=== PATIENT | male | born 1985 | race Caucasian/White ===

== ENCOUNTER 2017-10-12 21:09 | Emergency (ER) | payer OTHER ==
[2017-10-12] MEDS ORDERED: SODIUM CHLORIDE 0.9% 1,000 ML IV STA (21:17)
--- NOTE | 2017-10-12 21:21 | ED ---
Seizure HPI - General Stated Complaint: Seizure, Fall Time Seen by Provider: 10/12/17 21:11 Source: RN notes reviewed, old records reviewed - History of Present Illness Initial Comments: This is a 32-year-old male presents emergency department today chief complaint of seizure activity. He reports that he was on the top of 4 stairs had a seizure and then fell. He arrives EMS. He states is having more frequent seizures over the past 6 months. He is on Depakote and Vimpat. He states he has seen Dr. Shea in the past. Patient states that he has been taking his medications regularly. Denies any fever or chills or any other symptoms. He states that he otherwise isn't feeling well. Related to the fall he does complain of some lower back pain. He does have a history of degenerative disc disease in his lumbar spine. - Related Data Home Medications Medication Instructions Recorded Confirmed Albuterol Sulfate [Proair Hfa] 1 - 2 puff INHALATION RT-QID PRN 10/12/17 Cetirizine HCl [Zyrtec] 10 mg PO HS 10/12/17 10/12/17 Divalproex Sodium [Depakote] 500 mg PO BID 10/12/17 10/12/17 Lacosamide [Vimpat] 50 mg PO BID 10/12/17 10/12/17 Allergies Allergy/AdvReac Type Severity Reaction Status Date / Time codeine Allergy Anaphylaxis Verified 10/12/17 21:50 grape Allergy Unknown Verified 10/12/17 21:50 Review of Systems ROS Statement: Those systems with pertinent positive or pertinent negative responses have been documented in the HPI. ROS Other: All systems not noted in ROS Statement are negative. Past Medical History Past Medical History: Asthma, Seizure Disorder Additional Past Medical History / Comment(s): CHRONIC BRONCHITIS History of Any Multi-Drug Resistant Organisms: None Reported Past Surgical History: Adenoidectomy Past Psychological History: Anxiety, Bipolar Smoking Status: Current every day smoker Past Alcohol Use History: Occasional Past Drug Use History: Marijuana General Exam - General Exam Comments Initial Comments: 32-year-old male. Alert and oriented 3. In a c-collar. No distress. He does appear to be somewhat postictal and lethargic. General appearance: alert, in no apparent distress Head exam: Present: atraumatic, normocephalic, normal inspection Eye exam: Present: normal appearance, PERRL, EOMI. Absent: scleral icterus, conjunctival injection, periorbital swelling ENT exam: Present: normal exam, mucous membranes moist Neck exam: Present: normal inspection, other (Patient placed in c-collar.). Absent: tenderness, meningismus, lymphadenopathy Respiratory exam: Present: normal lung sounds bilaterally. Absent: respiratory distress, wheezes, rales, rhonchi, stridor Cardiovascular Exam: Present: regular rate, normal rhythm, normal heart sounds. Absent: systolic murmur, diastolic murmur, rubs, gallop, clicks GI/Abdominal exam: Present: soft, normal bowel sounds. Absent: distended, tenderness, guarding, rebound, rigid Extremities exam: Present: normal inspection, full ROM, normal capillary refill. Absent: tenderness, pedal edema, joint swelling, calf tenderness Back exam: Present: normal inspection, other (Lumbar spinal tenderness.) Neurological exam: Present: alert, oriented X3, CN II-XII intact Expanded Patient oriented to: Present: person, place, time Speech: Present: fluid speech Cranial nerves: EOM's Intact: Normal, Facial Sensation: Normal Cerebellar function: Finger to Nose: Normal Upper motor neuron: Pronator Drift: Normal Sensory exam: Upper Extremity Light Touch: Normal, Lower Extremity Light Touch: Normal Motor strength exam: RUE: 5, LUE: 5, RLE: 5, LLE: 5 Eye Response: (4) open spontaneously Motor Response: (6) obeys commands Verbal Response: (5) oriented [place] Total: 15 Psychiatric exam: Present: normal affect, normal mood Skin exam: Present: warm, dry, intact, normal color. Absent: rash Course Vital Signs 10/12/17 10/12/17 21:19 23:04 Temperature 98.7 F Pulse Rate 91 87 Respiratory 16 18 Rate Blood Pressure 164/102 127/97 O2 Sat by Pulse 98 97 Oximetry - Reevaluation(s) Reevaluation #1: 10/12/17 21:34 Patient had a one episode of tonic-clonic seizure. Was given 1 mg of Ativan. He is postictal at this time. Medical Decision Making - Medical Decision Making This patient is a 32 year old male CC of multiple seizures. Patient had 2 "seizure" episodes in ED, however he had a positive drop arm test. Patient was continuiing to have these episodes for 3 minutes each. Patient fell down the stairs during first seizure episode, and was placed in C collar. Patient was given CT brain and cspine, which was negative and patient was then removed from C collar. All other labs were reviewed and unremarkable. PAtient reports he has multiple seizures a day. His depakote level is within therapuetic range. Patient informed due to history of multiple seizures, as well as 2 seizures and post ictal periods in ED, I wanted to admit the patient. He reported that he did not want to stay and wanted to smoke a cigarrette. Advised him that if he was admitted, I could not allow him to leave and smoke and return. Offered nicotine patch, and patient refused. Patient will be leaving AMA. He is with a friend, whom will be staying with him. Return parameters discussed. - Lab Data Result diagrams: 10/12/17 20:48 10/12/17 20:48 Lab Results 10/12/17 10/12/17 10/12/17 Range/Units 20:48 20:48 20:48 WBC 8.1 (3.8-10.6) k/uL RBC 5.38 (4.30-5.90) m/uL Hgb 15.7 (13.0-17.5) gm/dL Hct 46.4 (39.0-53.0) % MCV 86.4 (80.0-100.0) fL MCH 29.3 (25.0-35.0) pg MCHC 33.9 (31.0-37.0) g/dL RDW 12.8 (11.5-15.5) % Plt Count 178 (150-450) k/uL Neutrophils % 52 % Lymphocytes % 35 % Monocytes % 6 % Eosinophils % 5 % Basophils % 1 % Neutrophils # 4.2 (1.3-7.7) k/uL Lymphocytes # 2.8 (1.0-4.8) k/uL Monocytes # 0.5 (0-1.0) k/uL Eosinophils # 0.4 (0-0.7) k/uL Basophils # 0.1 (0-0.2) k/uL Sodium 142 (137-145) mmol/L Potassium 4.1 (3.5-5.1) mmol/L Chloride 103 (98-107) mmol/L Carbon Dioxide 23 (22-30) mmol/L Anion Gap 16 mmol/L BUN 7 L (9-20) mg/dL Creatinine 0.90 (0.66-1.25) mg/dL Est GFR (CKD-EPI)AfAm >90 (>60 ml/min/1.73 sqM) Est GFR (CKD-EPI)NonAf >90 (>60 ml/min/1.73 sqM) Glucose 89 (74-99) mg/dL Calcium 9.7 (8.4-10.2) mg/dL Total Bilirubin 0.5 (0.2-1.3) mg/dL AST 25 (17-59) U/L ALT 33 (21-72) U/L Alkaline Phosphatase 53 (38-126) U/L Troponin I <0.012 (0.000-0.034) ng/mL Total Protein 6.9 (6.3-8.2) g/dL Albumin 4.3 (3.5-5.0) g/dL Urine Color Urine Appearance (Clear) Urine pH (5.0-8.0) Ur Specific [place] (1.001-1.035) Urine Protein (Negative) Urine Glucose (UA) (Negative) Urine Ketones (Negative) Urine Blood (Negative) Urine Nitrite (Negative) Urine Bilirubin (Negative) Urine Urobilinogen (<2.0) mg/dL Ur Leukocyte Esterase (Negative) Urine Opiates Screen (NotDetected) Ur Oxycodone Screen (NotDetected) Urine Methadone Screen (NotDetected) Ur Propoxyphene Screen (NotDetected) Ur Barbiturates Screen (NotDetected) Valproic Acid 74.9 ug/mL U Tricyclic Antidepress (NotDetected) Ur Phencyclidine Scrn (NotDetected) Ur Amphetamines Screen (NotDetected) U Methamphetamines Scrn (NotDetected) U Benzodiazepines Scrn (NotDetected) Urine Cocaine Screen (NotDetected) U Marijuana (THC) Screen (NotDetected) 10/12/17 Range/Units 23:56 WBC (3.8-10.6) k/uL RBC (4.30-5.90) m/uL Hgb (13.0-17.5) gm/dL Hct (39.0-53.0) % MCV (80.0-100.0) fL MCH (25.0-35.0) pg MCHC (31.0-37.0) g/dL RDW (11.5-15.5) % Plt Count (150-450) k/uL Neutrophils % % Lymphocytes % % Monocytes % % Eosinophils % % Basophils % % Neutrophils # (1.3-7.7) k/uL Lymphocytes # (1.0-4.8) k/uL Monocytes # (0-1.0) k/uL Eosinophils # (0-0.7) k/uL Basophils # (0-0.2) k/uL Sodium (137-145) mmol/L Potassium (3.5-5.1) mmol/L Chloride (98-107) mmol/L Carbon Dioxide (22-30) mmol/L Anion Gap mmol/L BUN (9-20) mg/dL Creatinine (0.66-1.25) mg/dL Est GFR (CKD-EPI)AfAm (>60 ml/min/1.73 sqM) Est GFR (CKD-EPI)NonAf (>60 ml/min/1.73 sqM) Glucose (74-99) mg/dL Calcium (8.4-10.2) mg/dL Total Bilirubin (0.2-1.3) mg/dL AST (17-59) U/L ALT (21-72) U/L Alkaline Phosphatase (38-126) U/L Troponin I (0.000-0.034) ng/mL Total Protein (6.3-8.2) g/dL Albumin (3.5-5.0) g/dL Urine Color Yellow Urine Appearance Clear (Clear) Urine pH 7.0 (5.0-8.0) Ur Specific [place] 1.008 (1.001-1.035) Urine Protein Negative (Negative) Urine Glucose (UA) Negative (Negative) Urine Ketones Negative (Negative) Urine Blood Negative (Negative) Urine Nitrite Negative (Negative) Urine Bilirubin Negative (Negative) Urine Urobilinogen <2.0 (<2.0) mg/dL Ur Leukocyte Esterase Negative (Negative) Urine Opiates Screen Not Detected (NotDetected) Ur Oxycodone Screen Not Detected (NotDetected) Urine Methadone Screen Not Detected (NotDetected) Ur Propoxyphene Screen Not Detected (NotDetected) Ur Barbiturates Screen Not Detected (NotDetected) Valproic Acid ug/mL U Tricyclic Antidepress Not Detected (NotDetected) Ur Phencyclidine Scrn Not Detected (NotDetected) Ur Amphetamines Screen Not Detected (NotDetected) U Methamphetamines Scrn Not Detected (NotDetected) U Benzodiazepines Scrn Not Detected (NotDetected) Urine Cocaine Screen Not Detected (NotDetected) U Marijuana (THC) Screen Detected H (NotDetected) 10/13/17 03:54 EKG shows sinus rhythm, normal EKG. Ventricularly of 89 bpm. FL interval 134 ms. QRS duration 84 ms. QT QTc is 344/[address] elevation or T-wave inversion. 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 No changes. No fractures noted. Normal chest x-ray. No acute changes. Disposition Clinical Impression: Seizure Disposition: Left Against Medical Advice Condition: Stable Referrals: None,Stated [Primary Care Provider] - 1-2 days Aylin Joseph MD [STAFF PHYSICIAN] - 1-2 days Time of Disposition: 01:17
[2017-10-12] MEDS ORDERED: MORPHINE SULFATE 4MG/4ML SYRG IVP ONE (21:24)
[2017-10-12 21:25] VITALS: TEMP 98.7
[2017-10-12] MEDS: LORazepam 2 MG/ML INJ IV STA (21:35)
[2017-10-12 22:02] LABS: Basophils # (A) 0.1 k/uL (0-0.2); Basophils % (A) 1 %; Eosinophils # (A) 0.4 k/uL (0-0.7); Eosinophils % (A) 5 %; HCT 46.4 % (39.0-53.0); HGB 15.7 gm/dL (13.0-17.5); Lymphocytes # (A) 2.8 k/uL (1.0-4.8); Lymphocytes % (A) 35 %; MCH 29.3 pg (25.0-35.0); MCHC 33.9 g/dL (31.0-37.0); MCV 86.4 fL (80.0-100.0); Mean Platelet Volume 7.3; Monocytes # (A) 0.5 k/uL (0-1.0); Monocytes % (A) 6 %; Neutrophils # (A) 4.2 k/uL (1.3-7.7); Neutrophils % (A) 52 %; Platelet Count 178 k/uL (150-450); RBC 5.38 m/uL (4.30-5.90); RDW 12.8 % (11.5-15.5); WBC 8.1 k/uL (3.8-10.6)
[2017-10-12 22:24] LABS: ALT 33 U/L (21-72); AST 25 U/L (17-59); Albumin 4.3 g/dL (3.5-5.0); Alkaline Phosphatase 53 U/L (38-126); Anion Gap 16 mmol/L; Blood Urea Nitrogen 7 mg/dL (9-20); Calcium 9.7 mg/dL (8.4-10.2); Carbon Dioxide 23 mmol/L (22-30); Chloride 103 mmol/L (98-107); Glucose 89 mg/dL (74-99); Potassium 4.1 mmol/L (3.5-5.1); Sodium 142 mmol/L (137-145); Total Bilirubin 0.5 mg/dL (0.2-1.3); Total Protein 6.9 g/dL (6.3-8.2)
--- NOTE | 2017-10-12 22:28 | CT ---
EXAMINATION TYPE: CT brain howard wo con DATE OF EXAM: 10/12/2017 COMPARISON: 10/06/2014 HISTORY: Seizure today, history of seizures. Fall down 4 steps. Posterior head pain. Neck pain CT DLP: 1387 mGycm Automated exposure control for dose reduction was used. TECHNIQUE: CT scan of the head and cervical spine are performed without contrast. FINDINGS: Ventricles have normal size. There is no mass effect nor midline shift. There is no sign of intracranial hemorrhage. The calvarium is intact. The cervical vertebra have normal alignment. Posterior elements are intact. Disc spaces are normal fo r age. The skull base appears intact. Facet joints appear intact. IMPRESSION: Negative CT scan of the brain. Negative CT scan of the cervical spine. No change.
[2017-10-12 22:29] LABS: Valproic Acid (Depakene) 74.9 ug/mL
[2017-10-12 23:06] VITALS: BP 127/97; PULSE 87; RESP 18
--- NOTE | 2017-10-12 23:25 | XR ---
EXAMINATION TYPE: XR chest 2V DATE OF EXAM: 10/12/2017 COMPARISON: 03/03/2016 HISTORY: Chest pain TECHNIQUE: Frontal and lateral views of the chest are obtained. FINDINGS: Heart and mediastinum are normal. Lungs are clear. Diaphragm is normal. Bony thorax appear s normal. IMPRESSION: Normal chest. No change.
--- NOTE | 2017-10-12 23:27 | XR ---
EXAMINATION TYPE: XR lumbar spine 2 or 3V DATE OF EXAM: 10/12/2017 COMPARISON: 03/03/2016 HISTORY: Back pain TECHNIQUE: 3 views FINDINGS: Vertebra have normal spacing and alignment. There is probably L5 spondylolysis. This is unc hanged.. Disc spaces are fairly well-maintained. I see no compression fracture. IMPRESSION: There is probably L5 spondylolysis without any spondylolisthesis. No change. No acute fra cture seen.
[2017-10-13 00:04] LABS: Appearance,Urine Clear (Clear); Bilirubin,Urine Negative (Negative); Blood,Urine Negative (Negative); Color,Urine Yellow; Glucose,Urine (UA) Negative (Negative); Ketones,Urine Negative (Negative); Leukocyte Esterase,Urine Negative (Negative); Nitrite,Urine Negative (Negative); Protein,Urine Negative (Negative); Specific Gravity,Urine 1.008 (1.001-1.035); Urobilinogen,Urine <2.0 mg/dL (<2.0)
[2017-10-13 00:27] LABS: Amphetamine Screen,Urine Not Detected (NotDetected); Barbiturate Screen,Urine Not Detected (NotDetected); Benzodiazepines Screen,Urine Not Detected (NotDetected); Cocaine Screen,Urine Not Detected (NotDetected); Methadone Screen, Urine Not Detected (NotDetected); Opiate Screen,Urine Not Detected (NotDetected); Oxycodone Screen, Urine Not Detected (NotDetected); Phencyclidine Screen,Urine Not Detected (NotDetected); Tricyclic Antidepressant,Urine Not Detected (NotDetected); Urn Cannabinoid Scrn Detected (NotDetected)
[2017-10-13] MEDS: LORazepam 2 MG/ML INJ IV STA (00:43)
== END 2017-10-13 02:06 | disposition left against medical advice (07) ==
LOC: EC 21:09
DX: M54.5 Low back pain (principal); G40.909 Epilepsy, unspecified, not intractable, without status epilepticus; F17.200 Nicotine dependence, unspecified, uncomplicated; Z79.899 Other long term (current) drug therapy; Z88.5 Allergy status to narcotic agent; Z91.018 Allergy to other foods; Z53.8 Procedure and treatment not carried out for other reasons; W10.9XXA Fall (on) (from) unspecified stairs and steps, initial encounter
CPT/HCPCS: 36415; 93005; 80164; 80053; 84484; 85025; 80306; 72100; 71046; 72125; 70450; 99285; 96374; 96361 ×3; J2060; 81003

== ENCOUNTER 2017-12-06 10:43 | Emergency (ER) | payer OTHER ==
[2017-12-06 11:00] VITALS: RESP 18
--- NOTE | 2017-12-06 11:02 | ED ---
General Adult HPI - General Chief complaint: Seizure Stated complaint: Seizure Time Seen by Provider: 12/06/17 11:00 Source: patient, RN notes reviewed Mode of arrival: EMS Limitations: no limitations - History of Present Illness Initial comments: This is a 32-year-old male who presents emergency Department with a past medical history for seizures. Patient states she's been on Depakote for 3 months. Patient states she missed today's dose. Patient denies being sick at all lately however he states he does have a dry cough. Patient denies any nausea vomiting diarrhea. Patient denies chest pain palpitations. Patient denies any headache patient denies numbness weakness. Patient denies any lightheadedness or dizziness. Patient denies abdominal pain. Patient denies any recent injury or trauma. He states he was at his neurologist office when he sees in a chair and they sent him here. Patient denies drug use. - Related Data Home Medications Medication Instructions Recorded Confirmed Albuterol Sulfate [Proair Hfa] 1 - 2 puff INHALATION RT-QID PRN 10/12/17 Cetirizine HCl [Zyrtec] 10 mg PO HS 10/12/17 12/06/17 Divalproex Sodium [Depakote] 500 mg PO BID 10/12/17 12/06/17 Allergies Allergy/AdvReac Type Severity Reaction Status Date / Time codeine Allergy Anaphylaxis Verified 12/06/17 11:05 grape Allergy Unknown Verified 12/06/17 11:05 Review of Systems ROS Statement: Those systems with pertinent positive or pertinent negative responses have been documented in the HPI. ROS Other: All systems not noted in ROS Statement are negative. Past Medical History Past Medical History: Asthma, Seizure Disorder Additional Past Medical History / Comment(s): CHRONIC BRONCHITIS History of Any Multi-Drug Resistant Organisms: None Reported Past Surgical History: Adenoidectomy Past Psychological History: Anxiety, Bipolar Smoking Status: Current every day smoker Past Alcohol Use History: Occasional Past Drug Use History: Marijuana General Exam - General Exam Comments Initial Comments: GENERAL: Patient is well-developed and well-nourished. Patient is nontoxic and well- hydrated and is in no acute distress. ENT: Neck is soft and supple. No significant lymphadenopathy is noted. Oropharynx is clear. Moist mucous membranes. Neck has full range of motion without eliciting any pain. EYES: The sclera were anicteric and conjunctiva were pink and moist. Extraocular movements were intact and pupils were equal round and reactive to light. Eyelids were unremarkable. PULMONARY: Unlabored respirations. Good breath sounds bilaterally. No audible rales rhonchi or wheezing was noted. CARDIOVASCULAR: There is a regular rate and rhythm without any murmurs gallops or rubs. ABDOMEN: Soft and nontender with normal bowel sounds. No palpable organomegaly was noted. There is no palpable pulsatile mass. SKIN: Skin is clear with no lesions or rashes and otherwise unremarkable. NEUROLOGIC: Patient is alert and oriented x3. Cranial nerves II through XII are grossly intact. Motor and sensory are also intact. Normal speech, volume and content. Symmetrical smile. MUSCULOSKELETAL: Normal extremities with adequate strength and full range of motion. No lower extremity swelling or edema. No calf tenderness. LYMPHATICS: No significant lymphadenopathy is noted PSYCHIATRIC: Normal psychiatric evaluation. Normal interpersonal interactions appears functionally intact in deals appropriately with others. No signs of depression. No signs of anxiety. Limitations: no limitations Course Vital Signs 12/06/17 10:56 Temperature 98.4 F Pulse Rate 74 Respiratory 18 Rate Blood Pressure 134/62 O2 Sat by Pulse 99 Oximetry Medical Decision Making - Medical Decision Making I spoke with Dr. Joseph's PA and he stated that the patient was a noncompliant patient. - Lab Data Result diagrams: 12/06/17 11:10 12/06/17 11:10 Lab Results 12/06/17 12/06/17 12/06/17 Range/Units 11:10 11:10 11:10 WBC 7.7 (3.8-10.6) k/uL RBC 5.08 (4.30-5.90) m/uL Hgb 15.3 (13.0-17.5) gm/dL Hct 44.5 (39.0-53.0) % MCV 87.6 (80.0-100.0) fL MCH 30.2 (25.0-35.0) pg MCHC 34.5 (31.0-37.0) g/dL RDW 13.7 (11.5-15.5) % Plt Count 206 (150-450) k/uL Neutrophils % 64 % Lymphocytes % 23 % Monocytes % 7 % Eosinophils % 5 % Basophils % 0 % Neutrophils # 4.9 (1.3-7.7) k/uL Lymphocytes # 1.8 (1.0-4.8) k/uL Monocytes # 0.5 (0-1.0) k/uL Eosinophils # 0.4 (0-0.7) k/uL Basophils # 0.0 (0-0.2) k/uL Sodium 142 (137-145) mmol/L Potassium 4.2 (3.5-5.1) mmol/L Chloride 104 (98-107) mmol/L Carbon Dioxide 26 (22-30) mmol/L Anion Gap 12 mmol/L BUN 13 (9-20) mg/dL Creatinine 0.80 (0.66-1.25) mg/dL Est GFR (CKD-EPI)AfAm >90 (>60 ml/min/1.73 sqM) Est GFR (CKD-EPI)NonAf >90 (>60 ml/min/1.73 sqM) Glucose 109 H (74-99) mg/dL Calcium 9.1 (8.4-10.2) mg/dL Total Bilirubin 0.3 (0.2-1.3) mg/dL AST 22 (17-59) U/L ALT 33 (21-72) U/L Alkaline Phosphatase 46 (38-126) U/L Total Protein 6.2 L (6.3-8.2) g/dL Albumin 3.9 (3.5-5.0) g/dL Urine Opiates Screen (NotDetected) Ur Oxycodone Screen (NotDetected) Urine Methadone Screen (NotDetected) Ur Propoxyphene Screen (NotDetected) Ur Barbiturates Screen (NotDetected) Valproic Acid 39.6 ug/mL U Tricyclic Antidepress (NotDetected) Ur Phencyclidine Scrn (NotDetected) Ur Amphetamines Screen (NotDetected) U Methamphetamines Scrn (NotDetected) U Benzodiazepines Scrn (NotDetected) Urine Cocaine Screen (NotDetected) U Marijuana (THC) Screen (NotDetected) 12/06/17 Range/Units 12:13 WBC (3.8-10.6) k/uL RBC (4.30-5.90) m/uL Hgb (13.0-17.5) gm/dL Hct (39.0-53.0) % MCV (80.0-100.0) fL MCH (25.0-35.0) pg MCHC (31.0-37.0) g/dL RDW (11.5-15.5) % Plt Count (150-450) k/uL Neutrophils % % Lymphocytes % % Monocytes % % Eosinophils % % Basophils % % Neutrophils # (1.3-7.7) k/uL Lymphocytes # (1.0-4.8) k/uL Monocytes # (0-1.0) k/uL Eosinophils # (0-0.7) k/uL Basophils # (0-0.2) k/uL Sodium (137-145) mmol/L Potassium (3.5-5.1) mmol/L Chloride (98-107) mmol/L Carbon Dioxide (22-30) mmol/L Anion Gap mmol/L BUN (9-20) mg/dL Creatinine (0.66-1.25) mg/dL Est GFR (CKD-EPI)AfAm (>60 ml/min/1.73 sqM) Est GFR (CKD-EPI)NonAf (>60 ml/min/1.73 sqM) Glucose (74-99) mg/dL Calcium (8.4-10.2) mg/dL Total Bilirubin (0.2-1.3) mg/dL AST (17-59) U/L ALT (21-72) U/L Alkaline Phosphatase (38-126) U/L Total Protein (6.3-8.2) g/dL Albumin (3.5-5.0) g/dL Urine Opiates Screen Not Detected (NotDetected) Ur Oxycodone Screen Not Detected (NotDetected) Urine Methadone Screen Not Detected (NotDetected) Ur Propoxyphene Screen Not Detected (NotDetected) Ur Barbiturates Screen Not Detected (NotDetected) Valproic Acid ug/mL U Tricyclic Antidepress Not Detected (NotDetected) Ur Phencyclidine Scrn Not Detected (NotDetected) Ur Amphetamines Screen Not Detected (NotDetected) U Methamphetamines Scrn Not Detected (NotDetected) U Benzodiazepines Scrn Not Detected (NotDetected) Urine Cocaine Screen Not Detected (NotDetected) U Marijuana (THC) Screen Detected H (NotDetected) Disposition Clinical Impression: Generalized seizure Disposition: HOME SELF-CARE Condition: Good Instructions: Recurrent Seizures in Adults (ED) Is patient prescribed a controlled substance at d/c from ED?: No Referrals: None,Stated [Primary Care Provider] - 1-2 days Time of Disposition: 13:32
[2017-12-06 11:26] LABS: Basophils % (A) 0 %; Eosinophils # (A) 0.4 k/uL (0-0.7); Eosinophils % (A) 5 %; HCT 44.5 % (39.0-53.0); HGB 15.3 gm/dL (13.0-17.5); Lymphocytes # (A) 1.8 k/uL (1.0-4.8); Lymphocytes % (A) 23 %; MCH 30.2 pg (25.0-35.0); MCHC 34.5 g/dL (31.0-37.0); MCV 87.6 fL (80.0-100.0); Monocytes # (A) 0.5 k/uL (0-1.0); Monocytes % (A) 7 %; Neutrophils # (A) 4.9 k/uL (1.3-7.7); Neutrophils % (A) 64 %; Platelet Count 206 k/uL (150-450); RBC 5.08 m/uL (4.30-5.90); RDW 13.7 % (11.5-15.5); WBC 7.7 k/uL (3.8-10.6)
[2017-12-06 11:46] LABS: ALT 33 U/L (21-72); AST 22 U/L (17-59); Albumin 3.9 g/dL (3.5-5.0); Alkaline Phosphatase 46 U/L (38-126); Anion Gap 12 mmol/L; Blood Urea Nitrogen 13 mg/dL (9-20); Calcium 9.1 mg/dL (8.4-10.2); Carbon Dioxide 26 mmol/L (22-30); Chloride 104 mmol/L (98-107); Glucose 109 mg/dL (74-99); Potassium 4.2 mmol/L (3.5-5.1); Sodium 142 mmol/L (137-145); Total Bilirubin 0.3 mg/dL (0.2-1.3); Total Protein 6.2 g/dL (6.3-8.2)
[2017-12-06 12:27] LABS: Amphetamine Screen,Urine Not Detected (NotDetected); Barbiturate Screen,Urine Not Detected (NotDetected); Benzodiazepines Screen,Urine Not Detected (NotDetected); Cocaine Screen,Urine Not Detected (NotDetected); Methadone Screen, Urine Not Detected (NotDetected); Opiate Screen,Urine Not Detected (NotDetected); Oxycodone Screen, Urine Not Detected (NotDetected); Phencyclidine Screen,Urine Not Detected (NotDetected); Tricyclic Antidepressant,Urine Not Detected (NotDetected); Urn Cannabinoid Scrn Detected (NotDetected)
--- NOTE | 2017-12-06 13:16 | XR ---
EXAMINATION TYPE: XR chest 2V DATE OF EXAM: 12/06/2017 COMPARISON: 10/12/2017 INDICATION: Difficulty breathing, seizure TECHNIQUE: Frontal and lateral views of the chest are obtained. FINDINGS: The heart size is normal. The pulmonary vasculature is normal. The lungs are clear. IMPRESSION: 1. No acute pulmonary process.
[2017-12-06] MEDS ORDERED: DIVALPROEX 500 MG TABLET.DR PO STA (13:30)
[2017-12-06 13:40] VITALS: BP 134/71; PULSE 76; TEMP 97.8
== END 2017-12-06 13:47 | disposition home or self-care (01) ==
LOC: EC 10:43
DX: G40.909 Epilepsy, unspecified, not intractable, without status epilepticus (principal); R05 Cough; J45.909 Unspecified asthma, uncomplicated; F41.9 Anxiety disorder, unspecified; F31.9 Bipolar disorder, unspecified; F17.200 Nicotine dependence, unspecified, uncomplicated; Z79.899 Other long term (current) drug therapy; Z88.5 Allergy status to narcotic agent; Z91.018 Allergy to other foods
CPT/HCPCS: 36415; 71046; 80053; 80164; 80306; 85025; 99284

== ENCOUNTER 2018-07-16 14:43 | Emergency (ER) | payer OTHER ==
[2018-07-16 15:11] VITALS: RESP 16
[2018-07-16] MEDS ORDERED: LORazepam 2 MG/ML INJ IV STA (15:11)
--- NOTE | 2018-07-16 15:19 | ED ---
General Adult HPI - General Chief complaint: Seizure Stated complaint: Seizure Source: patient, family Mode of arrival: wheelchair Limitations: altered mental status - History of Present Illness Initial comments: 33yo male with previous seizure disorder presenting today for chief complaint of medication noncompliance and recurring seizures. Upon chart review there are noted examination findings including positive drop arm testing during "seizure activity". Upon presentation today patient states that he has had increasing seizures since he has been off of his medication of Depakote a 500 mg twice a day. Patient states that he lost his insurance recently has not been able to afford these medications for almost a year. Patient states he has been kicked out of 2 neurology offices due to noncompliance. Patient states he has been stressed from being jobless and lives circumstances so he feels this could be causing the seizure activity. He states he was not able to get much sleep last night due to seizure activity. The seizures were not witnessed, patient denies any biting of tongue or incontinence. Patient is unsure if he has fallen, he states he thinks it all happened in his bed. Patient states he was on his way to work, his grandfather was driving him when his grandfather stated he began shaking. Denied loss of consciousness. Patient was alert and oriented 3 following "seizure like activity". Upon arrival pt is AAOx3, this was 2 minutes following seizure in care. No evidence of incontinence. Pt appears well. Remainder of ROS (-), patient denies any recent fever, chills, shortness of breath, chest pain, back pain, abdominal pain, nausea or vomiting, numbness or tingling, dysuria or hematuria, constipation or diarrhea, headaches or visual changes, or any other complaints. - Related Data Home Medications Medication Instructions Recorded Confirmed Albuterol Sulfate [Proair Hfa] 1 - 2 puff INHALATION RT-QID PRN 10/12/17 Cetirizine HCl [Zyrtec] 10 mg PO HS 10/12/17 12/06/17 Divalproex Sodium [Depakote] 500 mg PO BID 10/12/17 12/06/17 Previous Rx's Medication Instructions Recorded Divalproex [Depakote] 500 mg PO BID 10 Days #20 tablet. 07/16/18 Allergies Allergy/AdvReac Type Severity Reaction Status Date / Time codeine Allergy Anaphylaxis Verified 07/16/18 15:11 grape Allergy Unknown Verified 07/16/18 15:11 Review of Systems ROS Statement: Those systems with pertinent positive or pertinent negative responses have been documented in the HPI. ROS Other: All systems not noted in ROS Statement are negative. Past Medical History Past Medical History: Asthma, Seizure Disorder Additional Past Medical History / Comment(s): CHRONIC BRONCHITIS History of Any Multi-Drug Resistant Organisms: None Reported Past Surgical History: Adenoidectomy Past Psychological History: Anxiety, Bipolar Smoking Status: Current every day smoker Past Alcohol Use History: Occasional Past Drug Use History: Marijuana General Exam - General Exam Comments Initial Comments: General: The patient is awake and alert, in no distress, and does not appear acutely ill. Eye: +3 mm pupils are equal, round and reactive to light, extra-ocular movements are intact. No nystagmus. There is normal conjunctiva bilaterally. No signs of icterus. Ears, nose, mouth and throat: There are moist mucous membranes and no oral lesions. No midline pain to palpation of the cervical spine. Full range motion of the cervical spine. No evidence of oral injury, no tongue or oral mucosa lesions/ lacerations. Neck: The neck is supple, there is no tenderness or JVD. Cardiovascular: There is a regular rate and rhythm. No murmur, rub or gallop is appreciated. Respiratory: Lungs are clear to auscultation, respirations are non-labored, breath sounds are equal. No wheezes, stridor, rales, or rhonchi. Gastrointestinal: Soft, non-distended, non-tender abdomen without masses or organomegaly noted. There is no rebound or guarding present. No CVA tenderness. Bowel sounds are unremarkable. Musculoskeletal: Normal ROM, no tenderness. Strength 5/5. Sensation intact. Radial and DP pulses equal bilaterally 2+. Neurological: A&O x 3. CN II-XII intact, memory intact to immediately, intermediate and care home recall. Able to follow simple verbal. Able to name a common object (pen). High quality, labial (pa) and lingual (la) speech. Low quality posterior pharynx/larynx (ga) voice sounds. Able to express general knowledge (days in a week). No hemineglect or inattention noted. Finger agnosia (-) and spatially oriented (identified L index finger touched R shoulder with L index finger). Light touch and temperature sensation present over the face, chest, abdomen, back, UE bilaterally, and LE bilaterally. Able to localize point during point localization b/l and extinction. No visible bulk atrophy, hypertrophy, fasciculations, or myoclonus of the UE or LE b/l. Full PROM in UE and LE b/l. Bilateral muscle strength 5/5 for the following muscles: deltoid, biceps, triceps, brachioradialis, wrist extensors/flexor, hip flexor, hip abductors/adductors, hamstrings, quadriceps, feet dorsiflexors/plantar flexors. Finger to nose, finger to the examiners finger, and heel to howard coordinated and accurate b/l. Coordinated and even demonstration of hand flip, finger to thumb, and toe tap b/l. Gait is coordinated and even in stride with tandem. (-) pronator drift. No nuchal rigidity. (-) Brudzinskis and Kernig signs. Skin: Skin is warm and dry and no rashes or lesions are noted. No evidence of incontinence. Psychiatric: Cooperative, appropriate mood & affect, normal judgment. Limitations: altered mental status Course Vital Signs 07/16/18 07/16/18 07/16/18 15:00 17:33 17:55 Temperature 98.3 F 98.4 F Pulse Rate 78 80 Respiratory 16 16 16 Rate Blood Pressure 163/83 150/70 O2 Sat by Pulse 96 97 Oximetry EKG Findings - EKG Comments: EKG Findings:: A 12-lead EKG was performed and shows the following: Rate is 66bpm, and rhythm is normal sinus with sinus arrhythmia. There are normal QRS complexes and normal R-wave progression. ST segments have no elevation or depression, and [place] segments appear normal. Medical Decision Making - Medical Decision Making EKG no acute findings. Laboratory studies unremarkable. CK WNL. No elevation of WBC. CT obtained given patient on clear history of head trauma. Negative for acute intracranial process. "Seizure activity" witnessed by the nurse-she stated did not appear to be consistent with a true tonic-clonic seizure, she states all 4 extremities removing however patient was lifting himself off the bed, and verbal. She denied incontinence. Patient did not have a postictal phase. Patient was speaking alert and oriented 3 within 2 minutes post seizure when I arrived in the room. Given patient is subtherapeutic on seizure medications with known seizure disorder, I do feel patient is stable for discharge with refill of medication. Patient was given information regarding a free reduced cost clinic. Patient states that he will purchase medication following discharge. Patient is to follow-up outpatient with neurology as well as primary care, patient verbalizes understanding. Upon discharge patient is well-appearing, no additional episodes of seizure-like activity. Patient given 1 g depakote prior to discharge. Case discussed in detail with Dr. Ferreira who agreed with impression and plan. Return parameters were discussed at length with patient prior to discharge. Pt verbalized understanding. Patient discharged in stable condition. Well. Patient requested work note upon discharge. This was provided. - Lab Data Result diagrams: 07/16/18 15:10 07/16/18 15:10 Lab Results 07/16/18 07/16/18 07/16/18 Range/Units 15:10 15:10 15:10 WBC 8.1 (3.8-10.6) k/uL RBC 5.50 (4.30-5.90) m/uL Hgb 16.5 (13.0-17.5) gm/dL Hct 48.5 (39.0-53.0) % MCV 88.2 (80.0-100.0) fL MCH 30.1 (25.0-35.0) pg MCHC 34.1 (31.0-37.0) g/dL RDW 13.0 (11.5-15.5) % Plt Count 228 (150-450) k/uL Neutrophils % 61 % Lymphocytes % 29 % Monocytes % 4 % Eosinophils % 4 % Basophils % 1 % Neutrophils # 4.9 (1.3-7.7) k/uL Lymphocytes # 2.3 (1.0-4.8) k/uL Monocytes # 0.4 (0-1.0) k/uL Eosinophils # 0.3 (0-0.7) k/uL Basophils # 0.1 (0-0.2) k/uL Sodium 137 (137-145) mmol/L Potassium 4.4 (3.5-5.1) mmol/L Chloride 107 (98-107) mmol/L Carbon Dioxide 19 L (22-30) mmol/L Anion Gap 11 mmol/L BUN 10 (9-20) mg/dL Creatinine 0.92 (0.66-1.25) mg/dL Est GFR (CKD-EPI)AfAm >90 (>60 ml/min/1.73 sqM) Est GFR (CKD-EPI)NonAf >90 (>60 ml/min/1.73 sqM) Glucose 110 H (74-99) mg/dL Calcium 9.6 (8.4-10.2) mg/dL Total Bilirubin 0.7 (0.2-1.3) mg/dL AST 25 (17-59) U/L ALT 28 (21-72) U/L Alkaline Phosphatase 55 (38-126) U/L CK-MB (CK-2) (0.0-2.4) ng/mL Total Protein 7.1 (6.3-8.2) g/dL Albumin 4.5 (3.5-5.0) g/dL Urine Color Light Yellow Urine Appearance Clear (Clear) Urine pH 6.0 (5.0-8.0) Ur Specific Dawson 1.005 (1.001-1.035) Urine Protein Negative (Negative) Urine Glucose (UA) Negative (Negative) Urine Ketones Negative (Negative) Urine Blood Negative (Negative) Urine Nitrite Negative (Negative) Urine Bilirubin Negative (Negative) Urine Urobilinogen <2.0 (<2.0) mg/dL Ur Leukocyte Esterase Negative (Negative) Urine Opiates Screen Not Detected (NotDetected) Ur Oxycodone Screen Not Detected (NotDetected) Urine Methadone Screen Not Detected (NotDetected) Ur Propoxyphene Screen Not Detected (NotDetected) Ur Barbiturates Screen Not Detected (NotDetected) Valproic Acid <10.0 ug/mL U Tricyclic Antidepress Not Detected (NotDetected) Ur Phencyclidine Scrn Not Detected (NotDetected) Ur Amphetamines Screen Not Detected (NotDetected) U Methamphetamines Scrn Not Detected (NotDetected) U Benzodiazepines Scrn Not Detected (NotDetected) Urine Cocaine Screen Not Detected (NotDetected) U Marijuana (THC) Screen Detected H (NotDetected) 07/16/18 Range/Units 15:10 WBC (3.8-10.6) k/uL RBC (4.30-5.90) m/uL Hgb (13.0-17.5) gm/dL Hct (39.0-53.0) % MCV (80.0-100.0) fL MCH (25.0-35.0) pg MCHC (31.0-37.0) g/dL RDW (11.5-15.5) % Plt Count (150-450) k/uL Neutrophils % % Lymphocytes % % Monocytes % % Eosinophils % % Basophils % % Neutrophils # (1.3-7.7) k/uL Lymphocytes # (1.0-4.8) k/uL Monocytes # (0-1.0) k/uL Eosinophils # (0-0.7) k/uL Basophils # (0-0.2) k/uL Sodium (137-145) mmol/L Potassium (3.5-5.1) mmol/L Chloride (98-107) mmol/L Carbon Dioxide (22-30) mmol/L Anion Gap mmol/L BUN (9-20) mg/dL Creatinine (0.66-1.25) mg/dL Est GFR (CKD-EPI)AfAm (>60 ml/min/1.73 sqM) Est GFR (CKD-EPI)NonAf (>60 ml/min/1.73 sqM) Glucose (74-99) mg/dL Calcium (8.4-10.2) mg/dL Total Bilirubin (0.2-1.3) mg/dL AST (17-59) U/L ALT (21-72) U/L Alkaline Phosphatase (38-126) U/L CK-MB (CK-2) 0.6 (0.0-2.4) ng/mL Total Protein (6.3-8.2) g/dL Albumin (3.5-5.0) g/dL Urine Color Urine Appearance (Clear) Urine pH (5.0-8.0) Ur Specific Dawson (1.001-1.035) Urine Protein (Negative) Urine Glucose (UA) (Negative) Urine Ketones (Negative) Urine Blood (Negative) Urine Nitrite (Negative) Urine Bilirubin (Negative) Urine Urobilinogen (<2.0) mg/dL Ur Leukocyte Esterase (Negative) Urine Opiates Screen (NotDetected) Ur Oxycodone Screen (NotDetected) Urine Methadone Screen (NotDetected) Ur Propoxyphene Screen (NotDetected) Ur Barbiturates Screen (NotDetected) Valproic Acid ug/mL U Tricyclic Antidepress (NotDetected) Ur Phencyclidine Scrn (NotDetected) Ur Amphetamines Screen (NotDetected) U Methamphetamines Scrn (NotDetected) U Benzodiazepines Scrn (NotDetected) Urine Cocaine Screen (NotDetected) U Marijuana (THC) Screen (NotDetected) Disposition Clinical Impression: Tremor, Non-compliance, Seizure secondary to subtherapeutic anticonvulsant medication Disposition: HOME SELF-CARE Condition: Good Additional Instructions: Please use medication as discussed. Please follow-up with family doctor in the next 2 days, please follow-up with neurology in next week. Please return to emergency room if the symptoms increase or worsen or for any other concerns. Prescriptions: Divalproex [Depakote] 500 mg PO BID 10 Days #20 tablet.dr Is patient prescribed a controlled substance at d/c from ED?: No Referrals: None,Stated [Primary Care Provider] - 1-2 days [facility] [NON-STAFF] - 1-2 days Time of Disposition: 17:16
[2018-07-16 16:05] LABS: Basophils # (A) 0.1 k/uL (0-0.2); Basophils % (A) 1 %; Eosinophils # (A) 0.3 k/uL (0-0.7); Eosinophils % (A) 4 %; HCT 48.5 % (39.0-53.0); HGB 16.5 gm/dL (13.0-17.5); Lymphocytes # (A) 2.3 k/uL (1.0-4.8); Lymphocytes % (A) 29 %; MCH 30.1 pg (25.0-35.0); MCHC 34.1 g/dL (31.0-37.0); MCV 88.2 fL (80.0-100.0); Mean Platelet Volume 7.3; Monocytes # (A) 0.4 k/uL (0-1.0); Monocytes % (A) 4 %; Neutrophils # (A) 4.9 k/uL (1.3-7.7); Neutrophils % (A) 61 %; Platelet Count 228 k/uL (150-450); WBC 8.1 k/uL (3.8-10.6)
[2018-07-16 16:11] LABS: Appearance,Urine Clear (Clear); Bilirubin,Urine Negative (Negative); Blood,Urine Negative (Negative); Color,Urine Light Yellow; Glucose,Urine (UA) Negative (Negative); Ketones,Urine Negative (Negative); Leukocyte Esterase,Urine Negative (Negative); Nitrite,Urine Negative (Negative); Protein,Urine Negative (Negative); Specific Gravity,Urine 1.005 (1.001-1.035); Urobilinogen,Urine <2.0 mg/dL (<2.0)
[2018-07-16 16:21] LABS: Amphetamine Screen,Urine Not Detected (NotDetected); Barbiturate Screen,Urine Not Detected (NotDetected); Benzodiazepines Screen,Urine Not Detected (NotDetected); Cocaine Screen,Urine Not Detected (NotDetected); Methadone Screen, Urine Not Detected (NotDetected); Opiate Screen,Urine Not Detected (NotDetected); Oxycodone Screen, Urine Not Detected (NotDetected); Phencyclidine Screen,Urine Not Detected (NotDetected); Tricyclic Antidepressant,Urine Not Detected (NotDetected); Urn Cannabinoid Scrn Detected (NotDetected)
[2018-07-16 16:29] LABS: ALT 28 U/L (21-72); AST 25 U/L (17-59); Albumin 4.5 g/dL (3.5-5.0); Alkaline Phosphatase 55 U/L (38-126); Anion Gap 11 mmol/L; Blood Urea Nitrogen 10 mg/dL (9-20); Calcium 9.6 mg/dL (8.4-10.2); Carbon Dioxide 19 mmol/L (22-30); Chloride 107 mmol/L (98-107); Glucose 110 mg/dL (74-99); Potassium 4.4 mmol/L (3.5-5.1); Sodium 137 mmol/L (137-145); Total Bilirubin 0.7 mg/dL (0.2-1.3); Total Protein 7.1 g/dL (6.3-8.2)
[2018-07-16 16:34] LABS: Valproic Acid (Depakene) <10.0 ug/mL
--- NOTE | 2018-07-16 16:45 | CT ---
EXAMINATION TYPE: CT brain cspine wo con DATE OF EXAM: 07/16/2018 COMPARISON: CT brain and cervical spine October 12, 2017. HISTORY: Seizure activity with fall causing headache and neck pain. CT DLP: 1456.9 mGycm. Automated Exposure Control for Dose Reduction was Utilized. TECHNIQUE: CT scan of the head and cervical spine are performed without contrast. FINDINGS: There is no acute intracranial hemorrhage, mass effect, or midline shift identified. The ventricles and sulci are within normal limits in size. The globes are intact and the visualized sin uses are clear. The calvarium is intact. Cervical spine is visualized in its entirety from C1 through upper thoracic levels and demonstrates s atisfactory alignment without evidence of acute fracture or dislocation. Prevertebral soft tissue ap pears within normal limits. The C1-C2 articulation is within normal limits on the coronal images. V ertebral body heights and disc space heights are maintained. No large posterior disc herniations are present. No significant spurring is seen. Thyroid gland is felt within normal limits. Lung apices are clear. IMPRESSION: 1. There is no acute fracture or dislocation evident in the cervical spine. 2. No acute intracranial hemorrhage or midline shift is seen. No significant change from prior.
[2018-07-16] MEDS ORDERED: DIVALPROEX 500 MG TABLET.DR PO STA (17:14)
[2018-07-16 17:56] VITALS: BP 150/70; PULSE 80; TEMP 98.4
== END 2018-07-16 17:55 | disposition home or self-care (01) ==
LOC: EC 14:43
DX: G40.909 Epilepsy, unspecified, not intractable, without status epilepticus (principal); T42.6X5A Adverse effect of other antiepileptic and sedative-hypnotic drugs, initial encounter; Z91.14 Patient's other noncompliance with medication regimen; J45.909 Unspecified asthma, uncomplicated; F31.9 Bipolar disorder, unspecified; F41.9 Anxiety disorder, unspecified; F17.200 Nicotine dependence, unspecified, uncomplicated; Z79.899 Other long term (current) drug therapy; Z88.5 Allergy status to narcotic agent; Z91.018 Allergy to other foods
CPT/HCPCS: 36415; 93005; 80164; 80053; 82553; 85025; 81003; 80306; 72125; 70450; 99284; 96374; J2060

== ENCOUNTER 2018-08-13 12:03 | Emergency (ER) | payer OTHER ==
[2018-08-13] MEDS ORDERED: DIVALPROEX 500 MG TABLET.DR PO STA (12:48)
--- NOTE | 2018-08-13 12:56 | ED ---
General Adult HPI - General Chief complaint: Seizure Stated complaint: seizure Time Seen by Provider: 08/13/18 12:25 Source: patient Mode of arrival: wheelchair Limitations: no limitations - History of Present Illness Initial comments: 33-year-old male past medical history of seizure disorder presenting today for chief complaint of seizure activity. Patient states this morning prior to work he began having seizure-like activity. He states he would not come to the emergency department however he needed a work note. Patient states this happened last month. He states he has been out of his Depakote twice daily since July and hasnt taken it for over a year prior to that. Pt states he was told at one time he was told he had pseudo seizures. Pt denies biting tongue or incontinence. Patient denies any muscle weakness, nausea, vomiting, headache, paresthesias or tingling loss of sensation of the upper or lower extremity. Patient denies any facial asymmetry, difficulty swallowing or difficulty speaking. Patient had seizure-like activity in triage, however he seemed to maintain muscular according to nursing staff, once in room pt has another episode of seizure like activity was given ativan, nursing staff again states they were unsure if it was a seizure but pt was shaking all 4 extremities. Pt was AAOx3 shortly after. Responding to questions and I was able to obtain history without difficulty, no signs of AMS. Patient states he's been kicked out of 2 neurology offices and no longer has insurance to see a primary care or afford his medication. Upon arrival pt has elevated BP reading remaining VS within acceptable limits, pt AAOx3. - Related Data Home Medications Medication Instructions Recorded Confirmed Albuterol Sulfate [Proair Hfa] 1 - 2 puff INHALATION RT-QID PRN 10/12/17 Cetirizine HCl [Zyrtec] 10 mg PO HS 10/12/17 12/06/17 Divalproex Sodium [Depakote] 500 mg PO BID 10/12/17 12/06/17 Previous Rx's Medication Instructions Recorded Divalproex [Depakote] 500 mg PO BID 10 Days #20 tablet. 07/16/18 Divalproex [Depakote] 500 mg PO BID 15 Days #30 tablet. 08/13/18 Allergies Allergy/AdvReac Type Severity Reaction Status Date / Time codeine Allergy Anaphylaxis Verified 07/16/18 15:11 grape Allergy Unknown Verified 07/16/18 15:11 Review of Systems ROS Statement: Those systems with pertinent positive or pertinent negative responses have been documented in the HPI. ROS Other: All systems not noted in ROS Statement are negative. Past Medical History Past Medical History: Asthma, Seizure Disorder Additional Past Medical History / Comment(s): CHRONIC BRONCHITIS History of Any Multi-Drug Resistant Organisms: None Reported Past Surgical History: Adenoidectomy Past Psychological History: Anxiety, Bipolar Smoking Status: Current every day smoker Past Alcohol Use History: Rare Past Drug Use History: Marijuana General Exam - General Exam Comments Initial Comments: General: The patient is awake and alert, in no distress, and does not appear acutely ill. Eye: +3 mm pupils are equal, round and reactive to light, extra-ocular movements are intact. No nystagmus. There is normal conjunctiva bilaterally. No signs of icterus. Ears, nose, mouth and throat: There are moist mucous membranes and no oral lesions. Neck: The neck is supple, there is no tenderness or JVD. Cardiovascular: There is a regular rate and rhythm. No murmur, rub or gallop is appreciated. Respiratory: Lungs are clear to auscultation, respirations are non-labored, breath sounds are equal. No wheezes, stridor, rales, or rhonchi. Gastrointestinal: Soft, non-distended, non-tender abdomen without masses or organomegaly noted. There is no rebound or guarding present. No CVA tenderness. Bowel sounds are unremarkable. Musculoskeletal: Normal ROM, no tenderness. Strength 5/5. Sensation intact. Pulses equal bilaterally 2+. Neurological: A&O x 3. CN II-XII intact, memory intact to immediately, intermediate and senior care recall. Able to follow simple verbal. Able to name a common object (pen). High quality, labial (pa) and lingual (la) speech. Low quality posterior pharynx/larynx (ga) voice sounds. Able to express general knowledge (days in a week). No hemineglect or inattention noted. Finger agnosia (-) and spatially oriented (identified L index finger touched R shoulder with L index finger). Light touch and temperature sensation present over the face, chest, abdomen, back, UE bilaterally, and LE bilaterally. Able to localize point during point localization b/l and extinction. No visible bulk atrophy, hypertrophy, fasciculations, or myoclonus of the UE or LE b/l. Full PROM in UE and LE b/l. Bilateral muscle strength 5/5 for the following muscles: deltoid, biceps, triceps, brachioradialis, wrist extensors/flexor, hip flexor, hip abductors/adductors, hamstrings, quadriceps, feet dorsiflexors/plantar flexors. Finger to nose, finger to the examiners finger, and heel to howard coordinated and accurate b/l. Coordinated and even demonstration of hand flip, finger to thumb, and toe tap b/l. Gait is coordinated and even in stride with tandem, toe and heel walk. (-) pronator drift. . Skin: Skin is warm and dry and no rashes or lesions are noted. Psychiatric: Cooperative, appropriate mood & affect, normal judgment. Limitations: no limitations Course Vital Signs 08/13/18 08/13/18 08/13/18 12:11 12:25 14:58 Temperature 97.8 F 97.9 F Pulse Rate 75 78 Respiratory 18 16 Rate Blood Pressure 143/91 127/70 O2 Sat by Pulse 95 98 Oximetry Medical Decision Making - Medical Decision Making 32-year-old male with past medical history of pseudoseizure presenting today for seizure-like activity. Patient states he has been non-complaint with his home medication of depakote for the past year aside from a prescription i wrote in July in 2018. Pt states she had a seizure today and presented for a work note or he wouldn't have come. pt denies fall or head injury. Pt admits slight headache. Nursing staff stated to me that they had a hard time differentiating if it was an actual seizure. No witnessed activity by myself but evaluated pt moments later, no apparent post ictal phase pt AAOx3. Appearing well. Lactic acid WNL, no leukocytosis. Vital signs within a couple limits. No focal neurological deficits on examination. Patient requesting discharge. I did discuss case with attending provider Dr. Ferreira at this time we do feel patient is stable for discharge with prescription for antiepileptic medication and neurology follow-up. Patient is agreeable plan discharge. - Lab Data Result diagrams: 08/13/18 13:00 08/13/18 13:00 Lab Results 08/13/18 08/13/18 08/13/18 Range/Units 13:00 13:00 13:00 WBC 7.4 (3.8-10.6) k/uL RBC 5.67 (4.30-5.90) m/uL Hgb 16.5 (13.0-17.5) gm/dL Hct 49.7 (39.0-53.0) % MCV 87.6 (80.0-100.0) fL MCH 29.2 (25.0-35.0) pg MCHC 33.3 (31.0-37.0) g/dL RDW 12.9 (11.5-15.5) % Plt Count 234 (150-450) k/uL Neutrophils % 60 % Lymphocytes % 25 % Monocytes % 6 % Eosinophils % 5 % Basophils % 2 % Neutrophils # 4.5 (1.3-7.7) k/uL Lymphocytes # 1.9 (1.0-4.8) k/uL Monocytes # 0.5 (0-1.0) k/uL Eosinophils # 0.4 (0-0.7) k/uL Basophils # 0.1 (0-0.2) k/uL Sodium 138 (137-145) mmol/L Potassium 4.5 (3.5-5.1) mmol/L Chloride 103 (98-107) mmol/L Carbon Dioxide 24 (22-30) mmol/L Anion Gap 11 mmol/L BUN 8 L (9-20) mg/dL Creatinine 1.00 (0.66-1.25) mg/dL Est GFR (CKD-EPI)AfAm >90 (>60 ml/min/1.73 sqM) Est GFR (CKD-EPI)NonAf >90 (>60 ml/min/1.73 sqM) Glucose 94 (74-99) mg/dL Plasma Lactic Acid Christian 1.1 (0.7-2.0) mmol/L Calcium 9.7 (8.4-10.2) mg/dL Total Bilirubin 0.9 (0.2-1.3) mg/dL AST 21 (17-59) U/L ALT 29 (21-72) U/L Alkaline Phosphatase 59 (38-126) U/L Ammonia 17 (<30) umol/L Total Protein 7.0 (6.3-8.2) g/dL Albumin 4.4 (3.5-5.0) g/dL Disposition Clinical Impression: Observed seizure-like activity, History of pseudoseizure Disposition: HOME SELF-CARE Condition: Good Instructions (If sedation given, give patient instructions): Recurrent Seizures in Adults (ED) Additional Instructions: Please use medication as discussed. Please follow-up with family doctor in the next 2 days with neurology and your family doctor. Please return to emergency room if the symptoms increase or worsen or for any other concerns. Prescriptions: Divalproex [Depakote] 500 mg PO BID 15 Days #30 tablet.dr Is patient prescribed a controlled substance at d/c from ED?: No Referrals: None,Stated [Primary Care Provider] - 1-[address] [facility] [NON-[facility]] - 1-2 days Aylin Joseph MD [Medical Doctor] - 1-2 days Time of Disposition: 14:24
[2018-08-13 13:36] LABS: Basophils # (A) 0.1 k/uL (0-0.2); Basophils % (A) 2 %; Eosinophils # (A) 0.4 k/uL (0-0.7); Eosinophils % (A) 5 %; HCT 49.7 % (39.0-53.0); HGB 16.5 gm/dL (13.0-17.5); Lymphocytes # (A) 1.9 k/uL (1.0-4.8); Lymphocytes % (A) 25 %; MCH 29.2 pg (25.0-35.0); MCHC 33.3 g/dL (31.0-37.0); MCV 87.6 fL (80.0-100.0); Mean Platelet Volume 6.6; Monocytes # (A) 0.5 k/uL (0-1.0); Monocytes % (A) 6 %; Neutrophils # (A) 4.5 k/uL (1.3-7.7); Neutrophils % (A) 60 %; Platelet Count 234 k/uL (150-450); RBC 5.67 m/uL (4.30-5.90); RDW 12.9 % (11.5-15.5); WBC 7.4 k/uL (3.8-10.6)
[2018-08-13 13:46] LABS: Lactic Acid, Venous 1.1 mmol/L (0.7-2.0)
[2018-08-13 13:47] LABS: ALT 29 U/L (21-72); AST 21 U/L (17-59); Albumin 4.4 g/dL (3.5-5.0); Alkaline Phosphatase 59 U/L (38-126); Anion Gap 11 mmol/L; Blood Urea Nitrogen 8 mg/dL (9-20); Calcium 9.7 mg/dL (8.4-10.2); Carbon Dioxide 24 mmol/L (22-30); Chloride 103 mmol/L (98-107); Glucose 94 mg/dL (74-99); Potassium 4.5 mmol/L (3.5-5.1); Sodium 138 mmol/L (137-145); Total Bilirubin 0.9 mg/dL (0.2-1.3)
[2018-08-13 14:59] VITALS: BP 127/70; PULSE 78; RESP 16; TEMP 97.9
== END 2018-08-13 14:58 | disposition home or self-care (01) ==
LOC: EC 12:03
DX: G40.909 Epilepsy, unspecified, not intractable, without status epilepticus (principal); R51 Headache; J45.909 Unspecified asthma, uncomplicated; F31.9 Bipolar disorder, unspecified; F17.200 Nicotine dependence, unspecified, uncomplicated; Z79.899 Other long term (current) drug therapy; Z88.5 Allergy status to narcotic agent; Z91.018 Allergy to other foods
CPT/HCPCS: 36415; 80053; 82140; 83605; 85025; 99284

== ENCOUNTER 2018-08-18 17:20 | Emergency (ER) | payer OTHER ==
[2018-08-18 17:30] VITALS: RESP 18
[2018-08-18] MEDS ORDERED: ACETAMINOPHEN TAB 500 MG TAB PO STA (17:47)
[2018-08-18] MEDS ORDERED: LORazepam 2 MG/ML INJ IV STA (17:53)
--- NOTE | 2018-08-18 17:58 | ED ---
Seizure HPI - General Chief Complaint: Seizure Stated Complaint: Seizure Time Seen by Provider: 08/18/18 17:25 Source: patient, EMS Mode of arrival: ambulatory Limitations: no limitations - History of Present Illness Initial Comments: 33-year-old male patient with past medical history significant for seizures presents to the emergency department today for evaluation after experiencing a seizure. Patient states he was at work on his break when the next thing he knew , he woke up and people were standing around him. Bystanders reported that he had 2 seizures while he was out. Patient denies biting his tongue or losing bowel or bladder control. Patient states that he did stop taking his seizure medication in July because his insurance ran out and he cannot afford the prescription. States he has had several seizures since stopping the medication. He is reporting headache currently. States that witnesses reported he had his head when he fell. States he is having some neck discomfort as well. Denies any pain radiation down his arms. Denies any numbness or tingling to his extremities. Denies any current dizziness, weakness , blurred vision, or double vision. Patient was seen and evaluated here 5 days ago for seizure. Patient denies any recent rash, fever, chills, shortness breath , chest pain, abdominal pain, nausea, vomiting, diarrhea, constipation, back pain, hematuria, dysuria, urinary urgency, urinary frequency, or any other complaints. - Related Data Home Medications Medication Instructions Recorded Confirmed Albuterol Sulfate [Proair Hfa] 1 - 2 puff INHALATION RT-QID PRN 10/12/17 Cetirizine HCl [Zyrtec] 10 mg PO HS 10/12/17 12/06/17 Divalproex Sodium [Depakote] 500 mg PO BID 10/12/17 12/06/17 Previous Rx's Medication Instructions Recorded Divalproex [Depakote] 500 mg PO BID 10 Days #20 tablet. 07/16/18 Divalproex [Depakote] 500 mg PO BID 15 Days #30 tablet. 08/13/18 Divalproex Sodium [Depakote] 500 mg PO BID #60 tablet. 08/18/18 Allergies Allergy/AdvReac Type Severity Reaction Status Date / Time codeine Allergy Anaphylaxis Verified 08/18/18 17:30 grape Allergy Unknown Verified 08/18/18 17:30 Review of Systems ROS Statement: Those systems with pertinent positive or pertinent negative responses have been documented in the HPI. ROS Other: All systems not noted in ROS Statement are negative. Past Medical History Past Medical History: Asthma, Seizure Disorder Additional Past Medical History / Comment(s): CHRONIC BRONCHITIS History of Any Multi-Drug Resistant Organisms: None Reported Past Surgical History: Adenoidectomy Past Psychological History: Anxiety, Bipolar Smoking Status: Current every day smoker Past Alcohol Use History: Rare Past Drug Use History: Marijuana General Exam Limitations: no limitations General appearance: alert, in no apparent distress, other (Physical well- developed, well-nourished adult male patient in no acute distress. Vital signs upon presentation are temperature 98.2F, pulse 82, respirations 18, blood pressure 135/119, pulse ox 96% on room air.) Eye exam: Present: normal appearance, PERRL, EOMI. Absent: scleral icterus, conjunctival injection, nystagmus, periorbital swelling ENT exam: Present: normal exam, normal oropharynx, mucous membranes moist Neck exam: Present: normal inspection, other (Midline posterior cervical tenderness). Absent: tenderness, meningismus, full ROM (C-collar in place), lymphadenopathy Respiratory exam: Present: normal lung sounds bilaterally. Absent: respiratory distress, wheezes, rales, rhonchi, stridor Cardiovascular Exam: Present: regular rate, normal rhythm, normal heart sounds. Absent: systolic murmur, diastolic murmur, rubs, gallop, clicks GI/Abdominal exam: Present: soft, normal bowel sounds. Absent: distended, tenderness, guarding, rebound, rigid Extremities exam: Present: normal inspection, full ROM, normal capillary refill , other (Radial pulses 2+ and equal bilaterally. Pedal pulses 2+ and equal bilaterally.). Absent: tenderness, pedal edema, joint swelling, calf tenderness Back exam: Present: normal inspection. Absent: vertebral tenderness Neurological exam: Present: alert, oriented X3, CN II-XII intact Psychiatric exam: Present: normal affect, normal mood Skin exam: Present: warm, dry, intact, normal color. Absent: rash Course Vital Signs 08/18/18 08/18/18 17:26 18:07 Temperature 98.2 F Pulse Rate 82 70 Respiratory 18 18 Rate Blood Pressure 135/119 131/80 O2 Sat by Pulse 96 99 Oximetry Medical Decision Making - Medical Decision Making 33-year-old male patient with past medical history significant for seizures, stopped taking his medication in July due to insurance issues presents to the emergency department today for evaluation after having 2 seizures while at work. Patient did strike his head was complaining of neck pain. Patient was seen and evaluated here in 08/13/2018 for similar complaints. Labs reviewed from that visit Amer within normal range. A CT brain and C-spine was obtained at this visit and did show no acute intracranial or cervical spinal abnormalities. Patient will be discharged home with prescription, he is instructed to go to [facility] where the prescription may be enough for him to afford. He is instructed to follow up with his neurologist and primary care physician for recheck. 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 [facility] Return parameters were discussed in detail. He verbalizes understanding and agrees with this plan. - Radiology Data Radiology results: report reviewed, image reviewed CT brain and C-spine without contrast was obtained. Report reviewed in its entirety. Impression by Dr. Albrecht shows no acute fracture dislocation evident in the cervical spine. No acute intracranial hemorrhage, mass effect, or midline shift is seen. Mild paranasal sinus disease. Disposition Clinical Impression: Recurrent seizures, Head injury Disposition: HOME SELF-CARE Condition: Good Instructions (If sedation given, give patient instructions): Head Injury (ED), Recurrent Seizures in Adults (ED) Additional Instructions: Prescription filled, child vomited for cheaper prescription coverage. Follow- up with your primary care physician for recheck in 1-2 days. Return to the emergency department immediately for any new, worsening, or concerning symptoms. Prescriptions: Divalproex Sodium [Depakote] 500 mg PO BID #60 tablet.dr Is patient prescribed a controlled substance at d/c from ED?: No [facility]: [facility] [[facility]] - 1-2 days Time of Disposition: 18:38
--- NOTE | 2018-08-18 18:14 | CT ---
EXAMINATION TYPE: CT brain cspine wo con DATE OF EXAM: 08/18/2018 COMPARISON: 07/16/2018 HISTORY: Seizure and fall. Subsequent head and neck pain CT DLP: 1521.6 mGycm. Automated Exposure Control for Dose Reduction was Utilized. TECHNIQUE: CT scan of the head and cervical spine are performed without contrast. FINDINGS: There is no acute intracranial hemorrhage, mass effect, or midline shift identified. Prom inent perivascular spaces seen at the level of the inferior basal ganglia on the right on image 22. The ventricles and sulci are within normal limits in size. The globes are intact. Mild mucosal thick ening is seen circumferentially around the left maxillary sinus. Mild mucosal thickening is also pres ent within the ethmoid sinuses. Remaining paranasal sinuses and mastoid air cells are well aerated. Cervical spine is visualized in its entirety from C1 through upper thoracic levels and demonstrates s atisfactory alignment without evidence of acute fracture or dislocation. Prevertebral soft tissue ap pears within normal limits. The C1-C2 articulation is unremarkable. IMPRESSION: 1. There is no acute fracture or dislocation evident in the cervical spine. 2. No acute intracranial hemorrhage, mass effect, or midline shift is seen. 3. Mild paranasal sinus disease.
[2018-08-18 18:55] VITALS: BP 117/83; PULSE 84; TEMP 97.7
== END 2018-08-18 18:54 | disposition home or self-care (01) ==
LOC: EC 17:20
DX: G40.909 Epilepsy, unspecified, not intractable, without status epilepticus (principal); S09.90XA Unspecified injury of head, initial encounter; J32.9 Chronic sinusitis, unspecified; M54.2 Cervicalgia; J45.909 Unspecified asthma, uncomplicated; F31.9 Bipolar disorder, unspecified; F17.200 Nicotine dependence, unspecified, uncomplicated; Z88.5 Allergy status to narcotic agent; Z91.018 Allergy to other foods; Z79.899 Other long term (current) drug therapy; W01.10XA Fall on same level from slipping, tripping and stumbling with subsequent striking against unspecified object, initial encounter; Y92.69 Other specified industrial and construction area as the place of occurrence of the external cause
CPT/HCPCS: 72125; 70450; 99285; 96374; J2060

== ENCOUNTER 2019-04-18 18:00 | Emergency (ER) | payer OTHER ==
[2019-04-18 18:21] VITALS: TEMP 98
[2019-04-18] MEDS ORDERED: SODIUM CHLORIDE 0.9% 1,000 ML IV STA (18:28)
[2019-04-18 18:57] LABS: Basophils # (A) 0.1 k/uL (0-0.2); Basophils % (A) 1 %; Eosinophils # (A) 0.2 k/uL (0-0.7); Eosinophils % (A) 2 %; HCT 44.6 % (39.0-53.0); HGB 15.3 gm/dL (13.0-17.5); Lymphocytes # (A) 2.3 k/uL (1.0-4.8); Lymphocytes % (A) 27 %; MCH 30.6 pg (25.0-35.0); MCHC 34.3 g/dL (31.0-37.0); MCV 89.2 fL (80.0-100.0); Mean Platelet Volume 6.1; Monocytes # (A) 0.4 k/uL (0-1.0); Monocytes % (A) 5 %; Neutrophils # (A) 5.4 k/uL (1.3-7.7); Neutrophils % (A) 63 %; Platelet Count 213 k/uL (150-450); RBC 4.99 m/uL (4.30-5.90); RDW 12.8 % (11.5-15.5); WBC 8.5 k/uL (3.8-10.6)
--- NOTE | 2019-04-18 18:58 | XR ---
EXAMINATION TYPE: XR chest 2V DATE OF EXAM: 04/18/2019 COMPARISON: 12/06/2017 HISTORY: Seizure TECHNIQUE: Frontal and lateral views of the chest are obtained. FINDINGS: Heart and mediastinum are normal. Lungs are clear. Diaphragm is normal. Bony thorax appear s normal. IMPRESSION: Normal chest. No change.
--- NOTE | 2019-04-18 18:59 | ED ---
Recheck HPI - General Chief Complaint: Recheck/Abnormal Lab/Rx Stated Complaint: EVA, Seizure Time Seen by Provider: 04/18/19 18:20 Source: patient Mode of arrival: wheelchair Limitations: no limitations - History of Present Illness Initial Comments: 34-year-old male patient presents to emergency department for evaluation of shortness of breath. Patient states he has been having symptoms since last evening. States that he feels like his chest is heavy and he cannot take a full breath. States he has been coughing. He reports yellow sputum production. Denies any hemoptysis. Denies fever or chills. Patient states he did take 2 breathing treatments prior to arrival which did not help. Patient states he did have more than one seizure today. He has not been taking any seizure medication due to insurance issues over the last year. Denies any alcohol or drug use. Denies any leg swelling or tenderness. Denies any recent travel. Patient de nies any recent rash, abdominal pain, nausea, vomiting, diarrhea, constipation, back pain, numbness, tingling, dizziness, weakness, hematuria, dysuria, urinary urgency, urinary frequency, headache, visual changes, or any other complaints. - Related Data Home Medications Medication Instructions Recorded Confirmed Albuterol Sulfate [Proair Hfa] 1 - 2 puff INHALATION RT-QID PRN 10/12/17 12/06/17 Cetirizine HCl [Zyrtec] 10 mg PO HS 10/12/17 12/06/17 Divalproex Sodium [Depakote] 500 mg PO BID 10/12/17 12/06/17 Previous Rx's Medication Instructions Recorded Divalproex [Depakote] 500 mg PO BID 10 Days #20 tablet. 07/16/18 Divalproex [Depakote] 500 mg PO BID 15 Days #30 tablet. 08/13/18 Divalproex Sodium [Depakote] 500 mg PO BID #60 tablet. 08/18/18 Divalproex Sodium [Depakote] 500 mg PO BID #60 tablet. 04/18/19 guaiFENesin-DM 600/30MG [Mucinex 1 each PO Q12HR #10 tab.er.12h 04/18/19 Dm] levETIRAcetam [Keppra] 500 mg PO BID #60 tab 04/18/19 predniSONE 50 mg PO DAILY #5 tablet 04/18/19 Allergies Allergy/AdvReac Type Severity Reaction Status Date / Time codeine Allergy Anaphylaxis Verified 08/18/18 17:30 grape Allergy Unknown Verified 08/18/18 17:30 Review of Systems ROS Statement: Those systems with pertinent positive or pertinent negative responses have been documented in the HPI. ROS Other: All systems not noted in ROS Statement are negative. Past Medical History Past Medical History: Asthma, Seizure Disorder Additional Past Medical History / Comment(s): CHRONIC BRONCHITIS History of Any Multi-Drug Resistant Organisms: None Reported Past Surgical History: Adenoidectomy Past Psychological History: Anxiety, Bipolar Smoking Status: Current every day smoker Past Alcohol Use History: Rare Past Drug Use History: Marijuana General Exam Limitations: no limitations General appearance: alert, in no apparent distress, other (Physical well- developed, well-nourished adult male patient in no acute distress. Vital signs upon presentation are temperature 98.2F, pulse 88, respiration 16, blood press ure 136/70, pulse ox 99% on room air.) Eye exam: Present: normal appearance, PERRL, EOMI. Absent: scleral icterus, conjunctival injection, periorbital swelling ENT exam: Present: normal exam, normal oropharynx, mucous membranes moist Respiratory exam: Present: normal lung sounds bilaterally. Absent: respiratory distress, wheezes, rales, rhonchi, stridor Cardiovascular Exam: Present: regular rate, normal rhythm, normal heart sounds. Absent: systolic murmur, diastolic murmur, rubs, gallop, clicks GI/Abdominal exam: Present: soft, normal bowel sounds. Absent: distended, tenderness, guarding, rebound, rigid Neurological exam: Present: alert, oriented X3, CN II-XII intact Psychiatric exam: Present: normal affect, normal mood Skin exam: Present: warm, dry, intact, normal color. Absent: rash Course Vital Signs 04/18/19 04/18/19 18:19 19:23 Temperature 98 F Pulse Rate 88 74 Respiratory 16 20 Rate Blood Pressure 136/70 130/70 O2 Sat by Pulse 99 100 Oximetry Medical Decision Making - Medical Decision Making 34-year-old male patient presents to the emergency department today for evaluation of shortness of breath, cough, and seizures. Physical examination reveals clear equal lung sounds. Patient is to Neck. He does exhibit a productive cough. He is neurologically intact with no focal deficits. Chest x- ray showed no acute cardiopulmonary process. There is no seizure activity in the emergency department. Labs reviewed and were unremarkable. Patient does n ow have insurance, we will give a loading dose of Keppra and refill his seizure medications. He'll also be treated for acute bronchitis with prednisone and Mucinex DM. He does have inhalers at home. He is instructed to follow-up with the primary care physician and neurologist for further evaluation, these have been recommended to him. Return parameters were discussed in detail. He verbalizes understanding and agrees this plan. - Lab Data Result diagrams: 04/18/19 18:46 04/18/19 18:46 Lab Results 04/18/19 04/18/19 04/18/19 Range/Units 18:46 18:46 18:46 WBC 8.5 (3.8-10.6) k/uL RBC 4.99 (4.30-5.90) m/uL Hgb 15.3 (13.0-17.5) gm/dL Hct 44.6 (39.0-53.0) % MCV 89.2 (80.0-100.0) fL MCH 30.6 (25.0-35.0) pg MCHC 34.3 (31.0-37.0) g/dL RDW 12.8 (11.5-15.5) % Plt Count 213 (150-450) k/uL Neutrophils % 63 % Lymphocytes % 27 % Monocytes % 5 % Eosinophils % 2 % Basophils % 1 % Neutrophils # 5.4 (1.3-7.7) k/uL Lymphocytes # 2.3 (1.0-4.8) k/uL Monocytes # 0.4 (0-1.0) k/uL Eosinophils # 0.2 (0-0.7) k/uL Basophils # 0.1 (0-0.2) k/uL PT 9.8 (9.0-12.0) sec INR 0.9 (<1.2) APTT 23.2 (22.0-30.0) sec D-Dimer 0.19 (<0.60) mg/L FEU Sodium 140 (137-145) mmol/L Potassium 3.7 (3.5-5.1) mmol/L Chloride 106 (98-107) mmol/L Carbon Dioxide 23 (22-30) mmol/L Anion Gap 11 mmol/L BUN 12 (9-20) mg/dL Creatinine 0.97 (0.66-1.25) mg/dL Est GFR (CKD-EPI)AfAm >90 (>60 ml/min/1.73 sqM) Est GFR (CKD-EPI)NonAf >90 (>60 ml/min/1.73 sqM) Glucose 129 H (74-99) mg/dL Calcium 9.7 (8.4-10.2) mg/dL Total Bilirubin 0.3 (0.2-1.3) mg/dL AST 25 (17-59) U/L ALT 36 (21-72) U/L Alkaline Phosphatase 45 (38-126) U/L Troponin I (0.000-0.034) ng/mL Total Protein 7.1 (6.3-8.2) g/dL Albumin 4.5 (3.5-5.0) g/dL 04/18/19 Range/Units 18:46 WBC (3.8-10.6) k/uL RBC (4.30-5.90) m/uL Hgb (13.0-17.5) gm/dL Hct (39.0-53.0) % MCV (80.0-100.0) fL MCH (25.0-35.0) pg MCHC (31.0-37.0) g/dL RDW (11.5-15.5) % Plt Count (150-450) k/uL Neutrophils % % Lymphocytes % % Monocytes % % Eosinophils % % Basophils % % Neutrophils # (1.3-7.7) k/uL Lymphocytes # (1.0-4.8) k/uL Monocytes # (0-1.0) k/uL Eosinophils # (0-0.7) k/uL Basophils # (0-0.2) k/uL PT (9.0-12.0) sec INR (<1.2) APTT (22.0-30.0) sec D-Dimer (<0.60) mg/L FEU Sodium (137-145) mmol/L Potassium (3.5-5.1) mmol/L Chloride (98-107) mmol/L Carbon Dioxide (22-30) mmol/L Anion Gap mmol/L BUN (9-20) mg/dL Creatinine (0.66-1.25) mg/dL Est GFR (CKD-EPI)AfAm (>60 ml/min/1.73 sqM) Est GFR (CKD-EPI)NonAf (>60 ml/min/1.73 sqM) Glucose (74-99) mg/dL Calcium (8.4-10.2) mg/dL Total Bilirubin (0.2-1.3) mg/dL AST (17-59) U/L ALT (21-72) U/L Alkaline Phosphatase (38-126) U/L Troponin I <0.012 (0.000-0.034) ng/mL Total Protein (6.3-8.2) g/dL Albumin (3.5-5.0) g/dL - Radiology Data Radiology results: report reviewed, image reviewed Two-view x-ray of the chest is obtained. Report reviewed in its entirety. Impression by Dr. Terrazas shows normal chest with no change. Disposition Clinical Impression: Shortness of breath, Recurrent seizures Disposition: HOME SELF-CARE Condition: Good Instructions (If sedation given, give patient instructions): Acute Bronchitis (ED), Recurrent Seizures in Adults (ED) Additional Instructions: Increase fluids. Complete medications as directed. Follow-up with primary care physician and neurologist for further evaluation and refills on her seizure medications. Return to the emergency department immediately for any new, worsening, or concerning symptoms. Prescriptions: Divalproex Sodium [Depakote] 500 mg PO BID #60 tablet. levETIRAcetam [Keppra] 500 mg PO BID #60 tab guaiFENesin-DM 600/30MG [Mucinex Dm] 1 each PO Q12HR #10 tab.er.12h predniSONE 50 mg PO DAILY #5 tablet Is patient prescribed a controlled substance at d/c from ED?: No Referrals: Jose Enrique Marie MD [REFERRING] - 1-2 days Aylin Joseph MD [Medical Doctor] - 1-2 days Time of Disposition: 19:57
[2019-04-18 19:13] LABS: D-Dimer 0.19 mg/L FEU (<0.60); INR 0.9 (<1.2); Partial Thromboplastin Time 23.2 sec (22.0-30.0); Prothrombin Time 9.8 sec (9.0-12.0)
[2019-04-18 19:15] LABS: ALT 36 U/L (21-72); AST 25 U/L (17-59); African American GFR (CKD) >90 (>60 ml/min/1.73 sqM); Albumin 4.5 g/dL (3.5-5.0); Alkaline Phosphatase 45 U/L (38-126); Anion Gap 11 mmol/L; Blood Urea Nitrogen 12 mg/dL (9-20); Calcium 9.7 mg/dL (8.4-10.2); Carbon Dioxide 23 mmol/L (22-30); Chloride 106 mmol/L (98-107); Glucose 129 mg/dL (74-99); Potassium 3.7 mmol/L (3.5-5.1); Sodium 140 mmol/L (137-145); Total Bilirubin 0.3 mg/dL (0.2-1.3); Total Protein 7.1 g/dL (6.3-8.2)
[2019-04-18] MEDS ORDERED: guaiFENesin-DM 600/30MG 1 EACH TAB.ER.12H PO STA (19:53)
[2019-04-18] MEDS ORDERED: levETIRAcetam IV 1,000 MG in SALINE 1 100ML.BAG IVPB STA (19:53)
[2019-04-18] MEDS ORDERED: predniSONE 50 MG TAB PO STA (19:53)
[2019-04-18 20:39] VITALS: BP 128/61; PULSE 70; RESP 16
== END 2019-04-18 20:39 | disposition home or self-care (01) ==
LOC: EC 18:00
DX: G40.909 Epilepsy, unspecified, not intractable, without status epilepticus (principal); J20.9 Acute bronchitis, unspecified; Z76.0 Encounter for issue of repeat prescription; J45.909 Unspecified asthma, uncomplicated; F31.9 Bipolar disorder, unspecified; F17.200 Nicotine dependence, unspecified, uncomplicated; Z88.5 Allergy status to narcotic agent; Z91.018 Allergy to other foods; Z79.899 Other long term (current) drug therapy; Z90.89 Acquired absence of other organs
CPT/HCPCS: 36415; 85379; 80053; 84484; 85025; 85610; 85730; 71046; 99285; 96365; 96361; J1953; J7512

== ENCOUNTER → 2019-07-06 | Outpatient (CLI) | payer OTHER | END | disposition home or self-care (01) | LOC: LABWHC1 09:17 | PROVIDERS: ATTEND Psychiatry & Neurology Pain Medicine | DX: G40.909 Epilepsy, unspecified, not intractable, without status epilepticus (principal); Z51.81 Encounter for therapeutic drug level monitoring | CPT/HCPCS: 36415; 80164; 80177 ==

== ENCOUNTER 2020-02-05 10:41 | Emergency (ER) | payer OTHER ==
[2020-02-05 10:47] VITALS: TEMP 98.3
[2020-02-05] MEDS ORDERED: diphenhydrAMINE 50 MG/ML 1 ML VIAL IVP STA (11:19)
[2020-02-05] MEDS ORDERED: METOCLOPRAMIDE 5 MG/ML 2 ML VIAL IVP STA (11:19)
[2020-02-05] MEDS ORDERED: SODIUM CHLORIDE 0.9% 1,000 ML IV ONE (11:20)
--- NOTE | 2020-02-05 11:31 | ED ---
General Adult HPI - General Chief complaint: Headache Stated complaint: headache Time Seen by Provider: 02/05/20 10:49 Source: patient, RN notes reviewed, old records reviewed Mode of arrival: ambulatory Limitations: no limitations - History of Present Illness Initial comments: 34-year-old male patient proceeded chief complaint headache. Patient reports t hat he woke up with a bitemporal headache. Pt also reports that he has been having sinus congestion and pressure. He reports that it is very severe and he has had nausea without emesis. Denies any visual changes or sensitivity to light. Denies a loss of consciousness. Patient also reports that for the last 6 months or so he has been having various symptoms. She reports that he has a waxing and waning cough. Does report that he is a smoker and smokes 2 packs per day. Was then last 2 weeks the cough has been worse and it has been productive in nature. He denies any chest pain or shortness of breath. Patient also reports that he has been having waxing and waning fevers and chills over this timeframe. Also reports that he has been having recurrent nausea and vomiting in the morning. Denies any current abdominal pain. Patient reports that he was seen for seizures multiple times in last few years. 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 He is not currently on any antiepileptics. Denies any other complaints at this time. Systemic: Pt denies fatigue, rash. Pt denies weakness, night sweats, weight loss. Neuro: Pt denies visual disturbances, syncope or pre-syncope. HEENT: Pt denies ocular discharge or irritation, otalgia, rhinorrhea, pharyngitis or notable lymphadenopathy. Cardiopulmonary: Pt denies chest pain, SOB, heart palpitations, dyspnea on exertion. Abdominal/GI: Pt denies abdominal pain, n/v/d. : Pt denies dysuria, burning w/ urination, frequency/urgency. Denies new onset urinary or bowel incontinence. MSK: Pt denies myalgia, loss of strength or function in extremities. Neuro: Pt denies new onset weakness, paresthesias. - Related Data Home Medications Medication Instructions Recorded Confirmed Albuterol Sulfate [Proair Hfa] 1 - 2 puff INHALATION RT-QID PRN 02/05/20 02/05/20 Ibuprofen [Motrin] 800 mg PO Q8H PRN 02/05/20 02/05/20 Ipratropium [place] [Atrovent Hfa] 2 puff INHALATION RT-QID PRN 02/05/20 02/05/20 Previous Rx's Medication Instructions Recorded Amoxicillin/Potassium Clav 1 each PO Q12HR 10 Days #20 tab 02/05/20 [Augmentin 875-125 Tablet] levETIRAcetam [Keppra] 500 mg PO BID 14 Days #28 tab 02/05/20 Allergies Allergy/AdvReac Type Severity Reaction Status Date / Time codeine Allergy Anaphylaxis Verified 02/05/20 11:00 grape Allergy Unknown Verified 02/05/20 11:00 Review of Systems ROS Statement: Those systems with pertinent positive or pertinent negative responses have been documented in the HPI. ROS Other: All systems not noted in ROS Statement are negative. Past Medical History Past Medical History: Asthma, Seizure Disorder Additional Past Medical History / Comment(s): CHRONIC BRONCHITIS History of Any Multi-Drug Resistant Organisms: None Reported Past Surgical History: Adenoidectomy Past Psychological History: Anxiety, Bipolar Smoking Status: Current every day smoker Past Alcohol Use History: Rare Past Drug Use History: Marijuana General Exam - General Exam Comments Initial Comments: Constitutional: NAD, AOX3, Pt has pleasant affect. HEENT: NC/AT, trachea midline, neck supple, no lymphadenopathy. External ears a ppear normal, without discharge. Mucous membranes moist. Eyes PERRLA, EOM intact. There is no scleral icterus. No pallor noted. Cardiopulmonary: RRR, no murmurs, rubs or gallops, no JVD noted. Lungs CTAB in anterior and posterior barker. No peripheral edema. Abdominal exam: Abdomen soft and non-distended. Abdomen non-tender to palpation in all 4 quadrants. Bowel sounds active in LLQ. No hepatosplenomegaly. No ecchymosis Neuro: CN II-XII intact. No nuchal rigidity. No raccon eyes, no cuellar sign, no hemotympanum. No cervical spinal tenderness. NIH 0. MSK: No posterior calf tenderness bilaterally, homans sign negative bilaterally. Posterior tibialis and radial pulse +2 bilaterally. Sensation intact in upper and lower extremities. Full active ROM in upper and lower extremities, 5/5 stregnth. Limitations: no limitations Course Vital Signs 02/05/20 02/05/20 10:43 12:46 Temperature 98.3 F Pulse Rate 80 72 Respiratory 18 16 Rate Blood Pressure 129/84 108/74 O2 Sat by Pulse 97 97 Oximetry Medical Decision Making - Medical Decision Making 34-year-old male patient presents ED complaining of bitemporal headache. Patient vital signs are stable, afebrile. Physical exam demonstrates acute pathology neurologic exam was intact. Shared decision making patient wishes to have a CT performed of his brain. While waiting for CAT scan patient had a witnessed 3 minute tonic-clonic seizure per nursing staff. Upon my reevaluation patient seizure had stopped spontaneously. Laboratory investigations were obtained and are non-impressive. CT brain without contrast does display sinus disease. Chest x-ray did not display acute process. Patient headache resolved without intervention. I recommended patient to stay in hospital. Patient adamantly denied. He displayed adequate decision-making skills. He is alert and oriented 3. I explained my concerns for possible or significant disablement. He verbalized understanding states that he has friends who will watch over him. Patient will be discharged with his previous dose of Keppra which was 500 mg twice a day will follow-up with his primary care provider and his neurologist. Patient will also be prescribed Augmentin for sinusitis. Case discussed in depth with Dr. Moore. - Lab Data Result diagrams: 02/05/20 11:42 02/05/20 11:42 Lab Results 02/05/20 02/05/20 Range/Units 11:42 11:42 WBC 7.5 (3.8-10.6) k/uL RBC 4.99 (4.30-5.90) m/uL Hgb 14.8 (13.0-17.5) gm/dL Hct 45.0 (39.0-53.0) % MCV 90.1 (80.0-100.0) fL MCH 29.6 (25.0-35.0) pg MCHC 32.8 (31.0-37.0) g/dL RDW 12.8 (11.5-15.5) % Plt Count 220 (150-450) k/uL Neutrophils % 71 % Lymphocytes % 15 % Monocytes % 7 % Eosinophils % 5 % Basophils % 1 % Neutrophils # 5.3 (1.3-7.7) k/uL Lymphocytes # 1.1 (1.0-4.8) k/uL Monocytes # 0.5 (0-1.0) k/uL Eosinophils # 0.4 (0-0.7) k/uL Basophils # 0.1 (0-0.2) k/uL Sodium 136 L (137-145) mmol/L Potassium 3.9 (3.5-5.1) mmol/L Chloride 109 H (98-107) mmol/L Carbon Dioxide 22 (22-30) mmol/L Anion Gap 5 mmol/L BUN 9 (9-20) mg/dL Creatinine 0.81 (0.66-1.25) mg/dL Est GFR (CKD-EPI)AfAm >90 (>60 ml/min/1.73 sqM) Est GFR (CKD-EPI)NonAf >90 (>60 ml/min/1.73 sqM) Glucose 118 H (74-99) mg/dL Calcium 8.7 (8.4-10.2) mg/dL Total Bilirubin 0.3 (0.2-1.3) mg/dL AST 23 (17-59) U/L ALT 21 (4-49) U/L Alkaline Phosphatase 72 (38-126) U/L Total Protein 5.9 L (6.3-8.2) g/dL Albumin 3.7 (3.5-5.0) g/dL Disposition Clinical Impression: Seizure, Sinusitis, Acute headache Disposition: Left Against Medical Advice Condition: Undetermined Additional Instructions: Follow-up with neurologist and primary care provider tomorrow. NO DRIVING FOR 6 MONTHS. Take antibiotics as directed. Take antiseizure medication as directed. Return to ER if condition worsens. Prescriptions: Amoxicillin/Potassium Clav [Augmentin 875-125 Tablet] 1 each PO Q12HR 10 Days #20 tab levETIRAcetam [Keppra] 500 mg PO BID 14 Days #28 tab Is patient prescribed a controlled substance at d/c from ED?: No Referrals: None,Stated [Primary Care Provider] - 1-2 days Srinivasan Escudero [STAFF PHYSICIAN] - 1-2 days Aylin Joseph MD [Medical Doctor] - 1-2 days
[2020-02-05] MEDS ORDERED: LORazepam 2 MG/ML INJ IV STA (11:41)
[2020-02-05 11:54] LABS: Basophils # (A) 0.1 k/uL (0-0.2); Basophils % (A) 1 %; Eosinophils # (A) 0.4 k/uL (0-0.7); Eosinophils % (A) 5 %; HGB 14.8 gm/dL (13.0-17.5); Lymphocytes # (A) 1.1 k/uL (1.0-4.8); Lymphocytes % (A) 15 %; MCH 29.6 pg (25.0-35.0); MCHC 32.8 g/dL (31.0-37.0); MCV 90.1 fL (80.0-100.0); Mean Platelet Volume 7.3; Monocytes # (A) 0.5 k/uL (0-1.0); Monocytes % (A) 7 %; Neutrophils # (A) 5.3 k/uL (1.3-7.7); Neutrophils % (A) 71 %; Platelet Count 220 k/uL (150-450); RBC 4.99 m/uL (4.30-5.90); RDW 12.8 % (11.5-15.5); WBC 7.5 k/uL (3.8-10.6)
[2020-02-05 12:04] LABS: ALT 21 U/L (4-49); AST 23 U/L (17-59); African American GFR (CKD) >90 (>60 ml/min/1.73 sqM); Albumin 3.7 g/dL (3.5-5.0); Alkaline Phosphatase 72 U/L (38-126); Anion Gap 5 mmol/L; Blood Urea Nitrogen 9 mg/dL (9-20); Calcium 8.7 mg/dL (8.4-10.2); Carbon Dioxide 22 mmol/L (22-30); Chloride 109 mmol/L (98-107); Glucose 118 mg/dL (74-99); Non-African American GFR(CKD) >90 (>60 ml/min/1.73 sqM); Potassium 3.9 mmol/L (3.5-5.1); Sodium 136 mmol/L (137-145); Total Bilirubin 0.3 mg/dL (0.2-1.3); Total Protein 5.9 g/dL (6.3-8.2)
--- NOTE | 2020-02-05 12:10 | XR ---
EXAMINATION TYPE: XR chest 2V DATE OF EXAM: 02/05/2020 COMPARISON: 04/28/2019 INDICATION: Headache dizziness TECHNIQUE: Frontal and lateral views of the chest are obtained. FINDINGS: The heart size is normal. The pulmonary vasculature is normal. The lungs are clear. IMPRESSION: 1. No acute pulmonary process.
--- NOTE | 2020-02-05 12:10 | CT ---
EXAMINATION TYPE: CT brain wo con DATE OF EXAM: 02/05/2020 HISTORY: headache CT DLP: 1099.4 mGycm. Automated Exposure Control for Dose Reduction was Utilized. TECHNIQUE: CT scan of the head is performed without contrast. COMPARISON: CT brain 04/30/2019 FINDINGS: There is no acute intracranial hemorrhage, midline shift, or mass effect identified. Brain parenchyma appears normal. The ventricles, sulci, and cisterns are normal in size and configuration. No extra-axial fluid collection. Bones and extracranial soft tissues are intact. The globes are gross ly symmetric. Mastoid air cells are clear. There is mucosal thickening of the left maxillary sinus, e thmoid air cells, and right sphenoid sinus. IMPRESSION: 1. No acute intracranial hemorrhage, midline shift, or mass effect. 2. Paranasal sinus disease as above.
[2020-02-05] MEDS ORDERED: levETIRAcetam IV 1,000 MG in SALINE 1 100ML.BAG IVPB STA (13:03)
[2020-02-05] MEDS ORDERED: levETIRAcetam 500 MG TAB PO STA (13:36)
[2020-02-05] MEDS ORDERED: AMOXIC-POT CLAV 875MG STARTER PACK 2 TAB BTL PO STA (14:17)
[2020-02-05 14:44] VITALS: BP 119/94; PULSE 73; RESP 18
== END 2020-02-05 14:44 | disposition left against medical advice (07) ==
LOC: EC 10:41
DX: J01.90 Acute sinusitis, unspecified (principal); G40.909 Epilepsy, unspecified, not intractable, without status epilepticus; Z53.29 Procedure and treatment not carried out because of patient's decision for other reasons; J45.909 Unspecified asthma, uncomplicated; F17.210 Nicotine dependence, cigarettes, uncomplicated; Z88.5 Allergy status to narcotic agent; Z91.018 Allergy to other foods
CPT/HCPCS: 36415; 70450; 71046; 80053; 85025; 96374; 99285

== ENCOUNTER 2020-06-04 15:02 | Emergency (ER) | payer OTHER ==
[2020-06-04] MEDS ORDERED: LIDOCAINE 5% PATCH TOPICAL STA (15:39)
[2020-06-04] MEDS ORDERED: KETOROLAC 15 MG/ML 1 ML VIAL IM STA (15:39)
--- NOTE | 2020-06-04 15:47 | ED ---
General Adult HPI - General Chief complaint: Fall Stated complaint: Rib pain Time Seen by Provider: 06/04/20 15:27 Source: patient, RN notes reviewed Mode of arrival: ambulatory Limitations: no limitations - History of Present Illness Initial comments: 35-year-old male presents to the emergency department for a chief complaint of rib pain. Patient reports he has pain in the anterolateral aspect of the right ribs around rib 5. Patient reports that 3 days ago he had a seizure and fell onto his right side has had pain ever since. Patient has a history of seizures, he does currently have a neurologist. Patient reports he is following up for this however wanted to be evaluated for the rib pain today. States that it hurts when he coughs and presses on the area. Hurts with movement. Patient thinks he broke a rib. Denies any other injuries.Patient has no other complaints at this time including shortness of breath, chest pain, abdominal pain, nausea or vomiting, headache, or visual changes. - Related Data Home Medications Medication Instructions Recorded Confirmed Albuterol Sulfate [Proair Hfa] 1 - 2 puff INHALATION RT-QID PRN 02/05/20 02/05/20 Ibuprofen [Motrin] 800 mg PO Q8H PRN 02/05/20 02/05/20 Ipratropium [place] [Atrovent Hfa] 2 puff INHALATION RT-QID PRN 02/05/20 02/05/20 Previous Rx's Medication Instructions Recorded Amoxicillin/Potassium Clav 1 each PO Q12HR 10 Days #20 tab 02/05/20 [Augmentin 875-125 Tablet] levETIRAcetam [Keppra] 500 mg PO BID 14 Days #28 tab 02/05/20 Allergies Allergy/AdvReac Type Severity Reaction Status Date / Time codeine Allergy Anaphylaxis Verified 06/04/20 15:17 grape Allergy Unknown Verified 06/04/20 15:17 Review of Systems ROS Statement: Those systems with pertinent positive or pertinent negative responses have been documented in the HPI. ROS Other: All systems not noted in ROS Statement are negative. Past Medical History Past Medical History: Asthma, Seizure Disorder Additional Past Medical History / Comment(s): CHRONIC BRONCHITIS History of Any Multi-Drug Resistant Organisms: None Reported Past Surgical History: Adenoidectomy Past Psychological History: Anxiety, Bipolar Smoking Status: Current every day smoker Past Alcohol Use History: Rare Past Drug Use History: Marijuana General Exam Limitations: no limitations General appearance: alert, in no apparent distress Head exam: Present: atraumatic Eye exam: Present: normal appearance, PERRL, EOMI. Absent: scleral icterus, conjunctival injection, periorbital swelling ENT exam: Present: normal exam, mucous membranes moist Neck exam: Present: normal inspection, full ROM. Absent: tenderness, meningismus, lymphadenopathy Respiratory exam: Present: normal lung sounds bilaterally, chest wall tenderness (Patient has a right sided anterior lateral chest wall tenderness around rib 5. No step-off, no contusion.). Absent: respiratory distress, wheezes, rales, rhonchi, stridor Cardiovascular Exam: Present: regular rate, normal rhythm, normal heart sounds. Absent: systolic murmur, diastolic murmur, rubs, gallop, clicks GI/Abdominal exam: Present: soft, normal bowel sounds. Absent: distended, tenderness, guarding, rebound, rigid Neurological exam: Present: alert Course Vital Signs 06/04/20 15:15 Temperature 98.2 F Pulse Rate 93 Respiratory 20 Rate Blood Pressure 150/69 O2 Sat by Pulse 99 Oximetry Medical Decision Making - Medical Decision Making Vitals are stable. X-ray of the chest and ribs shows no acute cardiopulmonary process or acute displaced right-sided rib fracture. Symptoms are consistent with contusion of ribs given pain is reproducible with tenderness to palpation and movement. At this time patient will follow up with his neurologist for his chronic seizure disorder. He will return here for any worsening symptoms. Disposition Clinical Impression: Rib pain on right side Disposition: HOME SELF-CARE Condition: Good Instructions (If sedation given, give patient instructions): Rib Contusion (ED) Additional Instructions: Please take Motrin and Tylenol for pain. Follow-up with your doctor in one to 2 days. Return to the emergency room for any worsening symptoms. Is patient prescribed a controlled substance at d/c from ED?: No Referrals: Srinivasan Escudero [STAFF PHYSICIAN] - 1-2 days Time of Disposition: 16:34
--- NOTE | 2020-06-04 16:12 | XR ---
EXAMINATION TYPE: XR ribs RT w pa chest xray DATE OF EXAM: 06/04/2020 CLINICAL HISTORY: Fall injury with chest and right-sided rib pain. TECHNIQUE: Single frontal view of the chest is obtained. A frontal and oblique images of right-sided ribs. COMPARISON: Chest x-rays February 05, 2020 FINDINGS: There is no focal air space opacity, pleural effusion, or pneumothorax seen bilaterally. The cardiac silhouette size is within normal limits. The osseous structures are intact. Dedicated images of right-sided ribs show no acute displaced fracture. Overlying soft tissue is unrem arkable. IMPRESSION: 1. No acute cardiopulmonary process. 2. No acute displaced right-sided rib fracture is seen.
[2020-06-04 17:09] VITALS: BP 136/78; PULSE 77; RESP 18; TEMP 98.4
== END 2020-06-04 17:09 | disposition home or self-care (01) ==
LOC: EC 15:02
DX: R07.81 Pleurodynia (principal); J45.909 Unspecified asthma, uncomplicated; F17.200 Nicotine dependence, unspecified, uncomplicated; Z88.5 Allergy status to narcotic agent; Z91.018 Allergy to other foods; W19.XXXA Unspecified fall, initial encounter
CPT/HCPCS: 71101; 99283; 96372; J1885

== ENCOUNTER → 2020-08-03 | Outpatient (CLI) | payer OTHER ==
[2020-08-03 16:57] LABS: Hepatitis A Antibody IgM Non-Reactive (Non-Reactive); Hepatitis B Core IgM Non-Reactive (Non-Reactive); Hepatitis B Surface Antigen Non-Reactive (Non-Reactive); Hepatitis C IgG Antibody Non-Reactive (Non-Reactive)
== END | disposition home or self-care (01) ==
LOC: LABWHC1 09:24
PROVIDERS: ATTEND Nurse Practitioner Psychiatric/Mental Health
DX: F33.2 Major depressive disorder, recurrent severe without psychotic features (principal)
CPT/HCPCS: 36415; 80074; 80164

== ENCOUNTER → 2020-09-29 | Outpatient (CLI) | payer OTHER | END | disposition home or self-care (01) | LOC: LABWHC1 07-27 10:37 | PROVIDERS: ATTEND Nurse Practitioner Psychiatric/Mental Health | DX: F33.2 Major depressive disorder, recurrent severe without psychotic features (principal) | CPT/HCPCS: 36415; 80164 ==

== ENCOUNTER 2020-11-28 12:59 | Emergency (ER) | payer OTHER ==
[2020-11-28] MEDS ORDERED: SODIUM CHLORIDE 0.9% 1,000 ML IV STA (13:22)
[2020-11-28] MEDS ORDERED: methylPREDNISolone SOD SUCCI 125 MG/2 ML VIAL IV STA (13:22)
[2020-11-28 13:42] LABS: Basophils # (A) 0.1 k/uL (0-0.2); Basophils % (A) 1 %; Eosinophils # (A) 0.4 k/uL (0-0.7); Eosinophils % (A) 5 %; HCT 45.3 % (39.0-53.0); HGB 15.9 gm/dL (13.0-17.5); Lymphocytes # (A) 2.3 k/uL (1.0-4.8); Lymphocytes % (A) 30 %; MCH 31.3 pg (25.0-35.0); MCHC 35.2 g/dL (31.0-37.0); MCV 88.9 fL (80.0-100.0); Mean Platelet Volume 7.3; Monocytes # (A) 0.4 k/uL (0-1.0); Monocytes % (A) 5 %; Neutrophils # (A) 4.3 k/uL (1.3-7.7); Neutrophils % (A) 57 %; Platelet Count 242 k/uL (150-450); RDW 12.6 % (11.5-15.5); WBC 7.4 k/uL (3.8-10.6)
[2020-11-28 13:55] LABS: ALT 15 U/L (4-49); AST 20 U/L (17-59); African American GFR (CKD) >90 (>60 ml/min/1.73 sqM); Albumin 4.2 g/dL (3.5-5.0); Alkaline Phosphatase 58 U/L (38-126); Anion Gap 9 mmol/L; Blood Urea Nitrogen 5 mg/dL (9-20); Calcium 9.2 mg/dL (8.4-10.2); Carbon Dioxide 22 mmol/L (22-30); Chloride 108 mmol/L (98-107); Glucose 89 mg/dL (74-99); Non-African American GFR(CKD) >90 (>60 ml/min/1.73 sqM); Potassium 4.5 mmol/L (3.5-5.1); Sodium 139 mmol/L (137-145); Total Bilirubin 0.3 mg/dL (0.2-1.3); Total Protein 6.6 g/dL (6.3-8.2)
--- NOTE | 2020-11-28 14:00 | XR ---
EXAMINATION TYPE: XR chest 2V DATE OF EXAM: 11/28/2020 COMPARISON: Chest x-ray June 04, 2020 HISTORY: Weakness and cough. TECHNIQUE: Frontal and lateral views of the chest are obtained. FINDINGS: There is no new suspicious focal air space opacity, pleural effusion, or pneumothorax seen . The cardiac silhouette size remains within normal limits. The osseous structures are intact. Ove rlying EKG leads. IMPRESSION: No acute cardiopulmonary process. No significant change from prior.
--- NOTE | 2020-11-28 14:20 | ED ---
General Adult HPI - General Chief complaint: Shortness of Breath Stated complaint: sob/dizzy/feeling like passing out Time Seen by Provider: 11/28/20 13:06 Source: patient Mode of arrival: wheelchair Limitations: no limitations - History of Present Illness Initial comments: Patient is a 35-year-old male presenting to the emergency Department with compla ints of a cough, shortness of breath and some dizziness that started this morning. Patient states he is a smoker, normally has a smoker's cough but felt like it was increasing when he woke up this morning. He states he has been coughing a lot, dry cough no production. He states he was doing some dishes and started having a coughing fit when he "passed out." He states he did not hit his head when he fell down onto the ground, he does not think he was out for more than a second. He denies any chest pain, he does feel short of breath when he gets into coughing fits. He states he does have history of bronchitis. He denies any fevers, no nausea or vomiting but he states his appetite is low today. He has no further complaints at this time. Upon arrival to the ER, his vital signs are stable. - Related Data Home Medications Medication Instructions Recorded Confirmed Albuterol Sulfate [Proair Hfa] 1 - 2 puff INHALATION RT-QID PRN 02/05/20 02/05/20 Ibuprofen [Motrin] 800 mg PO Q8H PRN 02/05/20 02/05/20 Ipratropium [place] [Atrovent Hfa] 2 puff INHALATION RT-QID PRN 02/05/20 02/05/20 Previous Rx's Medication Instructions Recorded Amoxicillin/Potassium Clav 1 each PO Q12HR 10 Days #20 tab 02/05/20 [Augmentin 875-125 Tablet] levETIRAcetam [Keppra] 500 mg PO BID 14 Days #28 tab 02/05/20 predniSONE 50 mg PO DAILY #5 tab 11/28/20 Allergies Allergy/AdvReac Type Severity Reaction Status Date / Time codeine Allergy Anaphylaxis Verified 11/28/20 13:03 grape Allergy Unknown Verified 11/28/20 13:03 Review of Systems ROS Statement: Those systems with pertinent positive or pertinent negative responses have been documented in the HPI. ROS Other: All systems not noted in ROS Statement are negative. Past Medical History Past Medical History: Asthma, Seizure Disorder Additional Past Medical History / Comment(s): CHRONIC BRONCHITIS History of Any Multi-Drug Resistant Organisms: None Reported Past Surgical History: Adenoidectomy Past Psychological History: Anxiety, Bipolar Smoking Status: Current every day smoker Past Alcohol Use History: Rare Past Drug Use History: Marijuana General Exam - General Exam Comments Initial Comments: GENERAL: Patient is well-developed and well-nourished. Patient is nontoxic and in no acute distress. HEAD: Atraumatic, normocephalic. EYES: Pupils equal round and reactive to light, extraocular movements intact, sclera anicteric, conjunctiva are normal. Eyelids were unremarkable. ENT: TMs normal, nares patent, oropharynx clear without exudates. Moist mucous membranes. NECK: Normal range of motion, supple without lymphadenopathy or JVD. LUNGS: Unlabored respirations. Breath sounds clear to auscultation bilaterally and equal. No wheezes rales or rhonchi. HEART: Regular rate and rhythm without murmurs, rubs or gallops. ABDOMEN: Soft, nontender, normoactive bowel sounds. No guarding, no rebound. No masses appreciated. : Deferred MUSCULOSKELETAL: Normal extremities with adequate strength and normal range of motion, no pitting or edema. No clubbing or cyanosis. NEUROLOGICAL: Patient is alert and oriented x 3. Motor and sensory are also intact. Cranial nerves II through XII grossly intact. Symmetrical smile. Normal speech, normal gait. PSYCH: Normal mood, normal affect. SKIN: Warm, Dry, normal turgor, no rashes or lesions noted. Limitations: no limitations Course Vital Signs 11/28/20 13:00 Pulse Rate 87 Respiratory 20 Rate Blood Pressure 134/86 O2 Sat by Pulse 99 Oximetry EKG Findings - EKG Comments: EKG Findings:: Normal sinus rhythm, normal ECG, no signs of acute process. Ventricular rate 85, MI interval 132, QT 344. Medical Decision Making - Medical Decision Making Patient is a 35-year-old male here with complaints of a cough, lightheadedness that started this morning. He does have a history of a "smoker's cough", bronchitis. His vitals are stable, afebrile. Chest x-ray shows no acute process, EKG is normal. I did do basic labs on him secondary to his dizziness, these are all unremarkable. Patient was given some fluids and a dose of steroids today. I discussed with patient and his symptoms are most likely viral in nature versus bronchitis. I'll continue him on steroids as well as albuterol inhaler, which he has at home. He can f/u with his pcp. Patient is stable for discharge. Patient is in agreement with this plan of care. Return parameters were discussed with the patient and they verbalized understanding. Case discussed with Dr. Ying. - Lab Data Result diagrams: 11/28/20 13:31 11/28/20 13:31 Lab Results 11/28/20 11/28/20 11/28/20 Range/Units 13:31 13:31 13:31 WBC 7.4 (3.8-10.6) k/uL RBC 5.10 (4.30-5.90) m/uL Hgb 15.9 (13.0-17.5) gm/dL Hct 45.3 (39.0-53.0) % MCV 88.9 (80.0-100.0) fL MCH 31.3 (25.0-35.0) pg MCHC 35.2 (31.0-37.0) g/dL RDW 12.6 (11.5-15.5) % Plt Count 242 (150-450) k/uL MPV 7.3 Neutrophils % 57 % Lymphocytes % 30 % Monocytes % 5 % Eosinophils % 5 % Basophils % 1 % Neutrophils # 4.3 (1.3-7.7) k/uL Lymphocytes # 2.3 (1.0-4.8) k/uL Monocytes # 0.4 (0-1.0) k/uL Eosinophils # 0.4 (0-0.7) k/uL Basophils # 0.1 (0-0.2) k/uL Sodium 139 (137-145) mmol/L Potassium 4.5 (3.5-5.1) mmol/L Chloride 108 H (98-107) mmol/L Carbon Dioxide 22 (22-30) mmol/L Anion Gap 9 mmol/L BUN 5 L (9-20) mg/dL Creatinine 0.85 (0.66-1.25) mg/dL Est GFR (CKD-EPI)AfAm >90 (>60 ml/min/1.73 sqM) Est GFR (CKD-EPI)NonAf >90 (>60 ml/min/1.73 sqM) Glucose 89 (74-99) mg/dL Calcium 9.2 (8.4-10.2) mg/dL Total Bilirubin 0.3 (0.2-1.3) mg/dL AST 20 (17-59) U/L ALT 15 (4-49) U/L Alkaline Phosphatase 58 (38-126) U/L Troponin I <0.012 (0.000-0.034) ng/mL Total Protein 6.6 (6.3-8.2) g/dL Albumin 4.2 (3.5-5.0) g/dL Disposition Clinical Impression: Upper respiratory infection, viral Disposition: HOME SELF-CARE Condition: Stable Instructions (If sedation given, give patient instructions): Upper Respiratory Infection (ED) Additional Instructions: Please return to the Emergency Department if symptoms worsen or any other concerns. Continue with prescribed steroids starting tomorrow. Use albuterol inhaler as needed for shortness of breath. Take [id number] cough syrup. Take Tylenol Motrin for any discomfort. Follow up with your PCP. Prescriptions: predniSONE 50 mg PO DAILY #5 tab Is patient prescribed a controlled substance at d/c from ED?: No Referrals: None,Stated [Primary Care Provider] - 1-2 days Beba Zuniga MD [STAFF PHYSICIAN] - 1-2 days Time of Disposition: 14:27
[2020-11-28 14:36] VITALS: RESP 18
[2020-11-28 14:37] VITALS: BP 122/79; PULSE 77
== END 2020-11-28 14:40 | disposition home or self-care (01) ==
LOC: EC 12:59
DX: J06.9 Acute upper respiratory infection, unspecified (principal); R06.02 Shortness of breath; R42 Dizziness and giddiness; R55 Syncope and collapse; B97.89 Other viral agents as the cause of diseases classified elsewhere; J45.909 Unspecified asthma, uncomplicated; F31.9 Bipolar disorder, unspecified; F12.90 Cannabis use, unspecified, uncomplicated; G40.909 Epilepsy, unspecified, not intractable, without status epilepticus; F17.200 Nicotine dependence, unspecified, uncomplicated; Z79.1 Long term (current) use of non-steroidal anti-inflammatories (NSAID); Z79.52 Long term (current) use of systemic steroids
CPT/HCPCS: 36415; 93005; 80053; 84484; 85025; 71046; 99285; 96374; 96361; J2930

== ENCOUNTER 2021-08-03 13:22 | Emergency (ER) | payer OTHER ==
[2021-08-03 14:04] VITALS: BP 134/82; PULSE 105; RESP 20; TEMP 99.6
[2021-08-03] MEDS ORDERED: ACETAMINOPHEN TAB 325 MG TAB PO STA (14:45)
--- NOTE | 2021-08-03 14:48 | ED ---
Headache HPI - General Chief Complaint: Headache Stated Complaint: Headache,Weakness Time Seen by Provider: 08/03/21 14:36 Mode of arrival: ambulatory Limitations: no limitations - History of Present Illness Initial Comments: Patient is a 36-year-old male with a past medical history of asthma and seizures who presents with headache since 7 AM this morning. Patient reports he woke up with the bilateral, throbbing headache, 10/10 severity. Patient reports associated runny nose, sore throat, cough, and chills. Patient denies fever, chest pain, shortness of breath, abdominal pain, nausea, vomiting, diarrhea. Patient reports he was exposed to COVID-19 in the last 2 weeks by his brother and his brother's girlfriend. Patient has not COVID-19 vaccinated. - Related Data Home Medications Medication Instructions Recorded Confirmed Albuterol Sulfate [Proair Hfa] 1 - 2 puff INHALATION RT-QID PRN 02/05/20 02/05/20 Ibuprofen [Motrin] 800 mg PO Q8H PRN 02/05/20 02/05/20 Ipratropium [place] [Atrovent Hfa] 2 puff INHALATION RT-QID PRN 02/05/20 02/05/20 Previous Rx's Medication Instructions Recorded Amoxicillin/Potassium Clav 1 each PO Q12HR 10 Days #20 tab 02/05/20 [Augmentin 875-125 Tablet] levETIRAcetam [Keppra] 500 mg PO BID 14 Days #28 tab 02/05/20 predniSONE 50 mg PO DAILY #5 tab 11/28/20 Allergies Allergy/AdvReac Type Severity Reaction Status Date / Time codeine Allergy Anaphylaxis Verified 08/03/21 14:02 grape Allergy Unknown Verified 08/03/21 14:02 Review of Systems ROS Statement: Those systems with pertinent positive or pertinent negative responses have been documented in the HPI. ROS Other: All systems not noted in ROS Statement are negative. Past Medical History Past Medical History: Asthma, Seizure Disorder Additional Past Medical History / Comment(s): CHRONIC BRONCHITIS History of Any Multi-Drug Resistant Organisms: None Reported Past Surgical History: Adenoidectomy Past Psychological History: Anxiety, Bipolar Smoking Status: Current every day smoker Past Alcohol Use History: Rare Past Drug Use History: Marijuana General Exam Limitations: no limitations General appearance: alert, in no apparent distress Head exam: Present: atraumatic, normocephalic, normal inspection Eye exam: Present: normal appearance, PERRL, EOMI. Absent: scleral icterus, conjunctival injection, periorbital swelling ENT exam: Present: normal exam, mucous membranes moist Neck exam: Present: normal inspection. Absent: tenderness, meningismus, lymphadenopathy Respiratory exam: Present: normal lung sounds bilaterally. Absent: respiratory distress, wheezes, rales, rhonchi, stridor Cardiovascular Exam: Present: regular rate, normal rhythm, normal heart sounds. Absent: systolic murmur, diastolic murmur, rubs, gallop, clicks GI/Abdominal exam: Present: soft, normal bowel sounds. Absent: distended, tenderness, guarding, rebound, rigid Neurological exam: Present: alert, oriented X3, CN II-XII intact Psychiatric exam: Present: normal affect, normal mood Course Vital Signs 08/03/21 14:02 Temperature 99.6 F Pulse Rate 105 H Respiratory 20 Rate Blood Pressure 134/82 O2 Sat by Pulse 97 Oximetry Medical Decision Making - Medical Decision Making This is a 36-year-old male who presents with headache since this morning. Patient is positive COVID-19. He does not meet criteria for monoclonal antibodies. Results discussed with patient. Patient instructed to return to ED if there is refractory fever, shortness of breath, or chest pain. - Lab Data Lab Results 08/03/21 Range/Units 14:07 Coronavirus (PCR) Detected A (Not Detectd) Disposition Clinical Impression: COVID-19 Disposition: HOME SELF-CARE Condition: Good Additional Instructions: Return to the ER if there are any concerning, new, or worsening symptoms, such as fever refractory to medication, shortness of breath, or chest pain. Is patient prescribed a controlled substance at d/c from ED?: No Referrals: None,Stated [Primary Care Provider] - 1-2 days Time of Disposition: 15:03
== END 2021-08-03 15:10 | disposition home or self-care (01) ==
LOC: EC 13:22
DX: U07.1 COVID-19 (principal); J45.909 Unspecified asthma, uncomplicated; F41.9 Anxiety disorder, unspecified; F31.9 Bipolar disorder, unspecified; F17.200 Nicotine dependence, unspecified, uncomplicated; F12.90 Cannabis use, unspecified, uncomplicated; Z88.5 Allergy status to narcotic agent
CPT/HCPCS: 87635; 99284

== ENCOUNTER 2022-04-15 11:28 | Emergency (ER) | payer OTHER ==
[2022-04-15 12:02] VITALS: TEMP 97.9
[2022-04-15] MEDS ORDERED: ONDANSETRON 4 MG/2 ML VIAL IVP STA (13:18)
[2022-04-15] MEDS ORDERED: SODIUM CHLORIDE 0.9% 2,000 ML IV STA (13:19)
[2022-04-15 14:11] LABS: ALT 39 U/L (4-49); African American GFR (CKD) >90 (>60 ml/min/1.73 sqM); Albumin 4.7 g/dL (3.5-5.0); Anion Gap 10 mmol/L; Blood Urea Nitrogen 10 mg/dL (9-20); Carbon Dioxide 25 mmol/L (22-30); Chloride 101 mmol/L (98-107); Glucose 88 mg/dL (74-99); Lipase 101 U/L (23-300); Non-African American GFR(CKD) >90 (>60 ml/min/1.73 sqM); Sodium 136 mmol/L (137-145); Total Bilirubin 0.8 mg/dL (0.2-1.3); Total Protein 7.1 g/dL (6.3-8.2)
[2022-04-15 14:18] LABS: AST 37 U/L (17-59); Potassium 4.6 mmol/L (3.5-5.1)
[2022-04-15 14:19] LABS: Alkaline Phosphatase 58 U/L (38-126)
--- NOTE | 2022-04-15 14:39 | XR ---
EXAMINATION TYPE: XR chest 2V DATE OF EXAM: 04/15/2022 COMPARISON: 11/28/2020 INDICATION: Productive cough, abnormal auscultation TECHNIQUE: Frontal and lateral views of the chest are obtained. FINDINGS: The heart size is normal. The pulmonary vasculature is normal. The lungs are clear. IMPRESSION: 1. No acute pulmonary process.
[2022-04-15 15:42] LABS: Basophils % (A) 1 %; Eosinophils # (A) 0.4 k/uL (0-0.7); Eosinophils % (A) 9 %; HCT 42.6 % (39.0-53.0); HGB 14.3 gm/dL (13.0-17.5); Lymphocytes # (A) 2.3 k/uL (1.0-4.8); Lymphocytes % (A) 45 %; MCH 29.7 pg (25.0-35.0); MCHC 33.7 g/dL (31.0-37.0); MCV 88.2 fL (80.0-100.0); Mean Platelet Volume 7.7; Monocytes # (A) 0.2 k/uL (0-1.0); Monocytes % (A) 5 %; Neutrophils # (A) 1.9 k/uL (1.3-7.7); Neutrophils % (A) 38 %; Platelet Count 200 k/uL (150-450); RBC 4.83 m/uL (4.30-5.90); RDW 12.8 % (11.5-15.5)
--- NOTE | 2022-04-15 16:10 | ED ---
General Adult HPI - General Chief complaint: Nausea/Vomiting/Diarrhea Stated complaint: Nausea Time Seen by Provider: 04/15/22 13:13 Source: patient Mode of arrival: ambulatory Limitations: no limitations - History of Present Illness Initial comments: Patient is a 37-year-old male with past medical history of asthma and seizure disorder who presents to the emergency department with a chief complaint of nausea and vomiting. Reports multiple episodes of nausea and vomiting a day for the past week. Also reports headache and sweats. Denies fever, chills, abdominal pain, diarrhea. No recent sick contacts. No chest pain or shortness of breath. Last bowel movement was today which patient states was normal, nonbloody. Patient denies change in diet. He has been eating and drinking as normal. He does admit to daily marijuana use. - Related Data Previous Rx's Medication Instructions Recorded Ondansetron Odt [Zofran Odt] 4 mg PO Q8HR PRN #10 tab 04/15/22 Allergies Allergy/AdvReac Type Severity Reaction Status Date / Time codeine Allergy Anaphylaxis Verified 04/15/22 14:19 grape Allergy Unknown Verified 04/15/22 14:19 Review of Systems ROS Statement: Those systems with pertinent positive or pertinent negative responses have been documented in the HPI. ROS Other: All systems not noted in ROS Statement are negative. Past Medical History Past Medical History: Asthma, Seizure Disorder Additional Past Medical History / Comment(s): CHRONIC BRONCHITIS History of Any Multi-Drug Resistant Organisms: None Reported Past Surgical History: Adenoidectomy Past Psychological History: Anxiety, Bipolar Smoking Status: Current every day smoker Past Alcohol Use History: Rare Past Drug Use History: Marijuana General Exam Limitations: no limitations General appearance: alert, in no apparent distress Head exam: Present: atraumatic, normocephalic, normal inspection Respiratory exam: Present: normal lung sounds bilaterally. Absent: respiratory distress, wheezes, rales, rhonchi, stridor Cardiovascular Exam: Present: regular rate, normal rhythm, normal heart sounds. Absent: systolic murmur, diastolic murmur, rubs, gallop, clicks GI/Abdominal exam: Present: soft, normal bowel sounds. Absent: distended, tenderness, guarding, rebound, rigid Neurological exam: Present: alert, oriented X3, CN II-XII intact Psychiatric exam: Present: normal affect, normal mood Skin exam: Present: warm, dry, intact, normal color. Absent: rash Course Vital Signs 04/15/22 04/15/22 04/15/22 11:59 14:01 16:33 Temperature 97.9 F Pulse Rate 64 64 66 Respiratory 20 18 18 Rate Blood Pressure 141/77 136/80 138/74 O2 Sat by Pulse 100 100 100 Oximetry Medical Decision Making - Medical Decision Making This is a 37-year-old male sent in with nausea and vomiting. Vitals stable. Abdomen is soft and nontender.Laboratory studies obtained which show no acute abnormality. COVID-19 and influenza are not detected. Patient given IV fluids and Zofran which improved his symptoms. At this time there are no diagnostic studies to explain patient's symptoms. Possibly related to marijuana use. Patient counseled on cessation. He will be discharged with Zofran and instructions to follow-up with his primary care provider. Dr. Ferreira is my attending. - Lab Data Result diagrams: 04/15/22 15:33 04/15/22 13:56 Lab Results 04/15/22 04/15/22 04/15/22 Range/Units 12:03 13:56 14:10 WBC (3.8-10.6) k/uL RBC (4.30-5.90) m/uL Hgb (13.0-17.5) gm/dL Hct (39.0-53.0) % MCV (80.0-100.0) fL MCH (25.0-35.0) pg MCHC (31.0-37.0) g/dL RDW (11.5-15.5) % Plt Count (150-450) k/uL MPV Neutrophils % % Lymphocytes % % Monocytes % % Eosinophils % % Basophils % % Neutrophils # (1.3-7.7) k/uL Lymphocytes # (1.0-4.8) k/uL Monocytes # (0-1.0) k/uL Eosinophils # (0-0.7) k/uL Basophils # (0-0.2) k/uL Sodium 136 L (137-145) mmol/L Potassium 4.6 (3.5-5.1) mmol/L Chloride 101 (98-107) mmol/L Carbon Dioxide 25 (22-30) mmol/L Anion Gap 10 mmol/L BUN 10 (9-20) mg/dL Creatinine 0.87 (0.66-1.25) mg/dL Est GFR (CKD-EPI)AfAm >90 (>60 ml/min/1.73 sqM) Est GFR (CKD-EPI)NonAf >90 (>60 ml/min/1.73 sqM) Glucose 88 (74-99) mg/dL Calcium 9.0 (8.4-10.2) mg/dL Total Bilirubin 0.8 (0.2-1.3) mg/dL AST 37 (17-59) U/L ALT 39 (4-49) U/L Alkaline Phosphatase 58 (38-126) U/L Total Protein 7.1 (6.3-8.2) g/dL Albumin 4.7 (3.5-5.0) g/dL Lipase 101 (23-300) U/L Coronavirus (PCR) Not Detected (Not Detectd) Influenza Type A RNA Not Detected (Not Detectd) Influenza Type B (PCR) Not Detected (Not Detectd) 04/15/22 Range/Units 15:33 WBC 5.0 (3.8-10.6) k/uL RBC 4.83 (4.30-5.90) m/uL Hgb 14.3 (13.0-17.5) gm/dL Hct 42.6 (39.0-53.0) % MCV 88.2 (80.0-100.0) fL MCH 29.7 (25.0-35.0) pg MCHC 33.7 (31.0-37.0) g/dL RDW 12.8 (11.5-15.5) % Plt Count 200 (150-450) k/uL MPV 7.7 Neutrophils % 38 % Lymphocytes % 45 % Monocytes % 5 % Eosinophils % 9 % Basophils % 1 % Neutrophils # 1.9 (1.3-7.7) k/uL Lymphocytes # 2.3 (1.0-4.8) k/uL Monocytes # 0.2 (0-1.0) k/uL Eosinophils # 0.4 (0-0.7) k/uL Basophils # 0.0 (0-0.2) k/uL Sodium (137-145) mmol/L Potassium (3.5-5.1) mmol/L Chloride (98-107) mmol/L Carbon Dioxide (22-30) mmol/L Anion Gap mmol/L BUN (9-20) mg/dL Creatinine (0.66-1.25) mg/dL Est GFR (CKD-EPI)AfAm (>60 ml/min/1.73 sqM) Est GFR (CKD-EPI)NonAf (>60 ml/min/1.73 sqM) Glucose (74-99) mg/dL Calcium (8.4-10.2) mg/dL Total Bilirubin (0.2-1.3) mg/dL AST (17-59) U/L ALT (4-49) U/L Alkaline Phosphatase (38-126) U/L Total Protein (6.3-8.2) g/dL Albumin (3.5-5.0) g/dL Lipase (23-300) U/L Coronavirus (PCR) (Not Detectd) Influenza Type A RNA (Not Detectd) Influenza Type B (PCR) (Not Detectd) Disposition Clinical Impression: Hyperemesis, Cough Disposition: HOME SELF-CARE Instructions (If sedation given, give patient instructions): Acute Nausea and Vomiting (ED) Additional Instructions: Take medication as directed. It is important to stop smoking marijuana as this could be related to your consistent vomiting. Follow-up with primary care provider in one to 2 days. Return to the emergency department experience new, concerning, or worsening symptoms Prescriptions: Ondansetron Odt [Zofran Odt] 4 mg PO Q8HR PRN #10 tab PRN Reason: Nausea Is patient prescribed a controlled substance at d/c from ED?: No Referrals: None,Stated [Primary Care Provider] - 1-2 days Time of Disposition: 16:10
[2022-04-15 17:54] VITALS: RESP 18
[2022-04-15 17:58] VITALS: BP 138/74; PULSE 66
== END 2022-04-15 16:33 | disposition home or self-care (01) ==
LOC: EC 11:28
DX: R11.2 Nausea with vomiting, unspecified (principal); R05.9 Cough, unspecified; J45.909 Unspecified asthma, uncomplicated; F17.200 Nicotine dependence, unspecified, uncomplicated; Z20.822 Contact with and (suspected) exposure to COVID-19; Z88.5 Allergy status to narcotic agent; Z91.018 Allergy to other foods
CPT/HCPCS: 96374 ×2; 96361 ×2; 99284; 99285; 36415; 80053; 83690; 85025; 87502; 87635; 71046; J2405

== ENCOUNTER 2022-06-01 18:32 | Observation (INO) | payer OTHER ==
[2022-06-01] MEDS ORDERED: KETOROLAC 15 MG/ML 1 ML VIAL IVP STA (19:35)
[2022-06-01] MEDS ORDERED: SODIUM CHLORIDE 0.9% 1,000 ML IV ONE (19:35)
[2022-06-01 20:08] LABS: Basophils # (A) 0.1 k/uL (0-0.2); Basophils % (A) 1 %; Eosinophils # (A) 0.6 k/uL (0-0.7); Eosinophils % (A) 6 %; HCT 48.5 % (39.0-53.0); HGB 17.1 gm/dL (13.0-17.5); Lymphocytes # (A) 2.2 k/uL (1.0-4.8); Lymphocytes % (A) 21 %; MCH 30.9 pg (25.0-35.0); MCHC 35.4 g/dL (31.0-37.0); MCV 87.3 fL (80.0-100.0); Mean Platelet Volume 7.6; Monocytes # (A) 0.4 k/uL (0-1.0); Monocytes % (A) 4 %; Neutrophils # (A) 6.9 k/uL (1.3-7.7); Neutrophils % (A) 67 %; Platelet Count 228 k/uL (150-450); RBC 5.55 m/uL (4.30-5.90); RDW 12.4 % (11.5-15.5); WBC 10.3 k/uL (3.8-10.6)
[2022-06-01 20:18] LABS: ALT 31 U/L (4-49); AST 38 U/L (17-59); African American GFR (CKD) >90 (>60 ml/min/1.73 sqM); Albumin 4.9 g/dL (3.5-5.0); Alkaline Phosphatase 78 U/L (38-126); Anion Gap 11 mmol/L; Blood Urea Nitrogen 10 mg/dL (9-20); Calcium 9.7 mg/dL (8.4-10.2); Carbon Dioxide 26 mmol/L (22-30); Chloride 100 mmol/L (98-107); Glucose 109 mg/dL (74-99); Lipase 501 U/L (23-300); Non-African American GFR(CKD) >90 (>60 ml/min/1.73 sqM); Sodium 137 mmol/L (137-145); Total Bilirubin 0.8 mg/dL (0.2-1.3); Total Protein 7.5 g/dL (6.3-8.2)
[2022-06-01 20:27] LABS: Appearance,Urine Clear (Clear); Bilirubin,Urine Negative (Negative); Blood,Urine Moderate (Negative); Color,Urine Yellow; Glucose,Urine (UA) Negative (Negative); Ketones,Urine 2+ (Negative); Leukocyte Esterase,Urine Negative (Negative); Mucus,Urine Many /hpf; Nitrite,Urine Negative (Negative); PH, Urine 5.5 (5.0-8.0); Protein,Urine 1+ (Negative); RBC,Urine 6 /hpf (0-5); Specific Gravity,Urine 1.037 (1.001-1.035); Urobilinogen,Urine <2.0 mg/dL (<2.0); WBC,Urine 3 /hpf (0-5)
--- NOTE | 2022-06-01 21:05 | CT ---
EXAMINATION TYPE: CT abdomen pelvis w con DATE OF EXAM: 06/01/2022 COMPARISON: None HISTORY: abdominal pain x [address] DLP: 1085.3 mGycm Automated exposure control for dose reduction was used. CONTRAST: Performed with IV Contrast, patient injected with 100 mL of Isovue 300. Images obtained from the diaphragm to the floor the pelvis with the IV contrast. The lung bases are clear. No pleural effusion. Heart size is normal. No pericardial effusion. Liver s pleen stomach pancreas gallbladder appear intact. The bile ducts are not dilated. There is no adrenal mass. Kidneys show satisfactory contrast opacification. There is no hydronephrosi s. Ureters are not dilated. No retroperitoneal adenopathy. Appendix is posterior and appears normal. The bladder distends smoothly. No inguinal hernia. There is mild fat stranding around the urinary yolanda dder and minimal bladder wall thickening. There are a few sigmoid diverticula. There is no ascites or free air. No sign of a bowel obstruction. The lumbar vertebra show normal spac ing and alignment. Posterior elements are intact. No compression fracture. Bony pelvis is intact. The hip joints are intact. Delayed images show normal renal excretion. There is mild wall thickening of the mid transverse colon. IMPRESSION: There is some mild wall thickening of the transverse colon that could be some mild nonspecific coliti s. There is urinary bladder mild wall thickening and adjacent fat stranding and could be nonspecific cystitis. Mild sigmoid diverticulosis. No evidence of an abscess. Normal appendix.
[2022-06-01] MEDS ORDERED: fentaNYL (PF) 50 MCG/ML 2 ML AMP IVP PRN (21:15)
--- NOTE | 2022-06-01 21:22 | ED ---
General Adult HPI - General Chief complaint: Abdominal Pain Stated complaint: abd pain Time Seen by Provider: 06/01/22 19:29 Source: patient Mode of arrival: ambulatory Limitations: no limitations - History of Present Illness Initial comments: This is a 37-year-old male without any past medical history presents emergency department for 1 week of abdominal pain. The patient stated this abdominal pain was focused on the left and lower abdomen. The patient stated that he waited until today to come to the emergency department because he did not want to take any time off of work and waited for the 4 day weekend. The patient reported continued abdominal pain in the center, suprapubic and left lower quadrants. The patient stated that he had been eating "Motrin like it's candy." The patient stated that he had only minimal improvement of his pain with this medication. The patient stated that he has not had this pain before and stated that he was concerned speaking to the emergency department. The patient reported associated nausea and vomiting only with bowel movements. The patient stated his last bowel movement was yesterday and was diarrhea. The patient denied any fevers and chills and denied any sick contacts. - Related Data Home Medications Medication Instructions Recorded Confirmed No Known Home Medications 06/01/22 06/01/22 Allergies Allergy/AdvReac Type Severity Reaction Status Date / Time codeine Allergy Anaphylaxis Verified 06/01/22 21:36 grape Allergy Unknown Verified 06/01/22 21:36 Review of Systems ROS Statement: Those systems with pertinent positive or pertinent negative responses have been documented in the HPI. ROS Other: All systems not noted in ROS Statement are negative. Past Medical History Past Medical History: Asthma, Seizure Disorder Additional Past Medical History / Comment(s): CHRONIC BRONCHITIS History of Any Multi-Drug Resistant Organisms: None Reported Past Surgical History: Adenoidectomy Past Psychological History: Anxiety, Bipolar Smoking Status: Current every day smoker Past Alcohol Use History: Rare Past Drug Use History: Marijuana General Exam Limitations: no limitations General appearance: alert, in no apparent distress Head exam: Present: atraumatic, normocephalic Eye exam: Present: normal appearance, PERRL Pupils: Present: normal accommodation ENT exam: Present: normal exam, normal oropharynx, mucous membranes moist Neck exam: Present: normal inspection, full ROM Respiratory exam: Present: normal lung sounds bilaterally Cardiovascular Exam: Present: regular rate, normal rhythm, normal heart sounds GI/Abdominal exam: Present: soft, tenderness (Tenderness noted to the umbilicus, suprapubic and left lower quadrant) Extremities exam: Present: normal inspection, full ROM Back exam: Present: normal inspection, full ROM Neurological exam: Present: alert, oriented X3, CN II-XII intact Psychiatric exam: Present: normal affect, normal mood Skin exam: Present: warm, dry Course Vital Signs 06/01/22 06/01/22 06/01/22 18:36 20:20 21:05 Temperature 98.3 F Pulse Rate 89 72 87 Respiratory 20 20 18 Rate Blood Pressure 158/107 157/105 160/102 O2 Sat by Pulse 97 100 97 Oximetry Medical Decision Making - Medical Decision Making The patient was seen and evaluated in the emergency department. Physical exam, the patient was resting in bed without any acute distress. Vital signs admission were stable and within normal limits. Laboratory workup as well as CT abdomen and pelvis was obtained. The patient did initially receive 1 L normal saline fluid and Toradol. Laboratory workup was largely within normal limits however the patient's lipase was elevated at 506. CT abdomen and pelvis showed some mild wall thickening of the transverse colon that could be some mild nonspecific colitis. There is urinary bladder mild wall thickening and adjacent fat stranding in could be nonspecific cystitis. There is mild sigmoid diverticulosis. There is no evidence of an abscess. There is normal appendix. Due to the patient's elevated lipase, the patient will be admitted for acute pancreatitis. The patient does not have a PCP therefore the covering physician, Dr. Miguel, was contacted and did accept the admission. The patient was told this plan and was agreeable. The patient was admitted in stable condition. - Lab Data Result diagrams: 06/01/22 19:41 06/01/22 19:41 Lab Results 06/01/22 06/01/22 06/01/22 Range/Units 19:41 19:41 19:41 WBC 10.3 (3.8-10.6) k/uL RBC 5.55 (4.30-5.90) m/uL Hgb 17.1 (13.0-17.5) gm/dL Hct 48.5 (39.0-53.0) % MCV 87.3 (80.0-100.0) fL MCH 30.9 (25.0-35.0) pg MCHC 35.4 (31.0-37.0) g/dL RDW 12.4 (11.5-15.5) % Plt Count 228 (150-450) k/uL MPV 7.6 Neutrophils % 67 % Lymphocytes % 21 % Monocytes % 4 % Eosinophils % 6 % Basophils % 1 % Neutrophils # 6.9 (1.3-7.7) k/uL Lymphocytes # 2.2 (1.0-4.8) k/uL Monocytes # 0.4 (0-1.0) k/uL Eosinophils # 0.6 (0-0.7) k/uL Basophils # 0.1 (0-0.2) k/uL Sodium 137 (137-145) mmol/L Potassium 4.0 (3.5-5.1) mmol/L Chloride 100 (98-107) mmol/L Carbon Dioxide 26 (22-30) mmol/L Anion Gap 11 mmol/L BUN 10 (9-20) mg/dL Creatinine 1.03 (0.66-1.25) mg/dL Est GFR (CKD-EPI)AfAm >90 (>60 ml/min/1.73 sqM) Est GFR (CKD-EPI)NonAf >90 (>60 ml/min/1.73 sqM) Glucose 109 H (74-99) mg/dL Calcium 9.7 (8.4-10.2) mg/dL Total Bilirubin 0.8 (0.2-1.3) mg/dL AST 38 (17-59) U/L ALT 31 (4-49) U/L Alkaline Phosphatase 78 (38-126) U/L Total Protein 7.5 (6.3-8.2) g/dL Albumin 4.9 (3.5-5.0) g/dL Lipase 501 H (23-300) U/L Urine Color Yellow Urine Appearance Clear (Clear) Urine pH 5.5 (5.0-8.0) Ur Specific [place] 1.037 H (1.001-1.035) Urine Protein 1+ H (Negative) Urine Glucose (UA) Negative (Negative) Urine Ketones 2+ H (Negative) Urine Blood Moderate H (Negative) Urine Nitrite Negative (Negative) Urine Bilirubin Negative (Negative) Urine Urobilinogen <2.0 (<2.0) mg/dL Ur Leukocyte Esterase Negative (Negative) Urine RBC 6 H (0-5) /hpf Urine WBC 3 (0-5) /hpf Urine Mucus Many H (None) /hpf Disposition Clinical Impression: Pancreatitis Disposition: ADMITTED IP TO THIS HOSP Condition: Stable Is patient prescribed a controlled substance at d/c from ED?: No Referrals: None,Stated [Primary Care Provider] - 1-2 days Time of Disposition: 21:40 Decision to Admit Reason: Admit from EC Decision Date: 06/01/22 Decision Time: 21:40
[2022-06-01] MEDS ORDERED: NALOXONE 0.4 MG/ML 1 ML VIAL IV PRN (21:40)
[2022-06-01] MEDS ORDERED: LORazepam 2 MG/ML INJ IV STA (21:43)
[2022-06-01 21:46] LABS: Glucose,Whole Blood 91 mg/dL (70-110)
[2022-06-01] MEDS: SODIUM CHLORIDE 0.9% 1,000 ML IV SCH (21:50)
[2022-06-01] MEDS ORDERED: MORPHINE SULFATE 4 MG/ML SYRINGE IVP PRN (21:57)
[2022-06-02] MEDS: SODIUM CHLORIDE 0.9% 1,000 ML IV SCH (01:04)
--- NOTE | 2022-06-02 02:33 | P.HPIM ---
History of Present Illness H&P Date: 06/01/22 The patient is a 37-year-old male with a PMH of EtOH abuse, seizure disorder, and asthma who presents to the emergency room with complaints of abdominal pain. The patient reports that he has been experiencing intermittent diffuse abdominal discomfort for the past 4-5 days. States that the pain is 7 out of 10 on maximal intensity, nonradiating, exacerbated with food with no alleviating features. He reports associated nausea with multiple episodes of vomiting. Reports feeling significantly better at the time of interview. Reports some loose bowel movements without any blood or melena. Denies experiencing fever, chills, chest pain, shortness of breath. Patient states that he has been sober from alcohol for the past several years. CT abdomen and pelvis revealed findings consistent with nonspecific colitis and cystitis. Laboratory evaluation was remarkable for lipase of 501. Review of systems: Pertinent positives and negatives as discussed in HPI, a complete review of systems was performed and all other systems are negative. Physical examination: General: non toxic, no distress, appears at stated age, overweight Derm: no unusual rashes/lesions, warm Head: atraumatic, normocephalic, symmetric Eyes: EOMI, no lid lag, anicteric sclera, pupils equal round reactive to light ENT: Nose and ears atraumatic Neck: No cervical lymphadenopathy, trachea midline, supple Mouth: no lip lesion, mucus membranes moist Cardiovascular: S1S2 reg, no murmur, positive dorsalis pedis pulse bilateral, no edema Lungs: CTA bilateral, no rhonchi, no rales, no accessory muscle use Abdominal: soft, mild diffuse tenderness, no guarding Ext: muscle strength 5 out of 5 in all 4 extremities grossly, no gross muscle atrophy, no contractures, Neuro: CN II-XI grossly intact, no gross focal neuro deficits Psych: Alert, oriented, appropriate affect Assessment/plan Mild pancreatitis, unclear etiology -IV fluids -Pain control -CT abdomen and left for evaluation not consistent with biliary etiology -Nothing by mouth for now -Antiemetics DVT prophylaxis -Heparin subcu The patient is admitted with an anticipated less than 2 midnight stay for evaluation of pancreatitis. CODE STATUS: Full Code Discussed with: Patient Anticipated discharge date: in am Anticipated discharge place: Home Past Medical History Past Medical History: Asthma, Seizure Disorder Additional Past Medical History / Comment(s): CHRONIC BRONCHITIS History of Any Multi-Drug Resistant Organisms: None Reported Past Surgical History: Adenoidectomy Past Psychological History: Anxiety, Bipolar Smoking Status: Current every day smoker Past Alcohol Use History: Rare Past Drug Use History: Marijuana - Past Family History Mother Family Medical History: Hypertension Medications and Allergies Home Medications Medication Instructions Recorded Confirmed Type No Known Home Medications 06/01/22 06/01/22 History Allergies Allergy/AdvReac Type Severity Reaction Status Date / Time codeine Allergy Anaphylaxis Verified 06/01/22 21:36 grape Allergy Unknown Verified 06/01/22 21:36 Physical Exam Vitals: Vital Signs Temp Pulse Resp BP Pulse Ox 06/01/22 22:05 98.1 F 80 16 144/94 97 06/01/22 21:50 75 16 150/91 99 06/01/22 21:05 87 18 160/102 97 06/01/22 20:20 72 20 157/105 100 06/01/22 18:36 98.3 F 89 20 158/107 97 Intake and Output 06/01/22 06/01/22 06/02/22 14:59 22:59 06:59 Other: Weight 102.058 kg Results CBC & Chem 7: 06/01/22 19:41 06/01/22 19:41 Labs: Abnormal Lab Results - Last 24 Hours (Table) 06/01/22 06/01/22 Range/Units 19:41 19:41 Glucose 109 H (74-99) mg/dL Lipase 501 H (23-300) U/L Ur Specific [place] 1.037 H (1.001-1.035) Urine Protein 1+ H (Negative) Urine Ketones 2+ H (Negative) Urine Blood Moderate H (Negative) Urine RBC 6 H (0-5) /hpf Urine Mucus Many H (None) /hpf
[2022-06-02] MEDS ORDERED: HEPARIN SODIUM,PORCINE/PF 5,000 UNIT/0.5 ML SYRINGE SQ SCH (08:00)
[2022-06-02 08:55] VITALS: BP 126/76; PULSE 73; RESP 16; TEMP 97.9
--- NOTE | 2022-06-02 12:47 | P.DS ---
Providers Date of admission: 06/01/22 21:40 Expected date of discharge: 06/02/22 Attending physician: Filemon Miguel MD Primary care physician: Stated None Hospital Course: Discharge Diagnosis: Mild pancreatitis Possible colitis and cystitis History of alcohol use Hospital Course: 37-year-old male with a PMH of EtOH abuse, seizure disorder, and asthma who presents to the emergency room with complaints of abdominal pain. Laboratory evaluation showed lipase of 501, CT abdomen and pelvis revealed findings consistent with nonspecific colitis and cystitis. Given typical abdominal pain as well as elevated lipase, patient likely has has mild pancreatitis. Patient was resuscitated with IV fluids. Patient tolerating oral diet, and would like to go home. He states that he has not been drinking alcohol for a while. He still has his gallbladder. CT findings not consistent with gallstone pancreatitis, but he needs a dedicated right upper quadrant ultrasound as an outpatient. Patient follow-up with her primary care doctor. UA consistent with microhematuria. Needs repeat urinalysis as an outpatient. Patient seen and examined at bedside. Vital signs reviewed and stable. General: nontoxic, no distress, appears at stated age Derm: warm, dry Head: atraumatic, normocephalic, symmetric Eyes: EOMI, no lid lag, anicteric sclera Mouth: no lip lesion, mucus membranes moist Cardiovascular: S1S2 reg, no murmur Lungs: CTA bilateral, no rhonchi, no rales , no accessory muscle use Abdominal: soft, nontender to palpation, no guarding, no appreciable organomegaly Ext: no gross muscle atrophy, no edema, no contractures Neuro: CN II-XI grossly intact, no focal neuro deficits Psych: Alert, oriented, appropriate affect A total of 32 minutes of time were spent preparing this complex discharge summary. Patient was discharged on 06/02/22 at 10:20. Patient Condition at Discharge: Stable Plan - Discharge Summary New Discharge Prescriptions: No Action No Known Home Medications Discharge Medication List No Known Home Medications 06/01/22 [History] Follow up Appointment(s)/Referral(s): None,Stated [Primary Care Provider] - 1-2 days Patient Instructions/Handouts: Pancreatitis (DC) Activity/Diet/Wound Care/Special Instructions: Please find PCP as soon as possible to further determine the cause of pancreatitis. You may need an ultrasound to see if there is any gallstones or sludge. You also need repeat urine testing to see the cause of blood in your urine. Continue to keeping yourself hydrated. If worsening abdominal pain, fevers or chills, please return to Emergency. Discharge Disposition: HOME SELF-CARE
== END 2022-06-02 11:00 | disposition home or self-care (01) ==
LOC: EC 18:32 → 6NMEDSUR 21:40
PROVIDERS: ADMIT Internal Medicine; ATTEND Internal Medicine
DX: K85.90 Acute pancreatitis without necrosis or infection, unspecified (principal); N30.91 Cystitis, unspecified with hematuria; J45.909 Unspecified asthma, uncomplicated; G40.909 Epilepsy, unspecified, not intractable, without status epilepticus; J42 Unspecified chronic bronchitis; F31.9 Bipolar disorder, unspecified; F41.9 Anxiety disorder, unspecified; F17.200 Nicotine dependence, unspecified, uncomplicated; Z88.5 Allergy status to narcotic agent
CPT/HCPCS: 96361; 96374; 96375; 99285; 36415; 80053; 83690; 85025; 81001; 74177; G0378 ×3; J2060; J3010; J1885; Q9967

== ENCOUNTER 2022-06-07 13:44 | Emergency (ER) | payer OTHER ==
[2022-06-07] MEDS ORDERED: FAMOTIDINE 20 MG TAB PO STA (16:13)
[2022-06-07] MEDS ORDERED: diphenhydrAMINE 50 MG/ML 1 ML VIAL IM STA (16:13)
[2022-06-07] MEDS ORDERED: methylPREDNISolone SOD SUCCI 125 MG/2 ML VIAL IM ONE (16:13)
--- NOTE | 2022-06-07 16:30 | ED ---
General Adult HPI - General Chief complaint: Allergic Reaction Stated complaint: hives Time Seen by Provider: 06/07/22 15:51 Source: patient Mode of arrival: ambulatory Limitations: no limitations - History of Present Illness Initial comments: Patient is a 37-year-old male presenting with chief complaint of hives. Patient states he woke up this morning with hives all over the body. No difficulty breathing or swallowing. Patient states that his eyes were swollen this morning. He denies any new medications, foods, products. He did take an off brand antihistamine, he is unsure of the name. States that the swelling around his eyes has improved, however he is still intensely pruritic. - Related Data Previous Rx's Medication Instructions Recorded diphenhydrAMINE [Benadryl] 25 mg PO Q4-6H PRN #30 capsule 06/07/22 methylPREDNISolone Dose Pack 4 mg PO DIRECTED #1 packet 06/07/22 [Medrol Dose Pack] Allergies Allergy/AdvReac Type Severity Reaction Status Date / Time codeine Allergy Anaphylaxis Verified 06/01/22 21:36 grape Allergy Unknown Verified 06/01/22 21:36 Review of Systems ROS Statement: Those systems with pertinent positive or pertinent negative responses have been documented in the HPI. ROS Other: All systems not noted in ROS Statement are negative. Past Medical History Past Medical History: Asthma, Seizure Disorder Additional Past Medical History / Comment(s): CHRONIC BRONCHITIS pancreatitis History of Any Multi-Drug Resistant Organisms: None Reported Past Surgical History: Adenoidectomy Past Psychological History: Anxiety, Bipolar Smoking Status: Current every day smoker Past Alcohol Use History: Rare Past Drug Use History: Marijuana - Past Family History Mother Family Medical History: Hypertension General Exam Limitations: no limitations General appearance: alert, in no apparent distress Head exam: Present: atraumatic, normocephalic, normal inspection Eye exam: Present: normal appearance ENT exam: Present: normal exam, normal oropharynx, mucous membranes moist Neck exam: Present: normal inspection, full ROM. Absent: tenderness Respiratory exam: Present: normal lung sounds bilaterally. Absent: respiratory distress, wheezes, rales, rhonchi, stridor Cardiovascular Exam: Present: regular rate, normal rhythm, normal heart sounds. Absent: systolic murmur, diastolic murmur, rubs, gallop, clicks Neurological exam: Present: alert, oriented X3, CN II-XII intact Psychiatric exam: Present: normal affect, normal mood Skin exam: Present: warm, dry, intact, normal color, urticaria Course Vital Signs 06/07/22 06/07/22 14:02 18:25 Temperature 98 F 97.3 F L Pulse Rate 100 68 Respiratory 20 18 Rate Blood Pressure 112/69 120/78 O2 Sat by Pulse 98 98 Oximetry Medical Decision Making - Medical Decision Making Patient is a 37-year-old male presenting with chief complaint of hives. Patient woke up today with hives all over his body, no new medications, foods, or other products. No difficulty breathing or swallowing. On physical examination heart and lungs are clear to auscultation, normal posterior pharynx, breathing is unlabored. Patient is given Benadryl, Solu-Medrol, Pepcid. He reports some relief and the degree of itching. He will be discharged home with Medrol Dosepak and Benadryl.Follow-up with PCP. Report back to ER with any new or w orsening symptoms. Discussed return parameters and answered all questions. Patient conveyed verbal understanding and agreed to the plan. I discussed this case in detail with my attending Dr. Card Disposition Clinical Impression: Urticaria Disposition: HOME SELF-CARE Condition: Good Instructions (If sedation given, give patient instructions): Urticaria (ED) Additional Instructions: Follow-up with PCP. Report back to ER with any new or worsening symptoms. Take medication as prescribed. Take Benadryl as needed. Prescriptions: diphenhydrAMINE [Benadryl] 25 mg PO Q4-6H PRN #30 capsule PRN Reason: Allergic Reaction methylPREDNISolone Dose Pack [Medrol Dose Pack] 4 mg PO DIRECTED #1 packet Is patient prescribed a controlled substance at d/c from ED?: No [facility]] - 1-2 days Time of Disposition: 18:18
[2022-06-07 18:26] VITALS: BP 120/78; PULSE 68; RESP 18; TEMP 97.3
== END 2022-06-07 18:25 | disposition home or self-care (01) ==
LOC: EC 13:44
DX: L50.9 Urticaria, unspecified (principal); F17.200 Nicotine dependence, unspecified, uncomplicated; J45.909 Unspecified asthma, uncomplicated; Z88.5 Allergy status to narcotic agent; Z91.018 Allergy to other foods
CPT/HCPCS: 99283; 96372; J1200; J2930

== ENCOUNTER 2022-06-14 05:51 | Emergency (ER) | payer OTHER ==
[2022-06-14 06:02] VITALS: RESP 16; TEMP 97.4
[2022-06-14] MEDS ORDERED: FAMOTIDINE 20 MG/2 ML VIAL IV STA (06:16)
[2022-06-14] MEDS ORDERED: diphenhydrAMINE 50 MG/ML 1 ML VIAL IVP STA (06:16)
[2022-06-14] MEDS ORDERED: methylPREDNISolone SOD SUCCI 125 MG/2 ML VIAL IV STA (06:16)
[2022-06-14] MEDS ORDERED: SODIUM CHLORIDE 0.9% 1,000 ML IV ONE (06:18)
--- NOTE | 2022-06-14 06:32 | ED ---
General Adult HPI - General Chief complaint: Nausea/Vomiting/Diarrhea Stated complaint: Hives, vomiting Time Seen by Provider: 06/14/22 06:08 Source: patient, RN notes reviewed Mode of arrival: ambulatory Limitations: no limitations - History of Present Illness Initial comments: 37-year-old male coming in for hives. He was seen at this ED about a week ago for this same was given a steroid pack upon discharge. He Notes after last dose of the Steroid Pack His Hives Have Come Back and Are Worse. He states hives are itchy and worse now. He tried taking benadryl last night with no relief. He denies any new soaps, detergents, lotions. Denies any ALLERGIES to foods or recent alcohol use. He notes he was evaluated here for pancreatitis on 06/02/2022 and complains accompanying symptoms abdominal pain and vomiting that started last night. Denies chest pain, shortness of breath, fevers, dysuria, hematuria, flank pain. - Related Data Previous Rx's Medication Instructions Recorded diphenhydrAMINE [Benadryl] 25 mg PO Q4-6H PRN #30 capsule 06/07/22 methylPREDNISolone Dose Pack 4 mg PO DIRECTED #1 packet 06/07/22 [Medrol Dose Pack] Ondansetron [Zofran] 4 mg PO Q8HR PRN #10 tab 06/14/22 predniSONE 50 mg PO DAILY #5 tab 06/14/22 Allergies Allergy/AdvReac Type Severity Reaction Status Date / Time codeine Allergy Anaphylaxis Verified 06/14/22 05:58 grape Allergy Unknown Verified 06/14/22 05:58 Review of Systems ROS Statement: Those systems with pertinent positive or pertinent negative responses have been documented in the HPI. ROS Other: All systems not noted in ROS Statement are negative. Past Medical History Past Medical History: Asthma, Seizure Disorder Additional Past Medical History / Comment(s): CHRONIC BRONCHITIS pancreatitis History of Any Multi-Drug Resistant Organisms: None Reported Past Surgical History: Adenoidectomy Past Psychological History: Anxiety, Bipolar Smoking Status: Current every day smoker Past Alcohol Use History: Rare Past Drug Use History: Marijuana - Past Family History Mother Family Medical History: Hypertension General Exam Limitations: no limitations General appearance: alert, in no apparent distress Head exam: Present: atraumatic, normocephalic, normal inspection Eye exam: Present: normal appearance, PERRL, EOMI. Absent: scleral icterus, conjunctival injection, periorbital swelling ENT exam: Present: normal exam, mucous membranes moist Neck exam: Present: normal inspection. Absent: tenderness, meningismus, lymphadenopathy Respiratory exam: Present: normal lung sounds bilaterally. Absent: respiratory distress, wheezes, rales, rhonchi, stridor Cardiovascular Exam: Present: regular rate GI/Abdominal exam: Present: soft, tenderness (Mild epigastric ), normal bowel sounds. Absent: distended, guarding, rebound, rigid Extremities exam: Present: normal inspection, full ROM, normal capillary refill. Absent: tenderness, pedal edema, joint swelling, calf tenderness Back exam: Present: normal inspection Neurological exam: Present: alert, oriented X3, CN II-XII intact Psychiatric exam: Present: normal affect, normal mood Skin exam: Present: warm, dry, intact, normal color, rash (Diffuse, red, raised rash) Course Vital Signs 06/14/22 06/14/22 05:58 08:06 Temperature 97.4 F L Pulse Rate 100 90 Respiratory 16 16 Rate Blood Pressure 129/82 144/97 O2 Sat by Pulse 98 98 Oximetry Medical Decision Making - Medical Decision Making 37-year-old male coming in for hives and vomiting. Patient had lab work done remarkable for WBC 15.6, CMP unremarkable, lipase 75. Patient was given fluids, Benadryl, Solu-Medrol, Pepcid for symptomatic relief in the ER. She given prescriptions for Zofran and prednisone. Return precautions discussed all questions and concerns addressed the patient. He is encouraged to follow up with his primary care as needed. Case discussed with Dr. Oneill. - Lab Data Result diagrams: 06/14/22 06:25 06/14/22 06:25 Lab Results 06/14/22 06/14/22 Range/Units 06:25 06:25 WBC 15.2 H (3.8-10.6) k/uL RBC 5.72 (4.30-5.90) m/uL Hgb 17.5 (13.0-17.5) gm/dL Hct 49.9 (39.0-53.0) % MCV 87.1 (80.0-100.0) fL MCH 30.5 (25.0-35.0) pg MCHC 35.1 (31.0-37.0) g/dL RDW 12.6 (11.5-15.5) % Plt Count 328 (150-450) k/uL MPV 7.8 Neutrophils % 82 % Lymphocytes % 13 % Monocytes % 3 % Eosinophils % 2 % Basophils % 0 % Neutrophils # 12.5 H (1.3-7.7) k/uL Lymphocytes # 1.9 (1.0-4.8) k/uL Monocytes # 0.4 (0-1.0) k/uL Eosinophils # 0.3 (0-0.7) k/uL Basophils # 0.0 (0-0.2) k/uL Sodium 137 (137-145) mmol/L Potassium 4.0 (3.5-5.1) mmol/L Chloride 104 (98-107) mmol/L Carbon Dioxide 24 (22-30) mmol/L Anion Gap 9 mmol/L BUN 19 (9-20) mg/dL Creatinine 0.73 (0.66-1.25) mg/dL Est GFR (CKD-EPI)AfAm >90 (>60 ml/min/1.73 sqM) Est GFR (CKD-EPI)NonAf >90 (>60 ml/min/1.73 sqM) Glucose 128 H (74-99) mg/dL Calcium 9.0 (8.4-10.2) mg/dL Total Bilirubin 0.8 (0.2-1.3) mg/dL AST 25 (17-59) U/L ALT 32 (4-49) U/L Alkaline Phosphatase 62 (38-126) U/L Total Protein 6.4 (6.3-8.2) g/dL Albumin 4.0 (3.5-5.0) g/dL Lipase 75 (23-300) U/L Disposition Clinical Impression: Nausea & vomiting, Hives Disposition: HOME SELF-CARE Condition: Stable Instructions (If sedation given, give patient instructions): Acute Nausea and Vomiting (ED) Additional Instructions: Please return to the ER if symptoms worsen or persist. Prescriptions: predniSONE 50 mg PO DAILY #5 tab Ondansetron [Zofran] 4 mg PO Q8HR PRN #10 tab PRN Reason: Nausea Is patient prescribed a controlled substance at d/c from ED?: No Referrals: None,Stated [Primary Care Provider] - 1-2 days Time of Disposition: 08:25
[2022-06-14 06:48] LABS: Basophils % (A) 0 %; Eosinophils # (A) 0.3 k/uL (0-0.7); Eosinophils % (A) 2 %; HCT 49.9 % (39.0-53.0); HGB 17.5 gm/dL (13.0-17.5); Lymphocytes # (A) 1.9 k/uL (1.0-4.8); Lymphocytes % (A) 13 %; MCH 30.5 pg (25.0-35.0); MCHC 35.1 g/dL (31.0-37.0); MCV 87.1 fL (80.0-100.0); Mean Platelet Volume 7.8; Monocytes # (A) 0.4 k/uL (0-1.0); Monocytes % (A) 3 %; Neutrophils # (A) 12.5 k/uL (1.3-7.7); Neutrophils % (A) 82 %; Platelet Count 328 k/uL (150-450); RBC 5.72 m/uL (4.30-5.90); RDW 12.6 % (11.5-15.5); WBC 15.2 k/uL (3.8-10.6)
[2022-06-14 06:54] LABS: ALT 32 U/L (4-49); AST 25 U/L (17-59); African American GFR (CKD) >90 (>60 ml/min/1.73 sqM); Alkaline Phosphatase 62 U/L (38-126); Anion Gap 9 mmol/L; Blood Urea Nitrogen 19 mg/dL (9-20); Carbon Dioxide 24 mmol/L (22-30); Chloride 104 mmol/L (98-107); Glucose 128 mg/dL (74-99); Lipase 75 U/L (23-300); Non-African American GFR(CKD) >90 (>60 ml/min/1.73 sqM); Sodium 137 mmol/L (137-145); Total Bilirubin 0.8 mg/dL (0.2-1.3); Total Protein 6.4 g/dL (6.3-8.2)
[2022-06-14 08:44] VITALS: BP 132/82; PULSE 94
== END 2022-06-14 08:44 | disposition home or self-care (01) ==
LOC: EC 05:51
DX: R11.2 Nausea with vomiting, unspecified (principal); L50.9 Urticaria, unspecified; J45.909 Unspecified asthma, uncomplicated; F41.9 Anxiety disorder, unspecified; F31.9 Bipolar disorder, unspecified; F17.200 Nicotine dependence, unspecified, uncomplicated; F12.90 Cannabis use, unspecified, uncomplicated; Z79.899 Other long term (current) drug therapy; Z88.5 Allergy status to narcotic agent; Z91.018 Allergy to other foods
CPT/HCPCS: 36415; 80053; 83690; 85025; 99284; 96374; 96375 ×2; 96361; J1200; J2930

== ENCOUNTER 2022-07-22 19:38 | Emergency (ER) | payer OTHER ==
[2022-07-22 19:44] VITALS: TEMP 97.8
[2022-07-22] MEDS ORDERED: MECLIZINE 12.5 MG TAB PO STA (20:32)
[2022-07-22] MEDS ORDERED: SODIUM CHLORIDE 0.9% 1,000 ML IV STA (20:32)
[2022-07-22 20:53] LABS: Basophils # (A) 0.1 k/uL (0-0.2); Basophils % (A) 2 %; Eosinophils # (A) 0.5 k/uL (0-0.7); Eosinophils % (A) 6 %; HCT 45.6 % (39.0-53.0); HGB 15.5 gm/dL (13.0-17.5); Lymphocytes # (A) 2.9 k/uL (1.0-4.8); Lymphocytes % (A) 35 %; MCH 29.4 pg (25.0-35.0); MCV 86.5 fL (80.0-100.0); Mean Platelet Volume 7.5; Monocytes # (A) 0.4 k/uL (0-1.0); Monocytes % (A) 5 %; Neutrophils # (A) 4.1 k/uL (1.3-7.7); Neutrophils % (A) 50 %; Platelet Count 254 k/uL (150-450); RBC 5.27 m/uL (4.30-5.90); RDW 13.3 % (11.5-15.5); WBC 8.2 k/uL (3.8-10.6)
[2022-07-22 21:02] LABS: INR 0.9 (<1.2)
[2022-07-22 21:06] LABS: Potassium 3.8 mmol/L (3.5-5.1)
[2022-07-22 21:07] LABS: ALT 20 U/L (4-49); AST 20 U/L (17-59); African American GFR (CKD) >90 (>60 ml/min/1.73 sqM); Albumin 3.9 g/dL (3.5-5.0); Alkaline Phosphatase 46 U/L (38-126); Anion Gap 6 mmol/L; Blood Urea Nitrogen 8 mg/dL (9-20); Calcium 8.7 mg/dL (8.4-10.2); Carbon Dioxide 25 mmol/L (22-30); Chloride 110 mmol/L (98-107); Glucose 133 mg/dL (74-99); Non-African American GFR(CKD) >90 (>60 ml/min/1.73 sqM); Sodium 141 mmol/L (137-145); Total Bilirubin 0.4 mg/dL (0.2-1.3); Total Protein 6.2 g/dL (6.3-8.2)
--- NOTE | 2022-07-22 21:24 | XR ---
EXAMINATION TYPE: XR chest 2V DATE OF EXAM: 07/22/2022 COMPARISON: 04/15/2022 HISTORY: Cough TECHNIQUE: 2 views FINDINGS: Heart and mediastinum are normal. Lungs are clear. Diaphragm is normal. Bony thorax is norm al. IMPRESSION: Normal chest. No change.
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
--- NOTE | 2022-07-22 22:11 | ED ---
General Adult HPI - General Chief complaint: Dizziness Stated complaint: Dizziness,NVD Time Seen by Provider: 07/22/22 20:20 Source: patient, RN notes reviewed, old records reviewed Mode of arrival: ambulatory Limitations: no limitations - History of Present Illness Initial comments: Patient is a 37-year-old male who presents in the department with multiple complaints. Has a viral syndrome-like illness including diarrhea for the last few days, rhinorrhea, nonproductive cough. Also noticed a right ear fullness sensation. States that when he stands he intermittently will also have dizziness episodes which he states his lightheadedness also makes with room spinning sensation. Has been ongoing for the last 3 days. Has not improved. Wanted to be evaluated and cleared for work. Does have a history of seizure disorder and does not take any medications. Stopped taking them on his own. Had a breakthrough seizure 3 days ago. Unknown if this is related to his current symptoms. States he did hit his head when he had that seizure. Denies being on blood thinners. Unknown if he lost consciousness. States that when the lightheadedness is bad, and he bends forward and he gets a burning chest discomfort that reminds him of acid reflux. No current pain. States he last had this pain multiple days ago. Primarily presents complaining of the dizziness and clearance for work. No known sick contacts at home. Denies fevers. Endorses intermittent nausea with the lightheadedness, with nonbilious emesis. - Related Data Previous Rx's Medication Instructions Recorded diphenhydrAMINE [Benadryl] 25 mg PO Q4-6H PRN #30 capsule 06/07/22 methylPREDNISolone Dose Pack 4 mg PO DIRECTED #1 packet 06/07/22 [Medrol Dose Pack] Ondansetron [Zofran] 4 mg PO Q8HR PRN #10 tab 06/14/22 predniSONE 50 mg PO DAILY #5 tab 06/14/22 Meclizine [Antivert] 25 mg PO BID PRN 3 Days #6 tab 07/22/22 Allergies Allergy/AdvReac Type Severity Reaction Status Date / Time codeine Allergy Anaphylaxis Verified 07/22/22 19:44 grape Allergy Unknown Verified 07/22/22 19:44 Review of Systems ROS Statement: Those systems with pertinent positive or pertinent negative responses have been documented in the HPI. Review of Systems: CONST: Denies fever EYES: Denies blurry vision ENT: Endorses nasal congestion C/V: Denies Chest pain RESP: Denies shortness of breath GI: Denies abdominal pain : Denies dysuria SKIN: Denies rash. MSK: Denies joint pain. NEURO: Endorses lightheadedness ROS Other: All systems not noted in ROS Statement are negative. Past Medical History Past Medical History: Asthma, Seizure Disorder Additional Past Medical History / Comment(s): CHRONIC BRONCHITIS pancreatitis History of Any Multi-Drug Resistant Organisms: None Reported Past Surgical History: Adenoidectomy Past Psychological History: Anxiety, Bipolar Smoking Status: Current every day smoker Past Alcohol Use History: Rare Past Drug Use History: Marijuana - Past Family History Mother Family Medical History: Hypertension General Exam - General Exam Comments Initial Comments: General: Appears in no acute distress. HEAD: Normal with no signs of head trauma. EYES: PERRLA, EOMI, conjunctiva normal, no discharge. ENT: Hearing grossly intact, normal oropharynx. bilateral tympanic membranes within normal limits. RESPIRATORY: Clear breath sounds bilaterally. No wheezes, rales, or rhonchi. C/V: Regular rate and rhythm. S1 and S2 auscultated, no edema, peripheral pulses 2+ and intact throughout ABD: Abd is soft, nontender, nondistended EXT: Normal range of motion, no obvious deformity SKIN: No rashes or lesions observed on exposed skin. NEURO: Alert and oriented 4.GCS of 15. NIH of 0. no focal sensory strength deficits. Limitations: no limitations Course Vital Signs 07/22/22 07/22/22 07/22/22 19:40 20:52 22:00 Temperature 97.8 F Pulse Rate 96 81 74 Respiratory 20 18 16 Rate Blood Pressure 147/89 132/91 129/94 O2 Sat by Pulse 98 99 Oximetry 07/22/22 22:28 Temperature Pulse Rate 81 Respiratory 18 Rate Blood Pressure 134/94 O2 Sat by Pulse 99 Oximetry Medical Decision Making - Medical Decision Making Was pt. sent in by a medical professional or institution (, PA, RESEARCH SCHOLAR, urgent care, hospital, or custodial...) When possible be specific @ -No Did you speak to anyone other than the patient for history (EMS, parent, family, police, friend...)? What history was obtained from this source @ -No Did you review nursing and triage notes (agree or disagree)? Why? @ -I reviewed and agree with nursing and triage notes Were old charts reviewed (outside hosp., previous admission, EMS record, old EKG, old radiological studies, urgent care reports/EKG's, custodial records)? Report findings @ -Yes, old EKG. Differential Diagnosis (chest pain, altered mental status, abdominal pain women, abdominal pain men, vaginal bleeding, weakness, fever, dyspnea, syncope, headache, dizziness, GI bleed, back pain, seizure, CVA, palpatations, mental health)? @ -Upper respiratory infection, sinusitis, vertigo, intracranial injury, dehydration, COVID-19 infection, influenza infection. EKG interpreted by me (3pts min.). @ -As above X-rays interpreted by me (1pt min.). @ - Chest x-ray reveals no acute cardiopulmonary process, infiltrate CT interpreted by me (1pt min.). @ -CT brain shows no acute intracranial process, injury U/S interpreted by me (1pt. min.). @ -None done What testing was considered but not performed or refused? (CT, X-rays, U/S, labs)? Why? @ -None What meds were considered but not given or refused? Why? @ -None Did you discuss the management of the patient with other professionals (dmitriy srinivasan i.ePhilip Dubois, PA, RESEARCH SCHOLAR, lab, RT, psych nurse, social services aide, tire repair mechanic, teacher, toxics program officer, shoe caser)? Give summary @ -No Was smoking cessation discussed for >3mins.? @ -No Was critical care preformed (if so, how long)? @ -No Were there social determinants of health that impacted care today? How? (Homelessness, low income, unemployed, alcoholism, drug addiction, transportation, low edu. Level, literacy, decrease access to med. care, group home, rehab)? @ -No Was there de-escalation of care discussed even if they declined (Discuss DNR or withdrawal of care, Hospice)? DNR status @ -No What co-morbidities impacted this encounter? (DM, HTN, Smoking, COPD, CAD, Cancer, CVA, ARF, Chemo, Hep., AIDS, mental health diagnosis, sleep apnea, morbid obesity)? @ -None Was patient admitted / discharged? Hospital course, mention meds given and route, prescriptions, significant lab abnormalities, going to OR and other pertinent info. @ -Based on the patient's presentation and physical exam, I do suspect viral syndrome for the patient but cannot rule out other etiology at this time including COVID-19 infection, flu infection. Patient could be dehydrated with his diarrhea. Patient's lightheadedness and dizziness could be related to vertigo or his possible intracranial injury from a fall from a break through seizure a few days ago. Does have a history of seizure disorder. We will obtain screening laboratory studies and EKG. CT brain and chest x-ray will also be obtained. Vital signs within except for limits. He was in agreement this plan. He will receive IV fluids as well as meclizine. EKG showed no signs of acute ischemia. Imaging was unremarkable. Laboratory studies are remarkable for negative flu, RSV, Covid. On reevaluation, patient is feeling improved. Dizziness is resolved. We discuss his findings. Radiology did see mild sinusitis on the patient. I discussed the findings with him, and I believe he is having a viral syndrome. He was in agreement with this plan. Discussed supportive care. He will be given a work note. Strict return precautions were discussed. I will provide the patient with a prescription for meclizine. I instructed the patient to follow up with their PCP in the next 1-3 days. I explained that the patient should return to the emergency department if they experience any worsen ing symptoms. Strict return precautions were discussed with the patient. The patient expressed understanding of these instructions. I answered all questions that the patient had. The patient was discharged home in good condition with their prescriptions and follow up information. Undiagnosed new problem with uncertain prognosis? @ -No Drug Therapy requiring intensive monitoring for toxicity (Heparin, Nitro, Insulin, Cardizem)? @ -No Were any procedures done? @ -No Diagnosis/symptom? @ -Acute viral syndrome Acute, or Chronic, or Acute on Chronic? @ -Acute Uncomplicated (without systemic symptoms) or Complicated (systemic symptoms)? @ -Uncomplicated Side effects of treatment? @ -No Exacerbation, Progression, or Severe Exacerbation? @ -No Poses a threat to life or bodily function? How? (Chest pain, [place], [place], pneumonia, PE, COPD, DKA, ARF, appy, cholecystitis, CVA, Diverticulitis, Homicidal, Suicidal, threat to staff... and all critical care pts) @ -No Diagnosis/symptom? @ -Dizziness, resolved Acute, or Chronic, or Acute on Chronic? @ -Acute Uncomplicated (without systemic symptoms) or Complicated (systemic symptoms)? @ -Uncomplicated Side effects of treatment? @ -none Exacerbation, Progression, or Severe Exacerbation] @ -no Poses a threat to life or bodily function? @ -no - Lab Data Result diagrams: 07/22/22 20:41 07/22/22 20:41 Lab Results 07/22/22 07/22/22 07/22/22 Range/Units 20:41 20:41 20:41 WBC 8.2 (3.8-10.6) k/uL RBC 5.27 (4.30-5.90) m/uL Hgb 15.5 (13.0-17.5) gm/dL Hct 45.6 (39.0-53.0) % MCV 86.5 (80.0-100.0) fL MCH 29.4 (25.0-35.0) pg MCHC 34.0 (31.0-37.0) g/dL RDW 13.3 (11.5-15.5) % Plt Count 254 (150-450) k/uL MPV 7.5 Neutrophils % 50 % Lymphocytes % 35 % Monocytes % 5 % Eosinophils % 6 % Basophils % 2 % Neutrophils # 4.1 (1.3-7.7) k/uL Lymphocytes # 2.9 (1.0-4.8) k/uL Monocytes # 0.4 (0-1.0) k/uL Eosinophils # 0.5 (0-0.7) k/uL Basophils # 0.1 (0-0.2) k/uL PT 10.0 (9.0-12.0) sec INR 0.9 (<1.2) APTT 25.0 (22.0-30.0) sec Sodium 141 (137-145) mmol/L Potassium 3.8 (3.5-5.1) mmol/L Chloride 110 H (98-107) mmol/L Carbon Dioxide 25 (22-30) mmol/L Anion Gap 6 mmol/L BUN 8 L (9-20) mg/dL Creatinine 0.76 (0.66-1.25) mg/dL Est GFR (CKD-EPI)AfAm >90 (>60 ml/min/1.73 sqM) Est GFR (CKD-EPI)NonAf >90 (>60 ml/min/1.73 sqM) Glucose 133 H (74-99) mg/dL Calcium 8.7 (8.4-10.2) mg/dL Total Bilirubin 0.4 (0.2-1.3) mg/dL AST 20 (17-59) U/L ALT 20 (4-49) U/L Alkaline Phosphatase 46 (38-126) U/L Total Protein 6.2 L (6.3-8.2) g/dL Albumin 3.9 (3.5-5.0) g/dL Influenza Type A (PCR) (Not Detectd) Influenza Type B (PCR) (Not Detectd) RSV (PCR) (Not Detectd) SARS-CoV-2 (PCR) (Not Detectd) 07/22/22 Range/Units 20:41 WBC (3.8-10.6) k/uL RBC (4.30-5.90) m/uL Hgb (13.0-17.5) gm/dL Hct (39.0-53.0) % MCV (80.0-100.0) fL MCH (25.0-35.0) pg MCHC (31.0-37.0) g/dL RDW (11.5-15.5) % Plt Count (150-450) k/uL MPV Neutrophils % % Lymphocytes % % Monocytes % % Eosinophils % % Basophils % % Neutrophils # (1.3-7.7) k/uL Lymphocytes # (1.0-4.8) k/uL Monocytes # (0-1.0) k/uL Eosinophils # (0-0.7) k/uL Basophils # (0-0.2) k/uL PT (9.0-12.0) sec INR (<1.2) APTT (22.0-30.0) sec Sodium (137-145) mmol/L Potassium (3.5-5.1) mmol/L Chloride (98-107) mmol/L Carbon Dioxide (22-30) mmol/L Anion Gap mmol/L BUN (9-20) mg/dL Creatinine (0.66-1.25) mg/dL Est GFR (CKD-EPI)AfAm (>60 ml/min/1.73 sqM) Est GFR (CKD-EPI)NonAf (>60 ml/min/1.73 sqM) Glucose (74-99) mg/dL Calcium (8.4-10.2) mg/dL Total Bilirubin (0.2-1.3) mg/dL AST (17-59) U/L ALT (4-49) U/L Alkaline Phosphatase (38-126) U/L Total Protein (6.3-8.2) g/dL Albumin (3.5-5.0) g/dL Influenza Type A (PCR) Not Detected (Not Detectd) Influenza Type B (PCR) Not Detected (Not Detectd) RSV (PCR) Not Detected (Not Detectd) SARS-CoV-2 (PCR) Not Detected (Not Detectd) - EKG Data -: EKG Interpreted by Me EKG Comments: 12-lead Electrocardiogram Interpretation Note EKG was reviewed and interpreted by myself. 12-lead ECG performed at 2156 is interpreted by me as revealing normal sinus rhythm at a rate of 73 beats per minute. [place] is normal. MN interval is 151 ms, QR zoroastrianism is 97 ms, QTc is 396 seconds.. There were no ST or T wave abnormalities to suggest myocardial ischemia or injury. R wave progression across the precordium was satisfactory. By my interpretation this EKG is non-diagnostic for acute ischemia. When compared with EKG from November 2020, no significant change. Disposition Clinical Impression: Viral syndrome, Dizzy Disposition: HOME SELF-CARE Condition: Good Instructions (If sedation given, give patient instructions): Viral Syndrome (ED), Dizziness (ED) Prescriptions: Meclizine [Antivert] 25 mg PO BID PRN 3 Days #6 tab PRN Reason: vertigo Is patient prescribed a controlled substance at d/c from ED?: No Referrals: None,Stated [Primary Care Provider] - 1-2 days Time of Disposition: 22:15
[2022-07-22 22:29] VITALS: BP 134/94; PULSE 81; RESP 18
== END 2022-07-22 22:29 | disposition home or self-care (01) ==
LOC: EC 19:38
DX: R42 Dizziness and giddiness (principal); B34.9 Viral infection, unspecified; J45.909 Unspecified asthma, uncomplicated; F31.9 Bipolar disorder, unspecified; F41.9 Anxiety disorder, unspecified; F17.200 Nicotine dependence, unspecified, uncomplicated; F12.90 Cannabis use, unspecified, uncomplicated; Z88.5 Allergy status to narcotic agent; Z91.018 Allergy to other foods; Z20.822 Contact with and (suspected) exposure to COVID-19
CPT/HCPCS: 36415; 70450; 71046; 80053; 85025; 85610; 85730; 87636; 93005; 99285

== ENCOUNTER 2022-11-08 17:54 | Emergency (ER) | payer OTHER ==
[2022-11-08 18:29] VITALS: BP 137/85; PULSE 74; RESP 20; TEMP 97.9
--- NOTE | 2022-11-08 18:58 | XR ---
EXAMINATION TYPE: XR abdomen 2V DATE OF EXAM: 11/08/2022 COMPARISON: NONE HISTORY: Pain TECHNIQUE: Two view abdominal series FINDINGS: The osseous structures are intact. The bowel gas pattern is nonspecific. Lung bases are clear. IMPRESSION: 1. Nonspecific abdomen.
[2022-11-08] MEDS ORDERED: KETOROLAC 15 MG/ML 1 ML VIAL IVP STA (19:47)
[2022-11-08] MEDS ORDERED: SODIUM CHLORIDE 0.9% 1,000 ML IV STA (19:47)
[2022-11-08] MEDS ORDERED: ONDANSETRON 4 MG/2 ML VIAL IVP STA (19:47)
[2022-11-08 20:34] LABS: Basophils # (A) 0.1 k/uL (0-0.2); Basophils % (A) 1 %; Eosinophils # (A) 0.6 k/uL (0-0.7); Eosinophils % (A) 6 %; HCT 44.3 % (39.0-53.0); HGB 15.4 gm/dL (13.0-17.5); Lymphocytes # (A) 2.8 k/uL (1.0-4.8); Lymphocytes % (A) 31 %; MCH 30.1 pg (25.0-35.0); MCHC 34.8 g/dL (31.0-37.0); MCV 86.5 fL (80.0-100.0); Mean Platelet Volume 7.8; Monocytes # (A) 0.4 k/uL (0-1.0); Monocytes % (A) 5 %; Neutrophils % (A) 55 %; Platelet Count 209 k/uL (150-450); RBC 5.13 m/uL (4.30-5.90); RDW 12.8 % (11.5-15.5)
[2022-11-08 20:56] LABS: ALT 24 U/L (4-49); AST 23 U/L (17-59); African American GFR (CKD) >90 (>60 ml/min/1.73 sqM); Albumin 4.4 g/dL (3.5-5.0); Alkaline Phosphatase 52 U/L (38-126); Amylase 61 U/L (30-110); Anion Gap 10 mmol/L; Blood Urea Nitrogen 15 mg/dL (9-20); Calcium 8.9 mg/dL (8.4-10.2); Carbon Dioxide 23 mmol/L (22-30); Chloride 103 mmol/L (98-107); Glucose 87 mg/dL (74-99); Lipase 96 U/L (23-300); Non-African American GFR(CKD) >90 (>60 ml/min/1.73 sqM); Potassium 4.2 mmol/L (3.5-5.1); Sodium 136 mmol/L (137-145); Total Bilirubin 0.4 mg/dL (0.2-1.3); Total Protein 6.9 g/dL (6.3-8.2)
--- NOTE | 2022-11-08 21:36 | CT ---
EXAMINATION TYPE: CT abdomen pelvis w con DATE OF EXAM: 11/08/2022 COMPARISON: Prior CT June 01, 2022 HISTORY: pt c/o of lower abdominal pains CT DLP: 1282 mGycm, Automated Exposure Control for Dose Reduction was Utilized. CONTRAST: CT scan of the abdomen and pelvis is performed without oral and with IV Contrast, patient injected wi th 100 mL of Isovue 300. FINDINGS: LUNG BASES: No significant abnormality is appreciated. LIVER/GB: No significant abnormality is appreciated. PANCREAS: No significant abnormality is seen. SPLEEN: No significant abnormality is seen. ADRENALS: No significant abnormality is seen. KIDNEYS: Symmetric cortical medullary uptake and excretion without hydronephrosis seen bilaterally. U rinary bladder shows mild wall indistinctness and thickening. Acute cystitis can have this appearance . Correlate clinically. BOWEL: Slightly suboptimal evaluation without enteric contrast. No suspicious small or large bowel di latation is seen. Appendix appears within normal limits from the base of cecum coronal image 49. Few diverticula in the sigmoid colon are redemonstrated. No convincing CT evidence for acute diverticulit is on current study. PROSTATE/SEMINAL VESICLES: No gross abnormality seen. LYMPH NODES: No greater than 1cm abdominal or pelvic lymph nodes are appreciated. OSSEOUS STRUCTURES: No significant abnormality is seen. OTHER: No significant additional abnormality is seen. IMPRESSION: Mild wall thickening and indistinctness of the bladder could be product of acute cystitis . Correlate clinically and with urine lab values. Otherwise no significant new or acute finding is pr esent.
[2022-11-08 22:17] LABS: Appearance,Urine Clear (Clear); Bilirubin,Urine Negative (Negative); Blood,Urine Small (Negative); Color,Urine Yellow; Glucose,Urine (UA) Negative (Negative); Ketones,Urine Negative (Negative); Leukocyte Esterase,Urine Negative (Negative); Mucus,Urine Rare /hpf; Nitrite,Urine Negative (Negative); PH, Urine 5.5 (5.0-8.0); Protein,Urine Negative (Negative); RBC,Urine 1 /hpf (0-5); Squamous Epithelial Cell,Urine <1 /hpf (0-4); Urobilinogen,Urine <2.0 mg/dL (<2.0); WBC,Urine <1 /hpf (0-5)
[2022-11-08 22:31] LABS: Specific Gravity,Urine 1.046 (1.001-1.035)
--- NOTE | 2022-11-08 22:37 | ED ---
Abdominal Pain HPI - General Chief Complaint: Abdominal Pain Stated Complaint: Abd pain Time Seen by Provider: 11/08/22 19:40 Source: patient Mode of arrival: ambulatory Limitations: no limitations - History of Present Illness Initial Comments: Patient is a 37-year-old male presenting with chief complaint of abdominal pain. Patient has had ongoing lower abdominal pain for several days. He also states that today when he was having a bowel movement he felt a bulge out of the rectum which he had to manually reduce. No nausea, vomiting, fever, chills, diarrhea, hematochezia, melena, chest pain, difficulty breathing, palpitations, weakness, numbness, tingling, dysuria, hematuria, flank pain. - Related Data Previous Rx's Medication Instructions Recorded Levofloxacin [Levaquin] 500 mg PO DAILY 7 Days #7 tab 09/13/22 methylPREDNISolone Dose Pack 4 mg PO DIRECTED #1 packet 09/13/22 [Medrol Dose Pack] Allergies Allergy/AdvReac Type Severity Reaction Status Date / Time amoxicillin [From Augmentin] Allergy Face Verified 11/08/22 18:30 Swelling clavulanic acid Allergy Face Verified 11/08/22 18:30 [From Augmentin] Swelling codeine Allergy Anaphylaxis Verified 11/08/22 18:30 grape Allergy Anaphylaxis Verified 11/08/22 18:30 & Hives head to toe Review of Systems ROS Statement: Those systems with pertinent positive or pertinent negative responses have been documented in the HPI. ROS Other: All systems not noted in ROS Statement are negative. Past Medical History Past Medical History: Asthma, Seizure Disorder Additional Past Medical History / Comment(s): CHRONIC BRONCHITIS pancreatitis History of Any Multi-Drug Resistant Organisms: None Reported Past Surgical History: Adenoidectomy, Ear Surgery Past Psychological History: Anxiety, Bipolar Smoking Status: Current every day smoker Past Alcohol Use History: Rare Past Drug Use History: Marijuana - Past Family History Mother Family Medical History: Hypertension General Exam Limitations: no limitations General appearance: alert, in no apparent distress Head exam: Present: atraumatic, normocephalic, normal inspection Eye exam: Present: normal appearance, EOMI. Absent: scleral icterus, perior bital swelling Neck exam: Present: normal inspection, full ROM Respiratory exam: Present: normal lung sounds bilaterally. Absent: respiratory distress, wheezes, rales, rhonchi, stridor Cardiovascular Exam: Present: regular rate, normal rhythm, normal heart sounds. Absent: systolic murmur, diastolic murmur, rubs, gallop, clicks GI/Abdominal exam: Present: soft, tenderness (Right lower quadrant), guarding. Absent: distended, rebound, rigid, normal bowel sounds Rectal exam: Present: normal inspection. Absent: hemorrhoids Neurological exam: Present: alert, oriented X3, CN II-XII intact Psychiatric exam: Present: normal affect, normal mood Skin exam: Present: warm, dry, intact, normal color. Absent: rash Course Vital Signs 11/08/22 18:27 Temperature 97.9 F Pulse Rate 74 Respiratory 20 Rate Blood Pressure 137/85 O2 Sat by Pulse 98 Oximetry Medical Decision Making - Medical Decision Making Was pt. sent in by a medical professional or institution (, PA, [employer] [facility], urgent care, hospital, or assisted...) When possible be specific @ -No Did you speak to anyone other than the patient for history (EMS, parent, family, police, friend...)? What history was obtained from this source @ -No Did you review nursing and triage notes (agree or disagree)? Why? @ -I reviewed and agree with nursing and triage notes Were old charts reviewed (outside hosp., previous admission, EMS record, old EKG, old radiological studies, urgent care reports/EKG's, assisted records)? Report findings @ -No old charts were reviewed Differential Diagnosis (chest pain, altered mental status, abdominal pain women, abdominal pain men, vaginal bleeding, weakness, fever, dyspnea, syncope, headache, dizziness, GI bleed, back pain, seizure, CVA, palpatations, mental health, musculoskeletal)? @ -MDM Differential Abdominal Pain Men: Appendicitis, cholecystitis, diverticulosis, ischemic bowel, pancreatitis, hepatitis, UTI, gastroenteritis, AAA, incarcerated hernia, bowel obstruction, constipation, inflammatory bowel, hepatitis, peptic ulcer disease, splenic infarction, perforated viscus, testicular torsion... This is not meant to be an all-inclusive list EKG interpreted by me (3pts min.). @ -As above X-rays interpreted by me (1pt min.). @ -Abdominal x-ray shows no acute process. CT interpreted by me (1pt min.). @ -CT shows mild thickening of the bladder wall otherwise no acute process. Shows evidence for constipation U/S interpreted by me (1pt. min.). @ -None done What testing was considered but not performed or refused? (CT, X-rays, U/S, labs)? Why? @ -None What meds were considered but not given or refused? Why? @ -None Did you discuss the management of the patient with other professionals (professionals i.e. , PA, [employer], lab, RT, psych nurse, social work assistant, robot programmer, teacher, tactical intelligence officer, family independence case manager)? Give summary @ -No Was smoking cessation discussed for >3mins.? @ -No Was critical care preformed (if so, how long)? @ -No Were there social determinants of health that impacted care today? How? (Homelessness, low income, unemployed, alcoholism, drug addiction, transportation, low edu. Level, literacy, decrease access to med. care, long term, rehab)? @ -No Was there de-escalation of care discussed even if they declined (Discuss DNR or withdrawal of care, Hospice)? DNR status @ -No What co-morbidities impacted this encounter? (DM, HTN, Smoking, COPD, CAD, Cancer, CVA, ARF, Chemo, Hep., AIDS, mental health diagnosis, sleep apnea, morbi d obesity)? @ -None Was patient admitted / discharged? Hospital course, mention meds given and route, prescriptions, significant lab abnormalities, going to OR and other pertinent info. @ -Discharge. Patient is a 37-year-old male presenting with chief complaint of abdominal pain ongoing for a few days, today he had a bulging sensation near the rectum which he had to manually reduce which she believes to be his intestines. On physical examination there is tenderness in the right lower quadrant with guarding. Normal inspection of the rectum, declined digital exam. Lab work shows no leukocytosis or anemia. CMP and urine are essentially unremarkable. Abdominal x-ray ordered in triage shows no acute process. CT of the abdomen and pelvis shows bladder wall thickening and no other acute process. Urine does not correspond for cystitis. CT also shows evidence of constipation. Patient is educated on these findings. Instructed that magnesium citrate may be helpful in alleviating his constipation and encouraged the use of fiber supplements and MiraLAX afterwards to help maintain regular stools and prevent constipation. He is given a referral to surgery for colonoscopy. Follow-up with PCP. Report back to ER with any new or worsening symptoms. Discussed return parameters and answered all questions. Patient conveyed verbal understanding and agreed to the plan. I discussed this case in detail with my attending Dr. Pena Undiagnosed new problem with uncertain prognosis? @ -No Drug Therapy requiring intensive monitoring for toxicity (Heparin, Nitro, Insulin, Cardizem)? @ -No Were any procedures done? @ -No Diagnosis/symptom? @ -Constipation Acute, or Chronic, or Acute on Chronic? @ -Acute Uncomplicated (without systemic symptoms) or Complicated (systemic symptoms)? @ -Uncomplicated Side effects of treatment? @ -No Exacerbation, Progression, or Severe Exacerbation? @ -No Poses a threat to life or bodily function? How? (Chest pain, [place], [place], pneumonia, PE, COPD, DKA, ARF, appy, cholecystitis, CVA, Diverticulitis, Homicidal, Suicidal, threat to staff... and all critical care pts) @ -No - Lab Data Result diagrams: 11/08/22 19:58 11/08/22 19:58 Lab Results 11/08/22 11/08/22 11/08/22 Range/Units 19:58 19:58 19:58 WBC 9.0 (3.8-10.6) k/uL RBC 5.13 (4.30-5.90) m/uL Hgb 15.4 (13.0-17.5) gm/dL Hct 44.3 (39.0-53.0) % MCV 86.5 (80.0-100.0) fL MCH 30.1 (25.0-35.0) pg MCHC 34.8 (31.0-37.0) g/dL RDW 12.8 (11.5-15.5) % Plt Count 209 (150-450) k/uL MPV 7.8 Neutrophils % 55 % Lymphocytes % 31 % Monocytes % 5 % Eosinophils % 6 % Basophils % 1 % Neutrophils # 5.0 (1.3-7.7) k/uL Lymphocytes # 2.8 (1.0-4.8) k/uL Monocytes # 0.4 (0-1.0) k/uL Eosinophils # 0.6 (0-0.7) k/uL Basophils # 0.1 (0-0.2) k/uL Sodium 136 L (137-145) mmol/L Potassium 4.2 (3.5-5.1) mmol/L Chloride 103 (98-107) mmol/L Carbon Dioxide 23 (22-30) mmol/L Anion Gap 10 mmol/L BUN 15 (9-20) mg/dL Creatinine 0.81 (0.66-1.25) mg/dL Est GFR (CKD-EPI)AfAm >90 (>60 ml/min/1.73 sqM) Est GFR (CKD-EPI)NonAf >90 (>60 ml/min/1.73 sqM) Glucose 87 (74-99) mg/dL Plasma Lactic Acid Christian (0.7-2.0) mmol/L Calcium 8.9 (8.4-10.2) mg/dL Total Bilirubin 0.4 (0.2-1.3) mg/dL AST 23 (17-59) U/L ALT 24 (4-49) U/L Alkaline Phosphatase 52 (38-126) U/L Total Protein 6.9 (6.3-8.2) g/dL Albumin 4.4 (3.5-5.0) g/dL Amylase 61 (30-110) U/L Lipase 96 (23-300) U/L Urine Color Yellow Urine Appearance Clear (Clear) Urine pH 5.5 (5.0-8.0) Ur Specific [place] 1.046 H (1.001-1.035) Urine Protein Negative (Negative) Urine Glucose (UA) Negative (Negative) Urine Ketones Negative (Negative) Urine Blood Small H (Negative) Urine Nitrite Negative (Negative) Urine Bilirubin Negative (Negative) Urine Urobilinogen <2.0 (<2.0) mg/dL Ur Leukocyte Esterase Negative (Negative) Urine RBC 1 (0-5) /hpf Urine WBC <1 (0-5) /hpf Ur Squamous Epith Cells <1 (0-4) /hpf Urine Mucus Rare H (None) /hpf 11/08/22 Range/Units 19:58 WBC (3.8-10.6) k/uL RBC (4.30-5.90) m/uL Hgb (13.0-17.5) gm/dL Hct (39.0-53.0) % MCV (80.0-100.0) fL MCH (25.0-35.0) pg MCHC (31.0-37.0) g/dL RDW (11.5-15.5) % Plt Count (150-450) k/uL MPV Neutrophils % % Lymphocytes % % Monocytes % % Eosinophils % % Basophils % % Neutrophils # (1.3-7.7) k/uL Lymphocytes # (1.0-4.8) k/uL Monocytes # (0-1.0) k/uL Eosinophils # (0-0.7) k/uL Basophils # (0-0.2) k/uL Sodium (137-145) mmol/L Potassium (3.5-5.1) mmol/L Chloride (98-107) mmol/L Carbon Dioxide (22-30) mmol/L Anion Gap mmol/L BUN (9-20) mg/dL Creatinine (0.66-1.25) mg/dL Est GFR (CKD-EPI)AfAm (>60 ml/min/1.73 sqM) Est GFR (CKD-EPI)NonAf (>60 ml/min/1.73 sqM) Glucose (74-99) mg/dL Plasma Lactic Acid Christian 0.6 L (0.7-2.0) mmol/L Calcium (8.4-10.2) mg/dL Total Bilirubin (0.2-1.3) mg/dL AST (17-59) U/L ALT (4-49) U/L Alkaline Phosphatase (38-126) U/L Total Protein (6.3-8.2) g/dL Albumin (3.5-5.0) g/dL Amylase (30-110) U/L Lipase (23-300) U/L Urine Color Urine Appearance (Clear) Urine pH (5.0-8.0) Ur Specific [place] (1.001-1.035) Urine Protein (Negative) Urine Glucose (UA) (Negative) Urine Ketones (Negative) Urine Blood (Negative) Urine Nitrite (Negative) Urine Bilirubin (Negative) Urine Urobilinogen (<2.0) mg/dL Ur Leukocyte Esterase (Negative) Urine RBC (0-5) /hpf Urine WBC (0-5) /hpf Ur Squamous Epith Cells (0-4) /hpf Urine Mucus (None) /hpf Disposition Clinical Impression: Constipation Disposition: HOME SELF-CARE Condition: Good Instructions (If sedation given, give patient instructions): Constipation (ED), High Fiber Diet (ED) Additional Instructions: follow-up with PCP. Report back to ER with any new or worsening symptoms. Use OTC magnesium citrate to help with constipation. Afterwards daily miralax and [id number] metamucil can help prevent constipation. Is patient prescribed a controlled substance at d/c from ED?: No Referrals: None,Stated [Primary Care Provider] - 1-2 days Guilherme Rider MD [STAFF PHYSICIAN] - 1-2 days Jose Enrique Marie MD [REFERRING] - 1-2 days Lukasz Murcia MD [STAFF PHYSICIAN] - 1-2 days Time of Disposition: 22:41
== END 2022-11-08 22:46 | disposition home or self-care (01) ==
LOC: EC 17:54
DX: K59.00 Constipation, unspecified (principal); J45.909 Unspecified asthma, uncomplicated; F17.200 Nicotine dependence, unspecified, uncomplicated; F12.90 Cannabis use, unspecified, uncomplicated; Z86.59 Personal history of other mental and behavioral disorders; Z88.1 Allergy status to other antibiotic agents; Z88.0 Allergy status to penicillin; Z88.6 Allergy status to analgesic agent; Z91.018 Allergy to other foods
CPT/HCPCS: 99284; 96374; 96375; 96361; 36415; 80053; 82150; 83605; 83690; 85025; 81001; 74019; 74177; J2405; J1885; Q9967

== ENCOUNTER 2023-09-24 10:06 | Emergency (ER) | payer OTHER ==
--- NOTE | 2023-09-24 10:25 | ED ---
Allergic Reaction HPI - General Chief complaint: Allergic Reaction Stated complaint: Throat/Tongue swelling Time Seen by Provider: 09/24/23 10:24 Source: patient, family, RN notes reviewed Mode of arrival: ambulatory Limitations: no limitations - History of Present Illness Initial Comments: Patient is a 38-year-old male presented to the ER with a chief complaint of tongue and throat swelling. Family states for the past couple days he has been complaining of a sore throat. Patient states he woke up this morning and his throat was extremely sore and swollen. He states his tongue is also swollen. He states that is difficult to talk and swallow. He reports he has many dental cavitis and is unable to follow-up with dentist as he does not have insurance. Denies any difficulty breathing, fevers, chills, new medications, new foods, new products, abdominal pain, chest pain, shortness of breath, peripheral edema. - Related Data Previous Rx's Medication Instructions Recorded Levofloxacin [Levaquin] 500 mg PO DAILY 7 Days #7 tab 09/13/22 methylPREDNISolone Dose Pack 4 mg PO DIRECTED #1 packet 09/13/22 [Medrol Dose Pack] Clindamycin [Cleocin] 450 mg PO Q6H #28 cap 09/24/23 EPINEPHrine (Auto Inject) [Epipen] 0.3 mg IM ONCE PRN #1 each 09/24/23 diphenhydrAMINE [Benadryl] 50 mg PO TID PRN #10 capsule 09/24/23 predniSONE 50 mg PO DAILY #5 tab 09/24/23 Allergies Allergy/AdvReac Type Severity Reaction Status Date / Time amoxicillin [From Augmentin] Allergy Face Verified 09/24/23 10:12 Swelling clavulanic acid Allergy Face Verified 09/24/23 10:12 [From Augmentin] Swelling codeine Allergy Anaphylaxis Verified 09/24/23 10:12 grape Allergy Anaphylaxis Verified 09/24/23 10:12 & Hives head to toe Review of Systems ROS Statement: Those systems with pertinent positive or pertinent negative responses have been documented in the HPI. ROS Other: All systems not noted in ROS Statement are negative. Past Medical History Past Medical History: Asthma, Seizure Disorder Additional Past Medical History / Comment(s): CHRONIC BRONCHITIS pancreatitis History of Any Multi-Drug Resistant Organisms: None Reported Past Surgical History: Adenoidectomy, Ear Surgery Past Psychological History: Anxiety, Bipolar Smoking Status: Current every day smoker Past Alcohol Use History: Rare Past Drug Use History: Marijuana - Past Family History Mother Family Medical History: Hypertension General Exam Limitations: no limitations General appearance: alert, in no apparent distress Head exam: Present: atraumatic, normocephalic, normal inspection Eye exam: Present: normal appearance, PERRL, EOMI. Absent: scleral icterus, conjunctival injection, periorbital swelling ENT exam: Present: normal exam, mucous membranes moist, TM's normal bilaterally, other (Edema to tongue. Posterior pharynx patent. Tenderness to submandibular and submental lymph nodes. No signs of acute distress. Patient talking with hot potato voice) Neck exam: Present: normal inspection. Absent: tenderness, meningismus, lymphadenopathy Respiratory exam: Present: normal lung sounds bilaterally. Absent: respiratory distress, wheezes, rales, rhonchi, stridor Cardiovascular Exam: Present: normal rhythm, tachycardia, normal heart sounds GI/Abdominal exam: Present: soft, normal bowel sounds. Absent: distended, tenderness, guarding, rebound, rigid Neurological exam: Present: alert, oriented X3, CN II-XII intact Psychiatric exam: Present: normal affect, normal mood Skin exam: Present: warm, dry, intact, normal color. Absent: rash Course Vital Signs 09/24/23 09/24/23 10:09 12:14 Temperature 98 F Pulse Rate 105 H 88 Respiratory 18 18 Rate Blood Pressure 117/80 137/80 O2 Sat by Pulse 98 98 Oximetry Medical Decision Making - Medical Decision Making Was pt. sent in by a medical professional or institution (, PA, CHARGE ENTRY SPECIALIST, urgent care, hospital, or care home...) When possible be specific @ -No Did you speak to anyone other than the patient for history (EMS, parent, family, police, friend...)? What history was obtained from this source @ -Family aiding in HPI Did you review nursing and triage notes (agree or disagree)? Why? @ -I reviewed and agree with nursing and triage notes Were old charts reviewed (outside hosp., previous admission, EMS record, old EKG, old radiological studies, urgent care reports/EKG's, care home records)? Report findings @ -No old charts were reviewed Differential Diagnosis (chest pain, altered mental status, abdominal pain women, abdominal pain men, vaginal bleeding, weakness, fever, dyspnea, syncope, headache, dizziness, GI bleed, back pain, seizure, CVA, palpatations, mental health, musculoskeletal)? @ -Cellulitis, [place] angina, dental abscess, cavity, allergic reaction, angioedema EKG interpreted by me (3pts min.). @ -None X-rays interpreted by me (1pt min.). @ -None done CT interpreted by me (1pt min.). @ -None done U/S interpreted by me (1pt. min.). @ -None done What testing was considered but not performed or refused? (CT, X-rays, U/S, labs)? Why? @ -None What meds were considered but not given or refused? Why? @ -None Did you discuss the management of the patient with other professionals (dmitriy srinivasan i.e. , PA, CHARGE ENTRY SPECIALIST, lab, RT, psych nurse, social science instructor, concrete building assembler, teacher, medical officer psychiatry, shoe caser)? Give summary @ -No Was smoking cessation discussed for >3mins.? @ -I discussed smoking cessation for greater than 3 minutes. The risk of smoking were discussed with the patient including but not limited to risks of cancer, stroke, coronary artery disease and COPD. Also discussed with patient were multiple methods of quitting smoking. Lastly we discussed the financial cost of smoking. Was critical care preformed (if so, how long)? @ -No Were there social determinants of health that impacted care today? How? (Homelessness, low income, unemployed, alcoholism, drug addiction, transp ortation, low edu. Level, literacy, decrease access to med. care, snf, rehab)? @ -Patient does not currently have health insurance which he is limited on having PCP and dental care. Was there de-escalation of care discussed even if they declined (Discuss DNR or withdrawal of care, Hospice)? DNR status @ -No What co-morbidities impacted this encounter? (DM, HTN, Smoking, COPD, CAD, Cancer, CVA, ARF, Chemo, Hep., AIDS, mental health diagnosis, sleep apnea, morbid obesity)? @ -Epilepsy, smoker Was patient admitted / discharged? Hospital course, mention meds given and route, prescriptions, significant lab abnormalities, going to OR and other pertinent info. @ -Discharge. Patient is a 38-year-old male presented to the ER with a chief complaint of swollen tongue and throat. History and physical exam completed. Vitals stable. Patient in no signs of acute distress and nontoxic-appearing. Patient was talking with a hot potato voice. Posterior pharynx patent, edema to tongue and under jaw present. Tenderness to submandibular and submental lymph nodes. No drainable dental abcess on exam. Lung sounds clear to auscultation bilaterally. Labs obtained significant for white blood cell count of 15, otherwise unremarkable. Flu, RSV, COVID strep negative. Patient received IV fluids, Benadryl, Pepcid, Solu-Medrol with improvement of symptoms. Upon reevaluation, patient resting comfortably and playing on phone upon entering room. Results discussed with patient, all questions answered. Family reported he had a "seizure about 15 minutes ago". They report he does have a history of seizures but is not on any medication due to no insurance. Family reports they did not notify hospital staff as this is "normal for him". Denies postictal state. Re-examination of patient, patient is in no signs of acute distress. No acute neurological findings on exam. Patient is AxO x 4. Patient will be prescribed clindamycin, EpiPen, Benadryl, prednisone. Educated patient on importance of completing full course of antibiotics as pain and swelling may be due to a dental infection. I advised him to follow-up with a dentist as soon as possible. Referrals given. I also gave referrals for PCP as patient currently does not have care established anywhere. I discussed smoking cessation for greater than 3 minutes. The risk of smoking were discussed with the patient including but not limited to risks of cancer, stroke, coronary artery disease and COPD. Also discussed with patient were multiple methods of quitting smoking. Lastly we discussed the financial cost of smoking. Strict return parameters discussed. Patient discharged in stable condition with follow-up to PCP. Family and patient expressed understanding and agreement with care plan. Case discussed with ED attending, Dr. Oneill. Undiagnosed new problem with uncertain prognosis? @ -No Drug Therapy requiring intensive monitoring for toxicity (Heparin, Nitro, Insulin, Cardizem)? @ -No Were any procedures done? @ -No Diagnosis/symptom? @ -Dental infection/tongue swelling Acute, or Chronic, or Acute on Chronic? @ -Acute Uncomplicated (without systemic symptoms) or Complicated (systemic symptoms)? @ -Uncomplicated Side effects of treatment? @ -No Exacerbation, Progression, or Severe Exacerbation? @ -No Poses a threat to life or bodily function? How? (Chest pain, [place], [place], pneumonia, PE, COPD, DKA, ARF, appy, cholecystitis, CVA, Diverticulitis, Homicidal, Suicidal, threat to staff... and all critical care pts) @ -Yes, dental infection can lead to sepsis and can also lead to airway closure which may cause respiratory distress. - Lab Data Result diagrams: 09/24/23 10:24 09/24/23 10:24 Lab Results 09/24/23 09/24/23 09/24/23 Range/Units 10:24 10:24 10:24 WBC 15.1 H (3.8-10.6) k/uL RBC 5.47 (4.30-5.90) m/uL Hgb 16.5 (13.0-17.5) gm/dL Hct 49.5 (39.0-53.0) % MCV 90.5 (80.0-100.0) fL MCH 30.2 (25.0-35.0) pg MCHC 33.4 (31.0-37.0) g/dL RDW 12.7 (11.5-15.5) % Plt Count 333 (150-450) k/uL MPV 7.5 Neutrophils % 67 % Lymphocytes % 20 % Monocytes % 6 % Eosinophils % 4 % Basophils % 1 % Neutrophils # 10.1 H (1.3-7.7) k/uL Lymphocytes # 3.1 (1.0-4.8) k/uL Monocytes # 0.9 (0-1.0) k/uL Eosinophils # 0.6 (0-0.7) k/uL Basophils # 0.2 (0-0.2) k/uL Sodium 138 (137-145) mmol/L Potassium 4.4 (3.5-5.1) mmol/L Chloride 106 (98-107) mmol/L Carbon Dioxide 23 (22-30) mmol/L Anion Gap 9 mmol/L BUN 13 (9-20) mg/dL Creatinine 0.98 (0.66-1.25) mg/dL Est GFR (CKD-EPI)AfAm >90 (>60 ml/min/1.73 sqM) Est GFR (CKD-EPI)NonAf >90 (>60 ml/min/1.73 sqM) Glucose 109 H (74-99) mg/dL Plasma Lactic Acid Christian 0.9 (0.7-2.0) mmol/L Calcium 9.1 (8.4-10.2) mg/dL Total Bilirubin 0.5 (0.2-1.3) mg/dL AST 39 (17-59) U/L ALT 65 H (4-49) U/L Alkaline Phosphatase 88 (38-126) U/L Total Protein 7.0 (6.3-8.2) g/dL Albumin 4.2 (3.5-5.0) g/dL Influenza Type A (PCR) (Not Detectd) Influenza Type B (PCR) (Not Detectd) RSV (PCR) (Not Detectd) SARS-CoV-2 (PCR) (Not Detectd) Group A Strep (PCR) (Not Detectd) 09/24/23 09/24/23 Range/Units 10:24 10:24 WBC (3.8-10.6) k/uL RBC (4.30-5.90) m/uL Hgb (13.0-17.5) gm/dL Hct (39.0-53.0) % MCV (80.0-100.0) fL MCH (25.0-35.0) pg MCHC (31.0-37.0) g/dL RDW (11.5-15.5) % Plt Count (150-450) k/uL MPV Neutrophils % % Lymphocytes % % Monocytes % % Eosinophils % % Basophils % % Neutrophils # (1.3-7.7) k/uL Lymphocytes # (1.0-4.8) k/uL Monocytes # (0-1.0) k/uL Eosinophils # (0-0.7) k/uL Basophils # (0-0.2) k/uL Sodium (137-145) mmol/L Potassium (3.5-5.1) mmol/L Chloride (98-107) mmol/L Carbon Dioxide (22-30) mmol/L Anion Gap mmol/L BUN (9-20) mg/dL Creatinine (0.66-1.25) mg/dL Est GFR (CKD-EPI)AfAm (>60 ml/min/1.73 sqM) Est GFR (CKD-EPI)NonAf (>60 ml/min/1.73 sqM) Glucose (74-99) mg/dL Plasma Lactic Acid Christian (0.7-2.0) mmol/L Calcium (8.4-10.2) mg/dL Total Bilirubin (0.2-1.3) mg/dL AST (17-59) U/L ALT (4-49) U/L Alkaline Phosphatase (38-126) U/L Total Protein (6.3-8.2) g/dL Albumin (3.5-5.0) g/dL Influenza Type A (PCR) Not Detected (Not Detectd) Influenza Type B (PCR) Not Detected (Not Detectd) RSV (PCR) Not Detected (Not Detectd) SARS-CoV-2 (PCR) Not Detected (Not Detectd) Group A Strep (PCR) NOT DETECTED (Not Detectd) Disposition Clinical Impression: Smoker, Dental infection, Tongue swelling Disposition: HOME SELF-CARE Condition: Stable Instructions (If sedation given, give patient instructions): Dental Abscess (ED), Anaphylaxis (ED) Additional Instructions: Please follow-up with PCP and dentist. Complete full course of clindamycin. Return to ER for any new or worsening symptoms. Prescriptions: diphenhydrAMINE [Benadryl] 50 mg PO TID PRN #10 capsule PRN Reason: Edema Clindamycin [Cleocin] 450 mg PO Q6H #28 cap EPINEPHrine (Auto Inject) [Epipen] 0.3 mg IM ONCE PRN #1 each PRN Reason: Anaphylaxis predniSONE 50 mg PO DAILY #5 tab Is patient prescribed a controlled substance at d/c from ED?: No Referrals: None,Stated [Primary Care Provider] - 1-2 days Nilay Yanez DDS [STAFF PHYSICIAN] - 1-2 days Yesy Moulton DDS [STAFF PHYSICIAN] - 1-2 days Forms: PH Area PCPs Time of Disposition: 12:04
[2023-09-24] MEDS: methylPREDNISolone SOD SUCCI 125 MG/2 ML VIAL IV STA (10:31)
[2023-09-24] MEDS: FAMOTIDINE 20 MG/2 ML VIAL IV STA (10:32)
[2023-09-24] MEDS: SODIUM CHLORIDE 0.9% 1,000 ML IV STA (10:32)
[2023-09-24] MEDS: diphenhydrAMINE 50 MG/ML 1 ML VIAL IVP STA (10:32)
[2023-09-24 10:37] VITALS: RESP 18; TEMP 98
[2023-09-24 11:00] LABS: Basophils # (A) 0.2 k/uL (0-0.2); Basophils % (A) 1 %; Eosinophils # (A) 0.6 k/uL (0-0.7); Eosinophils % (A) 4 %; HCT 49.5 % (39.0-53.0); HGB 16.5 gm/dL (13.0-17.5); Lymphocytes # (A) 3.1 k/uL (1.0-4.8); Lymphocytes % (A) 20 %; MCH 30.2 pg (25.0-35.0); MCHC 33.4 g/dL (31.0-37.0); MCV 90.5 fL (80.0-100.0); Mean Platelet Volume 7.5; Monocytes # (A) 0.9 k/uL (0-1.0); Monocytes % (A) 6 %; Neutrophils # (A) 10.1 k/uL (1.3-7.7); Neutrophils % (A) 67 %; Platelet Count 333 k/uL (150-450); RBC 5.47 m/uL (4.30-5.90); RDW 12.7 % (11.5-15.5); WBC 15.1 k/uL (3.8-10.6)
[2023-09-24 11:16] LABS: ALT 65 U/L (4-49); AST 39 U/L (17-59); African American GFR (CKD) >90 (>60 ml/min/1.73 sqM); Albumin 4.2 g/dL (3.5-5.0); Alkaline Phosphatase 88 U/L (38-126); Anion Gap 9 mmol/L; Blood Urea Nitrogen 13 mg/dL (9-20); Calcium 9.1 mg/dL (8.4-10.2); Carbon Dioxide 23 mmol/L (22-30); Chloride 106 mmol/L (98-107); Glucose 109 mg/dL (74-99); Non-African American GFR(CKD) >90 (>60 ml/min/1.73 sqM); Potassium 4.4 mmol/L (3.5-5.1); Sodium 138 mmol/L (137-145); Total Bilirubin 0.5 mg/dL (0.2-1.3)
[2023-09-24] MEDS: CLINDAMYCIN 150 MG CAP PO STA (12:12)
[2023-09-24 12:17] VITALS: BP 137/80; PULSE 88
== END 2023-09-24 12:15 | disposition home or self-care (01) ==
LOC: EC 10:06
DX: K04.7 Periapical abscess without sinus (principal); R60.0 Localized edema; F17.210 Nicotine dependence, cigarettes, uncomplicated; J45.909 Unspecified asthma, uncomplicated; F12.90 Cannabis use, unspecified, uncomplicated; Z20.822 Contact with and (suspected) exposure to COVID-19; Z88.0 Allergy status to penicillin; Z88.1 Allergy status to other antibiotic agents; Z88.5 Allergy status to narcotic agent; Z91.018 Allergy to other foods
CPT/HCPCS: 36415; 87651; 80053; 83605; 85025; 87636; 99406; 99283; 96374; 96375 ×2; 96361; J1200; J2930; J3490

== ENCOUNTER 2023-09-25 23:32 | Emergency (ER) | payer OTHER ==
[2023-09-26 00:28] VITALS: TEMP 97.9
--- NOTE | 2023-09-26 01:27 | ED ---
ENT HPI - General Chief complaint: ENT Stated complaint: Right Ear Ache, Sore throat Time Seen by Provider: 09/26/23 00:24 Source: patient Mode of arrival: ambulatory Limitations: no limitations - History of Present Illness Initial comments: 38-year-old male presenting to the ED with a chief complaint of right ear pain and also sore throat. Was previously seen here 2 days ago and was discharged home with prescription for clindamycin and prednisone. Has been taking this as prescribed however reports no relief. Also notes some pain prompting present ation to the ED for further evaluation. Has not been taking any pain medications at home. No difficulty breathing. Tolerating secretions. No chest pain or shortness of breath. No other complaints at this time. - Related Data Previous Rx's Medication Instructions Recorded Levofloxacin [Levaquin] 500 mg PO DAILY 7 Days #7 tab 09/13/22 methylPREDNISolone Dose Pack 4 mg PO DIRECTED #1 packet 09/13/22 [Medrol Dose Pack] Clindamycin [Cleocin] 450 mg PO Q6H #28 cap 09/24/23 EPINEPHrine (Auto Inject) [Epipen] 0.3 mg IM ONCE PRN #1 each 09/24/23 diphenhydrAMINE [Benadryl] 50 mg PO TID PRN #10 capsule 09/24/23 predniSONE 50 mg PO DAILY #5 tab 09/24/23 Clindamycin [Cleocin] 450 mg PO Q6H 7 Days #63 capsule 09/26/23 Allergies Allergy/AdvReac Type Severity Reaction Status Date / Time amoxicillin [From Augmentin] Allergy Face Verified 09/25/23 23:48 Swelling clavulanic acid Allergy Face Verified 09/25/23 23:48 [From Augmentin] Swelling codeine Allergy Anaphylaxis Verified 09/25/23 23:48 grape Allergy Anaphylaxis Verified 09/25/23 23:48 & Hives head to toe Review of Systems ROS Statement: Those systems with pertinent positive or pertinent negative responses have been documented in the HPI. ROS Other: All systems not noted in ROS Statement are negative. Past Medical History Past Medical History: Asthma, Seizure Disorder Additional Past Medical History / Comment(s): CHRONIC BRONCHITIS pancreatitis History of Any Multi-Drug Resistant Organisms: None Reported Past Surgical History: Adenoidectomy, Ear Surgery Past Psychological History: Anxiety, Bipolar Smoking Status: Current every day smoker Past Alcohol Use History: Rare Past Drug Use History: Marijuana - Past Family History Mother Family Medical History: Hypertension General Exam Limitations: no limitations General appearance: alert, in no apparent distress Eye exam: Present: normal appearance ENT exam: Present: other (No stridor. Oropharynx is erythematous however no evidence of peritonsillar abscess at this time. No stridor. Tolerating secretions.) Respiratory exam: Present: normal lung sounds bilaterally Cardiovascular Exam: Present: regular rate, normal rhythm GI/Abdominal exam: Present: soft Neurological exam: Present: alert, oriented X3 Skin exam: Present: warm, dry Course Vital Signs 09/25/23 23:44 Temperature 97.9 F Pulse Rate 98 Respiratory 20 Rate Blood Pressure 113/80 O2 Sat by Pulse 100 Oximetry Medical Decision Making - Medical Decision Making Was pt. sent in by a medical professional or institution (MAHIN Dubois, FUNERAL DIRECTOR, urgent care, hospital, or long term...) When possible be specific @ -No Did you speak to anyone other than the patient for history (EMS, parent, family, police, friend...)? What history was obtained from this source @ -No Did you review nursing and triage notes (agree or disagree)? Why? @ -I reviewed and agree with nursing and triage notes Were old charts reviewed (outside hosp., previous admission, EMS record, old EKG, old radiological studies, urgent care reports/EKG's, long term records)? Report findings @ -Prior chart reviewed showing previous visit here. At this time was discharged home with prednisone 50 mg daily and clindamycin as well. Differential Diagnosis (chest pain, altered mental status, abdominal pain women, abdominal pain men, vaginal bleeding, weakness, fever, dyspnea, syncope, headache, dizziness, GI bleed, back pain, seizure, CVA, palpatations, mental health, musculoskeletal)? @ -Differential Fever: Pneumonia, viral URI, endocarditis, myocarditis, pericarditis, otitis, sinusitis, peritonsillar Abscess, retropharyngeal Abscess, epiglottitis, peritonitis, appendicitis, Meche cystitis, diverticulitis, hepatitis, colitis, UTI, PID, TOA, pyelonephritis, prostatitis, epididymitis, meningitis, encephalitis, pulmonary embolism, CVA, thyroid storm, pancreatitis, adrenal crisis, cavernous sinus thrombosis, this is not meant to be an all-inclusive list. EKG interpreted by me (3pts min.). @ -None X-rays interpreted by me (1pt min.). @ -None done CT interpreted by me (1pt min.). @ -None done U/S interpreted by me (1pt. min.). @ -None done What testing was considered but not performed or refused? (CT, X-rays, U/S, labs)? Why? @ -None What meds were considered but not given or refused? Why? @ -None Did you discuss the management of the patient with other professionals (professionals i.e. , PA, FUNERAL DIRECTOR, lab, RT, psych nurse, social worker school, embossing press operator molded goods, teacher, sheriff's officer, case folder)? Give summary @ -No Was smoking cessation discussed for >3mins.? @ -No Was critical care preformed (if so, how long)? @ -No Were there social determinants of health that impacted care today? How? (Homelessness, low income, unemployed, alcoholism, drug addiction, transportation, low edu. Level, literacy, decrease access to med. care, halfway, rehab)? @ -No Was there de-escalation of care discussed even if they declined (Discuss DNR or withdrawal of care, Hospice)? DNR status @ -No What co-morbidities impacted this encounter? (DM, HTN, Smoking, COPD, CAD, Cancer, CVA, ARF, Chemo, Hep., AIDS, mental health diagnosis, sleep apnea, morbid obesity)? @ -None Was patient admitted / discharged? Hospital course, mention meds given and route, prescriptions, significant lab abnormalities, going to OR and other pertinent info. @ -Discharge 38-year-old male presented to the ED with complaints of continued right ear pain and sore throat despite antibiotics and steroids at home. Has not been taking any pain medications at home. Upon review of medications patient has been taking only 150 mg of clindamycin every 6 hours instead of 450 mg clindamycin every 6 hours. Patient was provided an updated prescription. Advised to continue taking his prednisone as prescribed. On examination no evidence of peritonsillar abscess at this time. Vital signs stable afebrile at this time. Discharged home in stable condition. Discussed return precautions with patient who verbalized agreement. Undiagnosed new problem with uncertain prognosis? @ -No Drug Therapy requiring intensive monitoring for toxicity (Heparin, Nitro, Insulin, Cardizem)? @ -No Were any procedures done? @ -No Diagnosis/symptom? @ -Pharyngitis Acute, or Chronic, or Acute on Chronic? @ -Acute Uncomplicated (without systemic symptoms) or Complicated (systemic symptoms)? @ -Uncomplicated Side effects of treatment? @ -No Exacerbation, Progression, or Severe Exacerbation? @ -No Poses a threat to life or bodily function? How? (Chest pain, [place], [place], pneumonia, PE, COPD, DKA, ARF, appy, cholecystitis, CVA, Diverticulitis, Homicidal, Suicidal, threat to staff... and all critical care pts) @ -No Disposition Clinical Impression: Pharyngitis Disposition: HOME SELF-CARE Condition: Good Additional Instructions: Please return to the Emergency Department if symptoms worsen or any other concerns. Please take medications as prescribed. Follow-up with your primary care provider. Prescriptions: Clindamycin [Cleocin] 450 mg PO Q6H 7 Days #63 capsule Is patient prescribed a controlled substance at d/c from ED?: No Referrals: None,Stated [Primary Care Provider] - 1-2 days Time of Disposition: 01:31
[2023-09-26] MEDS: IBUPROFEN 800 MG TAB PO STA (01:29)
[2023-09-26 01:49] VITALS: BP 135/92; PULSE 92; RESP 16
== END 2023-09-26 02:54 | disposition home or self-care (01) ==
LOC: EC 23:32
DX: J02.9 Acute pharyngitis, unspecified (principal); J45.909 Unspecified asthma, uncomplicated; Z88.0 Allergy status to penicillin; Z88.1 Allergy status to other antibiotic agents; Z88.5 Allergy status to narcotic agent; Z91.018 Allergy to other foods
CPT/HCPCS: 99283